=== PATIENT | male | born 1945 | race Caucasian/White ===

== ENCOUNTER 2019-11-17 19:33 | Emergency (ER) | payer MEDICARE, OTHER ==
[2019-11-17 19:43] VITALS: BP 189/80; PULSE 79
[2019-11-17 20:18] LABS: ANION GAP 12.9 mEq/L (7-13); CHLORIDE,CL 93 mmol/L (98-107); SODIUM,NA 129 mmol/L (136-145)
--- NOTE | 2019-11-17 21:17 | EDM.PDOC ---
ED HPI GENERAL MEDICAL PROBLEM - General Chief Complaint: General Stated Complaint: low sodium Time Seen by Provider: 11/17/19 19:40 Source of Information: Reports: Patient History Limitations: Reports: No Limitations - History of Present Illness INITIAL COMMENTS - FREE TEXT/NARRATIVE: [facility]ulatory, [facility] because of low sodium of 127. Patient states feels weak and tired though chronic , Has has low sodium in past. Intermittent night akening to go to bathroom and will feel short of breath walking back to bed. Notices worsening over past couple of week but no change in past 48 hours. No nausea or vomiting. No cough. Myelodysplastic disorder. - Related Data Allergies Allergy/AdvReac Type Severity Reaction Status Date / Time No Known Allergies Allergy Verified 11/17/19 19:43 Home Meds: Home Meds Aspirin [Adult Low Dose Aspirin EC] 81 mg PO DAILY 12/29/15 [History] Ergocalciferol (Vitamin D2) [Drisdol] 1 tab PO DAILY 12/29/15 [History] Insulin Aspart [NovoLOG] 5 - 6 units SUBCUT TIDAC 12/29/15 [History] Insulin NPH Hum/Reg Insulin Hm [Novolin 70-30 100 Unit/ml Vial] 16 units SUBCUT ACBREAKFAST 12/29/15 [History] Insulin NPH Hum/Reg Insulin Hm [Relion Novolin 70-30 Vial] 6 units SUBCUT ACDINNER 12/29/15 [History] Losartan Potassium 100 mg PO BID 12/29/15 [History] Multivitamin [Daily Shahida] 1 tab PO DAILY 12/29/15 [History] Sildenafil Citrate [Viagra] 100 mg PO DAILY PRN 12/29/15 [History] atenoloL [Atenolol] 100 mg PO BID 12/29/15 [History] Anagrelide HCl 1 mg PO BID 11/17/19 [History] Simvastatin 40 mg PO DAILY 11/17/19 [History] cloNIDine [Catapres] 0.2 mg PO BID 11/17/19 [History] Past Medical History HEENT History: Reports: Hard of Hearing Cardiovascular History: Reports: CAD, High Cholesterol, Hypertension Genitourinary History: Reports: Other (See Below) Other Genitourinary History: erectile dysfunction Endocrine/Metabolic History: Reports: Diabetes, Type II Hematologic History: Reports: Idiopathic Thrombocytopenia - Past Surgical History Musculoskeletal Surgical History: Reports: Other (See Below) Social & Family History - Tobacco Use Smoking Status *Q: Never Smoker - Caffeine Use Caffeine Use: Reports: Coffee - Alcohol Use Days Per Week of Alcohol Use: 7 Number of Drinks Per Day: 3 Total Drinks Per Week: 21 - Recreational Drug Use Recreational Drug Use: No ED ROS GENERAL - Review of Systems Review Of Systems: Comprehensive ROS is negative, except as noted in HPI. ED EXAM, GENERAL - Physical Exam Exam: See Below Exam Limited By: No Limitations General Appearance: Alert, No Apparent Distress, Thin Eye Exam: Bilateral Eye: EOMI, PERRL Ears: Normal External Exam Nose: Normal Inspection, Normal Mucosa Throat/Mouth: Normal Inspection, Normal Lips, Normal Oropharynx, Normal Voice Head: Atraumatic, Normocephalic Neck: Normal Inspection, Full Range of Motion Respiratory/Chest: No Respiratory Distress, Lungs Clear Cardiovascular: Normal Peripheral Pulses, Regular Rate, Rhythm, No Edema (1-2+) GI/Abdominal: Normal Bowel Sounds, Soft, Non-Tender Back Exam: Normal Inspection Extremities: Normal Inspection, Pedal Edema Neurological: Alert, Oriented, Normal Cognition, Normal Gait Psychiatric: Normal Affect, Normal Mood Skin Exam: Warm, Dry, Intact, Normal Color Course - Vital Signs Last Recorded V/S: Last Vital Signs Temp 96.9 F 11/17/19 19:38 Pulse 79 11/17/19 19:38 Resp 20 11/17/19 19:38 BP 189/80 H 11/17/19 19:38 Pulse Ox 93 L 11/17/19 19:38 - Orders/Labs/Meds Orders: Active Orders 24 hr Category Date Time Status CXR [Chest 1V Frontal] [CR] Urgent Exams 11/17/19 20:12 Taken CXR [Chest 2V] [CR] Urgent Exams 11/17/19 20:12 Stop Req Labs: Laboratory Tests 11/17/19 11/17/19 Range/Units 19:46 19:46 WBC 12.1 H (5.0-10.0) 10^3/uL RBC 3.90 L (4.6-6.2) 10^6/uL Hgb 11.6 L (14.0-18.0) g/dL Hct 33.9 L (40.0-54.0) % MCV 86.9 D (80-100) fL MCH 29.7 (27.0-34.0) pg MCHC 34.2 (33.0-35.0) g/dL Plt Count 326 D (150-450) 10^3/uL Neut % (Auto) 66.9 (42.2-75.2) % Lymph % (Auto) 17.2 L (20.5-50.1) % [place] % (Auto) 8.8 H (2-8) % Eos % (Auto) 5.5 H (1.0-3.0) % Baso % (Auto) 1.6 H (0.0-1.0) % Sodium 129 L (136-145) mmol/L Potassium 3.9 (3.5-5.1) mmol/L Chloride 93 L (98-107) mmol/L Carbon Dioxide 27 (21-32) mmol/L Anion Gap 12.9 (7-13) mEq/L BUN 22 H (7-18) mg/dL Creatinine 1.64 H (0.70-1.30) mg/dL Est Cr Clr Drug Dosing TNP Estimated GFR (MDRD) 41 BUN/Creatinine Ratio 13.4 (No establ ref range) Glucose 93 (74-99) mg/dL Calcium 8.0 L (8.5-10.1) mg/dL Total Bilirubin 0.5 (0.2-1.0) mg/dL AST 17 (15-37) U/L ALT 16 (16-63) U/L Alkaline Phosphatase 97 (46-116) U/L B-Natriuretic Peptide 437 H (0-100) pg/ml Total Protein 7.4 (6.4-8.2) g/dL Albumin 2.9 L (3.4-5.0) g/dL Globulin 4.5 Albumin/Globulin Ratio 0.64 Amylase 68 (25-115) U/L Lipase 501 H (73-393) U/L TSH, Ultra Sensitive 1.31 (0.36-3.74) uIU/mL - Radiology Interpretation Free Text/Narrative:: [facility] Final Radiology Report Call: [phone] assistance Online chat: [email or web address] Name: DELVIS GONZALEZ Age: 73Years M Date: 11/17/2019 SSN: -- : [id number] Study: XR CHEST 1 VIEW FRONTAL Requesting Physician: YARIEL GANDHI Images: 1 Addl Studies: Provided Clinical History: Contrast: Contrast Medium: Contrast Amount: Contrast Method: CONFIDENTIALITY STATEMENT This report is intended only for use by the referring physician, and only in accordance with law. If you received this in error, call [phone]. Page 1 of 1 PROCEDURE INFORMATION: Exam: XR Chest, 1 View Exam date and time: 11/17/2019 8:20 PM Age: 73 years old Clinical indication: Shortness of breath TECHNIQUE: Imaging protocol: XR of the chest Views: 1 view. COMPARISON: CR Chest 2V 11/16/2019 9:59 AM FINDINGS: Lungs: Right pleural effusion and adjacent infiltrate. Patchy bilateral infiltrates. Pleural space: Unremarkable. No pleural effusion. No pneumothorax. Heart/Mediastinum: Unremarkable. No cardiomegaly. Bones/joints: Bilateral rib fractures, age undetermined. IMPRESSION: Right pleural effusion and adjacent infiltrate. Bilateral rib fractures, age undetermined. Patchy bilateral infiltrates. Thank you for allowing us to participate in the care of your patient. Dictated and Authenticated by: Venus Jason MD 11/17/2019 8:35 PM Central Time ([place] & [place] - Re-Assessments/Exams Free Text/Narrative Re-Assessment/Exam: 11/18/19 06:[address] Eder EPSTEIN. Chronic low Na. Improved slightly from previous. CXR No pneumonia, appearance of worsening of right pleural effusion. Dr. Gaines will contact Radiology to set up tap and contact Oncology service in am. Does not feel patient neede to be transferred tonight. Patient is agreeable with plan stating "feel great" right now. Instructed he should return if any worsening of symptoms and [facility]. Departure - Departure Time of Disposition: 21:15 Disposition: Home, Self-Care 01 Condition: Good Clinical Impression: Hyponatremia, Pleural effusion - Discharge Information *PRESCRIPTION DRUG MONITORING PROGRAM REVIEWED*: No *COPY OF PRESCRIPTION DRUG MONITORING REPORT IN PATIENT ALIDA: No Instructions: Pleural Effusion Forms: ED Department Discharge Additional Instructions: [facility] Urgent follow up if severe SOB, Sudden worsening of symptoms, fever chills, weakness continue home medications Sepsis Event Note - Evaluation Sepsis Screening Result: No Definite Risk - Focused Exam Vital Signs: Vital Signs Temp Pulse Resp BP Pulse Ox 11/17/19 19:38 96.9 F 79 20 189/80 H 93 L Date Exam was Performed: 11/18/19 Time Exam was Performed: 05:57 - My Orders Last 24 Hours: My Active Orders 11/17/19 20:12 CXR [Chest 1V Frontal] [CR] Urgent CXR [Chest 2V] [CR] Urgent - Assessment/Plan Last 24 Hours: My Active Orders 11/17/19 20:12 CXR [Chest 1V Frontal] [CR] Urgent CXR [Chest 2V] [CR] Urgent
== END 2019-11-17 21:27 | disposition home or self-care (01) ==
LOC: DL.ED 19:33
DX: E87.1 Hypo-osmolality and hyponatremia (principal); J90 Pleural effusion, not elsewhere classified; I25.10 Atherosclerotic heart disease of native coronary artery without angina pectoris; E78.00 Pure hypercholesterolemia, unspecified; R06.02 Shortness of breath; I10 Essential (primary) hypertension; E11.9 Type 2 diabetes mellitus without complications; Z79.4 Long term (current) use of insulin; Z79.899 Other long term (current) drug therapy
CPT/HCPCS: 36415; 71045; 80053; 82150; 83690; 83880; 84443; 85025; 99284; 99285-25

== ENCOUNTER 2019-12-08 17:44 | Emergency (ER) | payer MEDICARE, OTHER ==
[2019-12-08 18:30] LABS: ANION GAP 9.2 mEq/L (7-13); CHLORIDE,CL 93 mmol/L (98-107); SODIUM,NA 131 mmol/L (136-145)
--- NOTE | 2019-12-08 19:10 | EDM.PDOC ---
ED HPI GENERAL MEDICAL PROBLEM - General Chief Complaint: General Stated Complaint: SODIUM IS TO LOW Time Seen by Provider: 12/08/19 20:10 Source of Information: Reports: Patient History Limitations: Reports: No Limitations - History of Present Illness INITIAL COMMENTS - FREE TEXT/NARRATIVE: ED for low sodium. Denies complaint but was seen at [facility] labs done and was told to go to ED. - Related Data Allergies Allergy/AdvReac Type Severity Reaction Status Date / Time No Known Allergies Allergy Verified 12/08/19 18:01 Home Meds: Home Meds Aspirin [Adult Low Dose Aspirin EC] 81 mg PO DAILY 12/29/15 [History] Ergocalciferol (Vitamin D2) [Drisdol] 1 tab PO DAILY 12/29/15 [History] Insulin Aspart [NovoLOG] 5 - 6 units SUBCUT TIDAC 12/29/15 [History] Insulin NPH Hum/Reg Insulin Hm [Novolin 70-30 100 Unit/ml Vial] 16 units SUBCUT ACBREAKFAST 12/29/15 [History] Insulin NPH Hum/Reg Insulin Hm [Relion Novolin 70-30 Vial] 6 units SUBCUT ACDINNER 12/29/15 [History] Losartan Potassium 100 mg PO BID 12/29/15 [History] Multivitamin [Daily Shahida] 1 tab PO BID 12/29/15 [History] Sildenafil Citrate [Viagra] 100 mg PO DAILY PRN 12/29/15 [History] atenoloL [Atenolol] 100 mg PO BID 12/29/15 [History] Anagrelide HCl 1 mg PO BID 11/17/19 [History] Simvastatin 40 mg PO DAILY 11/17/19 [History] cloNIDine [Catapres] 0.2 mg PO BID 11/17/19 [History] Past Medical History HEENT History: Reports: Hard of Hearing Cardiovascular History: Reports: CAD, High Cholesterol, Hypertension Genitourinary History: Reports: Other (See Below) Other Genitourinary History: erectile dysfunction Endocrine/Metabolic History: Reports: Diabetes, Type II Hematologic History: Reports: Idiopathic Thrombocytopenia - Past Surgical History Musculoskeletal Surgical History: Reports: Other (See Below) Social & Family History - Caffeine Use Caffeine Use: Reports: Coffee ED ROS GENERAL - Review of Systems Review Of Systems: See Below Constitutional: Reports: No Symptoms HEENT: Reports: No Symptoms Respiratory: Reports: No Symptoms Cardiovascular: Reports: Edema (feet) GI/Abdominal: Reports: No Symptoms : Reports: No Symptoms Musculoskeletal: Reports: No Symptoms Skin: Reports: No Symptoms Neurological: Reports: No Symptoms Psychiatric: Reports: Other (admits daily drinking at least 3-4 drinks) ED EXAM, GENERAL - Physical Exam Exam: See Below Exam Limited By: No Limitations General Appearance: Alert, No Apparent Distress Eye Exam: Bilateral Eye: EOMI Ears: Normal External Exam Nose: Normal Inspection Throat/Mouth: Normal Inspection Head: Atraumatic, Normocephalic Neck: Normal Inspection Respiratory/Chest: No Respiratory Distress, Lungs Clear, Normal Breath Sounds Cardiovascular: Normal Peripheral Pulses, Regular Rate, Rhythm GI/Abdominal: Normal Bowel Sounds, Soft Extremities: Pedal Edema (3*foot ankle) Neurological: Alert, Oriented, Normal Cognition, Normal Reflexes, No Motor/ Sensory Deficits Psychiatric: Normal Mood Skin Exam: Warm, Dry, Intact, Normal Color Course - Vital Signs Last Recorded V/S: Last Vital Signs Temp 96.9 F 12/08/19 20:07 Pulse 72 12/08/19 20:07 Resp 18 12/08/19 20:07 BP 146/67 H 12/08/19 20:07 Pulse Ox 92 L 12/08/19 20:07 - Orders/Labs/Meds Labs: Laboratory Tests 12/08/19 12/08/19 Range/Units 18:10 18:10 WBC 11.1 H (5.0-10.0) 10^3/uL RBC 4.09 L (4.6-6.2) 10^6/uL Hgb 12.0 L (14.0-18.0) g/dL Hct 35.4 L (40.0-54.0) % MCV 86.6 (80-100) fL MCH 29.3 (27.0-34.0) pg MCHC 33.9 (33.0-35.0) g/dL Plt Count 379 (150-450) 10^3/uL Neut % (Auto) 65.3 (42.2-75.2) % Lymph % (Auto) 19.1 L (20.5-50.1) % [place] % (Auto) 7.9 (2-8) % Eos % (Auto) 5.5 H (1.0-3.0) % Baso % (Auto) 2.2 H (0.0-1.0) % Sodium 131 L (136-145) mmol/L Potassium 4.2 (3.5-5.1) mmol/L Chloride 93 L (98-107) mmol/L Carbon Dioxide 33 H (21-32) mmol/L Anion Gap 9.2 (7-13) mEq/L BUN 34 H (7-18) mg/dL Creatinine 1.78 H (0.70-1.30) mg/dL Est Cr Clr Drug Dosing TNP Estimated GFR (MDRD) 37 Glucose 126 H (74-99) mg/dL Calcium 8.8 (8.5-10.1) mg/dL - Re-Assessments/Exams Free Text/Narrative Re-Assessment/Exam: 12/09/19 03:[address] Panda EPSTEIN [place]. Patient's Na improved from Friday asymptomatic. Renal function worsening. Recent increase in Lasix. recommend adjustment and monitoringof status. [facility]. Request to go by private vehicle. daughter to take patient. Departure - Departure Time of Disposition: 21:05 Disposition: DC/Tfer to Acute Hospital 02 Condition: Good Clinical Impression: Hyponatremia, CHF, Congestive heart failure, Renal insufficiency Edema Qualifiers: Edema type: unspecified Qualified Code(s): R60.9 - Edema, unspecified - Discharge Information *PRESCRIPTION DRUG MONITORING PROGRAM REVIEWED*: No *COPY OF PRESCRIPTION DRUG MONITORING REPORT IN PATIENT ALIDA: No Instructions: Edema, [id number] Forms: ED Department Discharge Additional Instructions: follow up with [facility] in [place] for decreased renal function, continued edema and chronic hyponatremia Sepsis Event Note (ED) - Focused Exam Vital Signs: Vital Signs Temp Pulse Resp BP Pulse Ox 12/08/19 20:07 96.9 F 72 18 146/67 H 92 L
[2019-12-08 20:07] VITALS: BP 146/67; PULSE 72
== END 2019-12-08 21:07 ==
LOC: DL.ED 17:44
DX: E87.1 Hypo-osmolality and hyponatremia (principal); I11.0 Hypertensive heart disease with heart failure; I50.9 Heart failure, unspecified; E11.9 Type 2 diabetes mellitus without complications; N28.9 Disorder of kidney and ureter, unspecified; R60.0 Localized edema; I25.10 Atherosclerotic heart disease of native coronary artery without angina pectoris; E78.00 Pure hypercholesterolemia, unspecified; Z79.4 Long term (current) use of insulin; Z79.82 Long term (current) use of aspirin; Z79.899 Other long term (current) drug therapy
CPT/HCPCS: 36415; 80048; 85025; 99284

== ENCOUNTER 2020-01-19 09:46 | Emergency (ER) | payer MEDICARE, OTHER ==
[2020-01-19 10:08] VITALS: BP 154/61; PULSE 83
--- NOTE | 2020-01-19 10:14 | EDM.PDOC ---
ED HPI GENERAL MEDICAL PROBLEM - General Chief Complaint: Gastrointestinal Problem Stated Complaint: GASTRIC PAIN Time Seen by Provider: 01/19/20 09:58 Source of Information: Reports: Patient History Limitations: Reports: No Limitations - History of Present Illness INITIAL COMMENTS - FREE TEXT/NARRATIVE: This 74 yo male patient reports to the ED under the direction of a [facility] provider due to a 5 day history of nausea/vomiting and diarrhea. The patient reports he has not had any vomiting or diarrhea today. The patient reports the [facility] prescribed him some acid pills yesterday which seems to have helped him. The patient reports he did have some toast and peanut butter today for breakfast. The patient reports he was tested for the Coronavirus while at the [facility] and refused to be tested again. Onset Date: 01/14/20 Duration: Improving Location: Reports: Abdomen Quality: Reports: Other Severity: Mild Improves with: Reports: None Worsens with: Reports: None Context: Reports: Other Associated Symptoms: Reports: No Other Symptoms - Related Data Allergies Allergy/AdvReac Type Severity Reaction Status Date / Time No Known Allergies Allergy Verified 01/19/20 10:07 Home Meds: Home Meds Aspirin [Adult Low Dose Aspirin EC] 81 mg PO DAILY 12/29/15 [History] Ergocalciferol (Vitamin D2) [Drisdol] 1 tab PO DAILY 12/29/15 [History] Insulin Aspart [NovoLOG] 5 - 6 units SUBCUT TIDAC 12/29/15 [History] Insulin NPH Hum/Reg Insulin Hm [Novolin 70-30 100 Unit/ml Vial] 16 units SUBCUT ACBREAKFAST 12/29/15 [History] Insulin NPH Hum/Reg Insulin Hm [Relion Novolin 70-30 Vial] 6 units SUBCUT ACDINNER 12/29/15 [History] Losartan Potassium 100 mg PO BID 12/29/15 [History] Multivitamin [Daily Shahida] 1 tab PO BID 12/29/15 [History] Sildenafil Citrate [Viagra] 100 mg PO DAILY PRN 12/29/15 [History] atenoloL [Atenolol] 100 mg PO BID 12/29/15 [History] Anagrelide HCl 1 mg PO BID 11/17/19 [History] Simvastatin 40 mg PO DAILY 11/17/19 [History] cloNIDine [Catapres] 0.2 mg PO BID 11/17/19 [History] Past Medical History HEENT History: Reports: Hard of Hearing Cardiovascular History: Reports: CAD, High Cholesterol, Hypertension Genitourinary History: Reports: Other (See Below) Other Genitourinary History: erectile dysfunction Endocrine/Metabolic History: Reports: Diabetes, Type II Hematologic History: Reports: Idiopathic Thrombocytopenia - Past Surgical History Musculoskeletal Surgical History: Reports: Other (See Below) Social & Family History - Family History Family Medical History: Noncontributory - Caffeine Use Caffeine Use: Reports: Coffee ED ROS GENERAL - Review of Systems Review Of Systems: Comprehensive ROS is negative, except as noted in HPI. ED EXAM, GI/ABD - Physical Exam Exam: See Below Exam Limited By: No Limitations General Appearance: Alert, WD/WN, No Apparent Distress, Thin Eyes: Bilateral: Normal Appearance, EOMI Ears: Normal External Exam, Normal Canal, Hearing Grossly Normal, Normal TMs Nose: Normal Inspection, Normal Mucosa, No Blood Throat/Mouth: Normal Inspection, Normal Lips, Normal Teeth, Normal Gums, Normal Oropharynx, Normal Voice, No Airway Compromise Head: Atraumatic, Normocephalic Neck: Normal Inspection, Supple, Non-Tender, Full Range of Motion Respiratory/Chest: No Respiratory Distress, Lungs Clear, Normal Breath Sounds, No Accessory Muscle Use, Chest Non-Tender Cardiovascular: Normal Peripheral Pulses, Regular Rate, Rhythm, No Edema, No Gallop, No JVD, No Murmur, No Rub GI/Abdominal Exam: Normal Bowel Sounds, Soft, Non-Tender, No Organomegaly, No Distention, No Abnormal Bruit, No Mass, Pelvis Stable (Male) Exam: Deferred Rectal (Males) Exam: Deferred Back Exam: Normal Inspection, Full Range of Motion, NT Extremities: Normal Inspection, Normal Range of Motion, Non-Tender, Normal Capillary Refill, No Pedal Edema Neurological: Alert, Oriented, CN II-XII Intact, Normal Cognition, Normal Gait, Normal Reflexes, No Motor/Sensory Deficits Psychiatric: Normal Affect, Normal Mood Skin Exam: Warm, Dry, Intact, Normal Color, No Rash Lymphatic: No Adenopathy Course - Vital Signs Last Recorded V/S: Last Vital Signs Temp 36.1 C 01/19/20 10:03 Pulse 83 01/19/20 10:03 Resp 14 01/19/20 10:03 BP 154/61 H 01/19/20 10:03 Pulse Ox 94 L 01/19/20 10:03 - Orders/Labs/Meds Labs: Laboratory Tests 01/19/20 01/19/20 Range/Units 10:15 10:15 WBC 10.1 H (5.0-10.0) 10^3/uL RBC 3.41 L (4.6-6.2) 10^6/uL Hgb 9.6 L D (14.0-18.0) g/dL Hct 29.3 L (40.0-54.0) % MCV 85.9 (80-100) fL MCH 28.2 (27.0-34.0) pg MCHC 32.8 L (33.0-35.0) g/dL Plt Count 337 (150-450) 10^3/uL Neut % (Auto) 67.7 (42.2-75.2) % Lymph % (Auto) 14.9 L (20.5-50.1) % [place] % (Auto) 12.8 H (2-8) % Eos % (Auto) 3.7 H (1.0-3.0) % Baso % (Auto) 0.9 (0.0-1.0) % Sodium 133 L (136-145) mmol/L Potassium 4.3 (3.5-5.1) mmol/L Chloride 97 L (98-107) mmol/L Carbon Dioxide 29 (21-32) mmol/L Anion Gap 11.3 (7-13) mEq/L BUN 22 H (7-18) mg/dL Creatinine 1.75 H (0.70-1.30) mg/dL Est Cr Clr Drug Dosing 37.09 mL/min Estimated GFR (MDRD) 38 BUN/Creatinine Ratio 12.6 (No establ ref range) Glucose 200 H (74-99) mg/dL Calcium 7.6 L (8.5-10.1) mg/dL Magnesium 1.6 L (1.8-2.4) mg/dL Total Bilirubin 0.6 (0.2-1.0) mg/dL AST 17 (15-37) U/L ALT 12 L (16-63) U/L Alkaline Phosphatase 91 (46-116) U/L B-Natriuretic Peptide 820 H (0-100) pg/ml Total Protein 6.7 (6.4-8.2) g/dL Albumin 2.7 L (3.4-5.0) g/dL Globulin 4.0 Albumin/Globulin Ratio 0.68 Amylase 21 L (25-115) U/L Lipase 133 (73-393) U/L Departure - Departure Time of Disposition: 10:58 Disposition: Home, Self-Care 01 Condition: Fair Clinical Impression: Gastroenteritis - Discharge Information *PRESCRIPTION DRUG MONITORING PROGRAM REVIEWED*: Not Applicable *COPY OF PRESCRIPTION DRUG MONITORING REPORT IN PATIENT ALIDA: Not Applicable Instructions: Viral Gastroenteritis, Adult, [id number] Forms: ED Department Discharge Care Plan Goals: The patient was advised of the examination and lab results during the visit. The patient was encouraged to stick to a BRAT diet (bananas, rice, applesauce and toast) with small frequent sips of fluid. If the patient has any additional symptoms or concerns, the patient should either return to the emergency department or follow-up with his primary care facility. Sepsis Event Note (ED) - Focused Exam Vital Signs: Vital Signs Temp Pulse Resp BP Pulse Ox 01/19/20 10:03 36.1 C 83 14 154/61 H 94 L
[2020-01-19 10:40] LABS: ANION GAP 11.3 mEq/L (7-13)
== END 2020-01-19 11:08 | disposition home or self-care (01) ==
LOC: DL.ED 09:46
DX: K52.9 Noninfective gastroenteritis and colitis, unspecified (principal); I10 Essential (primary) hypertension; I25.10 Atherosclerotic heart disease of native coronary artery without angina pectoris; E78.00 Pure hypercholesterolemia, unspecified; E11.9 Type 2 diabetes mellitus without complications; Z79.82 Long term (current) use of aspirin; Z79.899 Other long term (current) drug therapy; Z79.4 Long term (current) use of insulin
CPT/HCPCS: 36415; 80053; 82150; 83690; 83735; 83880; 85025; 99284

== ENCOUNTER 2020-01-28 09:33 | Emergency (ER) | payer MEDICARE, OTHER ==
--- NOTE | 2020-01-28 10:05 | EDM.PDOC ---
ED HPI GENERAL MEDICAL PROBLEM - General Chief Complaint: Neurological Problem Stated Complaint: PT STATES STROKE SYMTOMS Time Seen by Provider: 01/28/20 09:50 Source of Information: Reports: Patient, Old Records, RN, RN Notes Reviewed History Limitations: Reports: No Limitations - History of Present Illness INITIAL COMMENTS - FREE TEXT/NARRATIVE: Pt presents to ER from home by POV with c/o numbness in the B/L hands this morning with a 10 minute episode of inability to control the left hand. Pt denies headache, visual changes, slurred speech, difficulty with speech or swallowing, motor weakness of B/L upper or lower extremities. Pt reports recurring numbness of the hands, especially the right for well over a year. He has been seeing a chiropractor with the assumption that the numbness is from a "pinched nerve". He denies Hx of stroke. Denies chest pain, palpitations, shortness of breath, anxiety, cough, fever, recent travel, or any known COVID exposures. Onset: Today, Sudden Duration: Resolved Prior to Arrival Location: Reports: Upper Extremity, Left Severity: Moderate Improves with: Reports: None Worsens with: Reports: None - Related Data Allergies Allergy/AdvReac Type Severity Reaction Status Date / Time No Known Allergies Allergy Verified 01/28/20 10:14 Home Meds: Home Meds Aspirin [Adult Low Dose Aspirin EC] 81 mg PO DAILY 12/29/15 [History] Ergocalciferol (Vitamin D2) [Drisdol] 1 tab PO DAILY 12/29/15 [History] Insulin Aspart [NovoLOG] 5 - 6 units SUBCUT TIDAC 12/29/15 [History] Insulin NPH Hum/Reg Insulin Hm [Novolin 70-30 100 Unit/ml Vial] 15 units SUBCUT ACBREAKFAST 12/29/15 [History] Losartan Potassium 100 mg PO BID 12/29/15 [History] Multivitamin [Daily Hsahida] 1 tab PO BID 12/29/15 [History] Sildenafil Citrate [Viagra] 100 mg PO DAILY PRN 12/29/15 [History] atenoloL [Atenolol] 100 mg PO BID 12/29/15 [History] Simvastatin 40 mg PO DAILY 11/17/19 [History] cloNIDine [Catapres] 0.2 mg PO BID 11/17/19 [History] Past Medical History HEENT History: Reports: Hard of Hearing Cardiovascular History: Reports: CAD, High Cholesterol, Hypertension Genitourinary History: Reports: Other (See Below) Other Genitourinary History: erectile dysfunction Endocrine/Metabolic History: Reports: Diabetes, Type II Hematologic History: Reports: Idiopathic Thrombocytopenia - Past Surgical History Musculoskeletal Surgical History: Reports: Other (See Below) Social & Family History - Family History Family Medical History: Noncontributory - Caffeine Use Caffeine Use: Reports: Coffee - Living Situation & Occupation Living situation: Reports: Single Occupation: Retired ED ROS GENERAL - Review of Systems Review Of Systems: Comprehensive ROS is negative, except as noted in HPI. ED EXAM, NEURO - Physical Exam Exam: See Below Exam Limited By: No Limitations General Appearance: Alert, WD/WN, No Apparent Distress Eye Exam: Bilateral Eye: EOMI, Normal Inspection, PERRL Ears: Normal External Exam, Hearing Grossly Normal Nose: Normal Inspection, Normal Mucosa, No Blood Throat/Mouth: Normal Inspection, Normal Lips, Normal Oropharynx, Normal Voice, No Airway Compromise Head Exam: Atraumatic, Normocephalic Neck: Normal Inspection, Supple, Non-Tender, Full Range of Motion. No: Carotid Bruit, Lymphadenopathy (L), Lymphadenopathy (R) Respiratory/Chest: No Respiratory Distress, Lungs Clear, Normal Breath Sounds, No Accessory Muscle Use, Chest Non-Tender Cardiovascular: Regular Rate, Rhythm, No Edema GI/Abdominal: Normal Bowel Sounds, Soft, Non-Tender, No Distention Neurological: Alert, Normal Mood/Affect, Normal Dorsiflexion, CN II-XII Intact, Normal Plantar Flexion, Normal Gait, No Motor/Sensory Deficits, Oriented x 3, Other (NIH Score: 0) Back Exam: Normal Inspection Extremities: Normal Inspection, Normal Range of Motion, Non-Tender, No Pedal Edema, Normal Capillary Refill Psychiatric: Normal Affect, Normal Mood Skin Exam: Warm, Dry, Intact, Normal Color, No Rash EKG INTERPRETATION EKG Date: 01/28/20 Time: 09:56 Rhythm: Other (SR) Rate (Beats/Min): 69 [place]: Normal P-Wave: Present QRS: Normal ST-T: Normal QT: Normal Comparison: NA - No Prior EKG Course - Orders/Labs/Meds Orders: Active Orders 24 hr Category Date Time Status Blood Glucose Check, Bedside [RC] ONETIME Care 01/28/20 09:53 Active EKG 12 Lead [EKG Documentation Completion] [RC] STAT Care 01/28/20 09:53 Active CBC WITH AUTO DIFF [HEME] Stat Lab 01/28/20 10:10 Results COMPREHENSIVE METABOLIC PN,CMP [CHEM] Stat Lab 01/28/20 10:10 Received MAGNESIUM [CHEM] Stat Lab 01/28/20 10:10 Received MANUAL DIFFERENTIAL QA/NC [HEME] Stat Lab 01/28/20 10:10 Results Labs: Laboratory Tests 01/28/20 01/28/20 Range/Units 09:49 10:10 WBC 12.4 H (5.0-10.0) 10^3/uL RBC 3.35 L (4.6-6.2) 10^6/uL Hgb 9.3 L (14.0-18.0) g/dL Hct 28.7 L (40.0-54.0) % MCV 85.7 (80-100) fL MCH 27.8 (27.0-34.0) pg MCHC 32.4 L (33.0-35.0) g/dL Plt Count 500 H D (150-450) 10^3/uL Neut % (Auto) 70.7 (42.2-75.2) % Lymph % (Auto) 14.0 L (20.5-50.1) % [place] % (Auto) 8.2 H (2-8) % Eos % (Auto) 4.5 H (1.0-3.0) % Baso % (Auto) 2.6 H (0.0-1.0) % Add Manual Diff Yes POC Glucose 184 H (83-110) mg/dl - Radiology Interpretation Free Text/Narrative:: [facility] Final Radiology Report Call: [phone] assistance Online chat: [email or web address] Name: DELVIS GONZALEZ Age: 74Years M Date: 01/28/2020 SSN: -- : 1945 Study: CT HEAD WO CONT Requesting Physician: LISANDRO BOWER Images: [id number] Addl Studies: Provided Clinical History: Left upper extremity ataxia, numbness, weakness Contrast: Without Contrast Medium: Contrast Amount: Contrast Method: Page 1 of 2 PROCEDURE INFORMATION: Exam: CT Head Without Contrast Exam date and time: 01/28/2020 10:05 AM Age: 74 years old Clinical indication: Weakness, extremity; Left; Additional info: Left upper extremity ataxia, numbness, weakness TECHNIQUE: Imaging protocol: Computed tomography of the head without contrast. Radiation optimization: All CT scans at this facility use at least one of these dose optimization techniques: automated exposure control; mA and/or kV adjustment per patient size (includes targeted exams where dose is matched to clinical indication); or iterative reconstruction. Other technique: STROKE PROTOCOL was implemented. COMPARISON: No relevant prior studies available. FINDINGS: Brain: Prominent sulci. Patchy hypodensity of the cerebral white matter which are nonspecific but likely secondary to microangiopathic changes. Focus of hemorrhage in what appears to be a right parietal infarct. Additional remote right frontoparietal infarct. Ventricles: The ventricles are prominent secondary to diffuse volume loss/atrophy. Bones/joints: Unremarkable. No acute fracture. Sinuses: Visualized sinuses are unremarkable. No fluid levels. Mastoid air cells: Visualized mastoid air cells are well aerated. Soft tissues: Unremarkable. IMPRESSION: 1. Focus of hemorrhage in what appears to be a right parietal infarct. 2. Remainder of findings as described above. These findings were discussed with LISANDRO Cabrera at 11:15 a.m. MASSIEL. DELVIS GONZALEZ | Final Radiology Report CONFIDENTIALITY STATEMENT This report is intended only for use by the referring physician, and only in accordance with law. If you received this in error, call [phone]. Page 2 of 2 ASSESSMENT: ASPECTS ([place] Stroke Program Early CT Score) is 10 Thank you for allowing us to participate in the care of your patient. Dictated and Authenticated by: Felicitas Miller MD 01/28/2020 10:17 AM Central Time ([place] & [place]) [facility] Final Radiology Report Call: [phone] assistance Online chat: [email or web address] Name: DELVIS GONZALEZ Age: 74Years M Date: 01/28/2020 SSN: -- : 1945 Study: CT CERVICAL SPINE WO CONT Requesting Physician: LISANDRO BOWER Images: 271 Addl Studies: Provided Clinical History: B/L upper extremity numbness Contrast: Without Contrast Medium: Contrast Amount: Contrast Method: Page 1 of 2 PROCEDURE INFORMATION: Exam: CT Cervical Spine Without Contrast Exam date and time: 01/28/2020 10:05 AM Age: 74 years old Clinical indication: Numbness and weakness; Additional info: B/l upper extremity numbness TECHNIQUE: Imaging protocol: Computed tomography images of the cervical spine without contrast. Radiation optimization: All CT scans at this facility use at least one of these dose optimization techniques: automated exposure control; mA and/or kV adjustment per patient size (includes targeted exams where dose is matched to clinical indication); or iterative reconstruction. COMPARISON: No relevant prior studies available. FINDINGS: Vertebrae: No acute fracture. Normal alignment. Discs/Spinal canal/Neural foramina: Moderate bilateral neuroforaminal narrowing C3-C4, C5-C6 and mild bilateral C4-C5 and C6-C7. Moderate disc space narrowing C3-C7 with small anterior and posterior osteophytes. Pleural space: Partially imaged large layering right pleural effusion and smaller layering left pleural effusion. Vasculature: Vascular calcifications are present. IMPRESSION: 1. Partially imaged large layering right pleural effusion and smaller layering left pleural effusion. 2. No evidence of cervical spine fracture. Remainder of findings as described above. Thank you for allowing us to participate in the care of your patient. DELVIS GONZALEZ | Final Radiology Report CONFIDENTIALITY STATEMENT This report is intended only for use by the referring physician, and only in accordance with law. If you received this in error, call [phone]. Page 2 of 2 Dictated and Authenticated by: Felicitas Miller MD 01/28/2020 10:16 AM Central Time ([place] & [place]) - Re-Assessments/Exams Free Text/Narrative Re-Assessment/Exam: 01/28/20 10:20 [facility] One Call page to neurosurgeon, Dr. Garcia, awaiting call back. 01/28/20 10:35 Accepted to [facility] ER by Dr. Rivers with Dr. Garcia to consult. Departure - Departure Time of Disposition: 10:34 Disposition: DC/Tfer to Acute Hospital 02 Condition: Serious, Critical Clinical Impression: Hemorrhagic cerebrovascular accident (CVA) - Discharge Information *PRESCRIPTION DRUG MONITORING PROGRAM REVIEWED*: Not Applicable *COPY OF PRESCRIPTION DRUG MONITORING REPORT IN PATIENT ALIDA: Not Applicable Forms: ED Department Discharge, Interfacility Transfer EMTALA - My Orders Last 24 Hours: My Active Orders 01/28/20 09:53 Blood Glucose Check, Bedside [RC] ONETIME EKG 12 Lead [EKG Documentation Completion] [RC] STAT 01/28/20 10:10 CBC WITH AUTO DIFF [HEME] Stat COMPREHENSIVE METABOLIC PN,CMP [CHEM] Stat MAGNESIUM [CHEM] Stat MANUAL DIFFERENTIAL QA/NC [HEME] Stat - Assessment/Plan Last 24 Hours: My Active Orders 01/28/20 09:53 Blood Glucose Check, Bedside [RC] ONETIME EKG 12 Lead [EKG Documentation Completion] [RC] STAT 01/28/20 10:10 CBC WITH AUTO DIFF [HEME] Stat COMPREHENSIVE METABOLIC PN,CMP [CHEM] Stat MAGNESIUM [CHEM] Stat MANUAL DIFFERENTIAL QA/NC [HEME] Stat
--- NOTE | 2020-01-28 10:16 | CT ---
PROCEDURE INFORMATION: Exam: CT Cervical Spine Without Contrast Exam date and time: 01/28/2020 10:05 AM Age: 74 years old Clinical indication: Numbness and weakness; Additional info: B/l upper extremity numbness TECHNIQUE: Imaging protocol: Computed tomography images of the cervical spine without contrast. Radiation optimization: All CT scans at this facility use at least one of these dose optimization techniques: automated exposure control; mA and/or kV adjustment per patient size (includes targeted exams where dose is matched to clinical indication); or iterative reconstruction. COMPARISON: No relevant prior studies available. FINDINGS: Vertebrae: No acute fracture. Normal alignment. Discs/Spinal canal/Neural foramina: Moderate bilateral neuroforaminal narrowing C3-C4, C5-C6 and mild bilateral C4-C5 and C6-C7. Moderate disc space narrowing C3-C7 with small anterior and posterior osteophytes. Pleural space: Partially imaged large layering right pleural effusion and smaller layering left pleural effusion. Vasculature: Vascular calcifications are present. IMPRESSION: 1. Partially imaged large layering right pleural effusion and smaller layering left pleural effusion. 2. No evidence of cervical spine fracture. Remainder of findings as described above.
--- NOTE | 2020-01-28 10:17 | CT ---
PROCEDURE INFORMATION: Exam: CT Head Without Contrast Exam date and time: 01/28/2020 10:05 AM Age: 74 years old Clinical indication: Weakness, extremity; Left; Additional info: Left upper extremity ataxia, numbness, weakness TECHNIQUE: Imaging protocol: Computed tomography of the head without contrast. Radiation optimization: All CT scans at this facility use at least one of these dose optimization techniques: automated exposure control; mA and/or kV adjustment per patient size (includes targeted exams where dose is matched to clinical indication); or iterative reconstruction. Other technique: STROKE PROTOCOL was implemented. COMPARISON: No relevant prior studies available. FINDINGS: Brain: Prominent sulci. Patchy hypodensity of the cerebral white matter which are nonspecific but likely secondary to microangiopathic changes. Focus of hemorrhage in what appears to be a right parietal infarct. Additional remote right frontoparietal infarct. Ventricles: The ventricles are prominent secondary to diffuse volume loss/atrophy. Bones/joints: Unremarkable. No acute fracture. Sinuses: Visualized sinuses are unremarkable. No fluid levels. Mastoid air cells: Visualized mastoid air cells are well aerated. Soft tissues: Unremarkable. IMPRESSION: 1. Focus of hemorrhage in what appears to be a right parietal infarct. 2. Remainder of findings as described above. These findings were discussed with LISANDRO Cabrera at 11:15 a.m. EST. ASSESSMENT: ASPECTS ([place] Stroke Program Early CT Score) is 10
[2020-01-28 10:37] LABS: ANION GAP 10.8 mEq/L (7-13); CHLORIDE,CL 99 mmol/L (98-107); SODIUM,NA 134 mmol/L (136-145)
[2020-01-28 10:47] VITALS: BP 140/61; PULSE 66
[2020-01-28 12:16] LABS: PTT,PARTIAL THROMBOPLSTIN TIME 30.4 SEC (22.0-34.0)
== END 2020-01-28 11:46 ==
LOC: DL.ED 09:33
DX: I62.9 Nontraumatic intracranial hemorrhage, unspecified (principal); I10 Essential (primary) hypertension; E78.00 Pure hypercholesterolemia, unspecified; I25.10 Atherosclerotic heart disease of native coronary artery without angina pectoris; E11.9 Type 2 diabetes mellitus without complications; Z79.82 Long term (current) use of aspirin; Z79.4 Long term (current) use of insulin; Z79.899 Other long term (current) drug therapy
CPT/HCPCS: 36415; 70450; 72125; 80053; 82962; 83735; 85025; 85610; 85730; 93005; 93010; 99284; 99285-25

== ENCOUNTER 2020-02-01 17:44 | Emergency (ER) | payer MEDICARE, OTHER ==
[2020-02-01 17:55] VITALS: BP 178/69; PULSE 66
--- NOTE | 2020-02-01 18:08 | EDM.PDOC ---
ED HPI GENERAL MEDICAL PROBLEM - General Chief Complaint: Neuro Symptoms/Deficits Stated Complaint: AMBULANCE Time Seen by Provider: 02/01/20 17:55 Source of Information: Reports: Patient, EMS, Old Records, Provider (Dr. Reece), RN, RN Notes Reviewed, Significant Other (Janell) History Limitations: Reports: No Limitations - History of Present Illness INITIAL COMMENTS - FREE TEXT/NARRATIVE: Pt arrives to ER from home by ambulance just a couple of hours after arriving home after being discharged from [facility] in [place] where he was admitted for a hemorrhagic stroke. Pt states when he got home his right hand was numb and his speech was slurred. He admits that these symptoms are recurring, and not new. On arrival to ER pt's speech was clear and normal and his right hand was with no motor or sensory deficits. I called [facility] via One Call and spoke with the discharging physician who reports the symptoms were present during the admission, and have been worked up appropriately. In fact, the pt was about to be discharged early this morning when he complained of the right hand numbness and speech concern, so they held the discharge and repeated a CT Head which was stable. He was then discharged home this afternoon, and [facility]. Pt now feels back to normal in the ER. The pt had me speak to his S.O. Janell on the phone to explain all of this to her. She did not get to hear the discharge instructions, and was unaware that he was kept longer today to rescan due to these chronic recurring symptoms. She is now happy to come and pick him up to take him home. Onset: Unknown/Unsure Duration: Chronic, Recurring Location: Reports: Upper Extremity, Right Severity: Moderate Improves with: Reports: None Worsens with: Reports: None Associated Symptoms: Reports: No Other Symptoms - Related Data Allergies Allergy/AdvReac Type Severity Reaction Status Date / Time No Known Allergies Allergy Verified 02/01/20 17:56 Home Meds: Home Meds Aspirin [Adult Low Dose Aspirin EC] 81 mg PO DAILY 12/29/15 [History] Ergocalciferol (Vitamin D2) [Drisdol] 1 tab PO DAILY 12/29/15 [History] Insulin Aspart [NovoLOG] 5 - 6 units SUBCUT TIDAC 12/29/15 [History] Insulin NPH Hum/Reg Insulin Hm [Novolin 70-30 100 Unit/ml Vial] 15 units SUBCUT ACBREAKFAST 12/29/15 [History] Losartan Potassium 100 mg PO BID 12/29/15 [History] Multivitamin [Daily Shahida] 1 tab PO BID 12/29/15 [History] Sildenafil Citrate [Viagra] 100 mg PO DAILY PRN 12/29/15 [History] atenoloL [Atenolol] 100 mg PO BID 12/29/15 [History] Simvastatin 40 mg PO DAILY 11/17/19 [History] cloNIDine [Catapres] 0.2 mg PO BID 11/17/19 [History] Past Medical History HEENT History: Reports: Hard of Hearing Other HEENT History: has bilat. hearing aides Cardiovascular History: Reports: CAD, High Cholesterol, Hypertension Genitourinary History: Reports: Other (See Below) Other Genitourinary History: erectile dysfunction Musculoskeletal History: Reports: Neck Pain, Chronic Neurological History: Reports: CVA Endocrine/Metabolic History: Reports: Diabetes, Type II Hematologic History: Reports: Idiopathic Thrombocytopenia - Past Surgical History Musculoskeletal Surgical History: Reports: Other (See Below) Social & Family History - Family History Family Medical History: Noncontributory - Tobacco Use Smoking Status *Q: Unknown Ever Smoked - Caffeine Use Caffeine Use: Reports: Coffee - Recreational Drug Use Recreational Drug Use: No - Living Situation & Occupation Living situation: Reports: Single Occupation: Retired ED ROS GENERAL - Review of Systems Review Of Systems: Comprehensive ROS is negative, except as noted in HPI. ED EXAM, GENERAL - Physical Exam Exam: See Below Exam Limited By: No Limitations General Appearance: Alert, No Apparent Distress, Anxious Eye Exam: Bilateral Eye: Normal Inspection Ears: Hearing Grossly Normal Nose: Normal Inspection Throat/Mouth: Normal Lips, Normal Voice, No Airway Compromise Head: Atraumatic, Normocephalic Respiratory/Chest: No Respiratory Distress, Lungs Clear Cardiovascular: Regular Rate, Rhythm Neurological: Alert, Oriented, CN II-XII Intact, Normal Cognition, No Motor/Sensory Deficits Psychiatric: Anxious Skin Exam: Warm, Dry, Intact Course - Vital Signs Last Recorded V/S: Last Vital Signs Temp 97.6 F 02/01/20 17:52 Pulse 66 02/01/20 17:52 Resp 17 02/01/20 17:52 BP 178/69 H 02/01/20 17:52 Pulse Ox 94 L 02/01/20 17:52 Departure - Departure Time of Disposition: 18:05 Disposition: Home, Self-Care 01 Condition: Fair Clinical Impression: Encounter for medical screening examination, History of recent stroke - Discharge Information *PRESCRIPTION DRUG MONITORING PROGRAM REVIEWED*: Not Applicable *COPY OF PRESCRIPTION DRUG MONITORING REPORT IN PATIENT AL[place]: Not Applicable Instructions: Medical Screening Exam, Hemorrhagic Stroke Forms: ED Department Discharge Additional Instructions: [facility]. Ask your doctor to check your lungs/chest do to an abnormality found on a recent x-ray. Sepsis Event Note (ED) - Evaluation Sepsis Screening Result: No Definite Risk - Focused Exam Vital Signs: Vital Signs Temp Pulse Resp BP Pulse Ox 02/01/20 17:52 97.6 F 66 17 178/69 H 94 L
== END 2020-02-01 18:35 | disposition home or self-care (01) ==
LOC: DL.ED 17:44
DX: Z13.9 Encounter for screening, unspecified (principal); R20.0 Anesthesia of skin; I25.10 Atherosclerotic heart disease of native coronary artery without angina pectoris; E78.00 Pure hypercholesterolemia, unspecified; I10 Essential (primary) hypertension; E11.9 Type 2 diabetes mellitus without complications; Z86.73 Personal history of transient ischemic attack (TIA), and cerebral infarction without residual deficits; Z79.4 Long term (current) use of insulin; Z79.82 Long term (current) use of aspirin; Z79.899 Other long term (current) drug therapy
CPT/HCPCS: 99283

== ENCOUNTER 2020-02-04 23:04 | Observation (INO) | payer MEDICARE, OTHER ==
[2020-02-04] MEDS ORDERED: Insulin Regular, Human 100 Units/ML 3 ML Vial IV ONE (23:48)
--- NOTE | 2020-02-05 00:35 | EDM.PDOC ---
ED HPI GENERAL MEDICAL PROBLEM - General Chief Complaint: Neuro Symptoms/Deficits Stated Complaint: AMBULANCE Time Seen by Provider: 02/04/20 23:05 Source of Information: Reports: Patient, EMS, Family History Limitations: Reports: No Limitations - History of Present Illness INITIAL COMMENTS - FREE TEXT/NARRATIVE: ED via [facility] with report of "possible CVA". Patient hx discharged from on went to [place] then discharged today following stroke. Tonight, reported to have have difficulty walking and confused. Family report 1 1/2 drinks velvet and water, lack of sleep, patient remembers trying to get daughter to check blood sugars and got dizzy after number of sticks. Patient unsure why EMS called. Alert oriented on arrival, Answering questions appropriately, moving e xtremities. - Related Data Allergies Allergy/AdvReac Type Severity Reaction Status Date / Time No Known Allergies Allergy Verified 02/04/20 23:06 Home Meds: Home Meds Aspirin [Adult Low Dose Aspirin EC] 81 mg PO DAILY 12/29/15 [History] Insulin Aspart [NovoLOG] 4 units SUBCUT QAM 12/29/15 [History] Losartan Potassium 100 mg PO BID 12/29/15 [History] atenoloL [Atenolol] 100 mg PO BID 12/29/15 [History] cloNIDine [Catapres] 0.2 mg PO BID 11/17/19 [History] Acetaminophen 650 mg PO Q6HR PRN 02/05/20 [History] Anagrelide [Agrylin] 1 mg PO BID 02/05/20 [History] Betamethasone Dipropionate [Diprolene AF 0.05% Crm] 15 gm TP BID 02/05/20 [History] Cetirizine [ZyrTEC] 10 mg PO DAILY 02/05/20 [History] Cholecalciferol (Vitamin D3) [Vitamin D3] 2,000 unit PO DAILY 02/05/20 [History] Famotidine 20 mg PO DAILY 02/05/20 [History] Fluticasone Propionate [Flonase] 16 gm NS BID PRN 02/05/20 [History] Furosemide 40 mg PO DAILY 02/05/20 [History] Insulin Aspart [Insulin Aspart Flexpen] 2 unit SQ ACDINNER 02/05/20 [History] Insulin Aspart [Insulin Aspart Flexpen] 2 unit SQ ACLUNCH 02/05/20 [History] Insulin Isophane NPH, Human [HumuLIN N] 4 unit SQ QPM 02/05/20 [History] Insulin Isophane NPH, Human [HumuLIN N] 14 units SQ QAM 02/05/20 [History] Magnesium Oxide [Mag-Oxide Magnesium] 200 mg PO DAILY 02/05/20 [History] Ondansetron [Zofran] 4 mg PO Q12H PRN 02/05/20 [History] Patient's Own Medication [Ptom] 1 each PO DAILY 02/05/20 [History] atorvaSTATin [Lipitor] 40 mg PO BEDTIME 02/05/20 [History] diphenhydrAMINE [Benadryl] 25 mg PO Q12H PRN 02/05/20 [History] Past Medical History HEENT History: Reports: Hard of Hearing Other HEENT History: has bilat. hearing aides Cardiovascular History: Reports: CAD, High Cholesterol, Hypertension Genitourinary History: Reports: Other (See Below) Other Genitourinary History: erectile dysfunction Musculoskeletal History: Reports: Neck Pain, Chronic Neurological History: Reports: CVA Endocrine/Metabolic History: Reports: Diabetes, Type II Hematologic History: Reports: Idiopathic Thrombocytopenia - Past Surgical History Musculoskeletal Surgical History: Reports: Other (See Below) Social & Family History - Family History Family Medical History: Noncontributory - Tobacco Use Smoking Status *Q: Never Smoker Second Hand Smoke Exposure: No - Caffeine Use Caffeine Use: Reports: Coffee - Recreational Drug Use Recreational Drug Use: No - Living Situation & Occupation Living situation: Reports: Single Occupation: Retired ED ROS GENERAL - Review of Systems Review Of Systems: Comprehensive ROS is negative, except as noted in HPI. Constitutional: Reports: No Symptoms HEENT: Reports: No Symptoms Respiratory: Reports: No Symptoms Cardiovascular: Reports: No Symptoms Endocrine: Reports: High Glucose GI/Abdominal: Reports: No Symptoms Musculoskeletal: Reports: No Symptoms Skin: Reports: No Symptoms Neurological: Reports: Numbness, Difficulty Walking ED EXAM, NEURO - Physical Exam Exam: See Below Exam Limited By: No Limitations General Appearance: Alert, No Apparent Distress Eye Exam: Bilateral Eye: EOMI (4mm slight sluggish right), PERRL Ears: Normal External Exam Nose: Normal Inspection Throat/Mouth: Normal Inspection, Normal Lips, Normal Voice Head Exam: Atraumatic, Normocephalic Neck: Normal Inspection Respiratory/Chest: No Respiratory Distress, Lungs Clear, Normal Breath Sounds, Respiratory Distress Cardiovascular: Normal Peripheral Pulses, Regular Rate, Rhythm, No Edema GI/Abdominal: Normal Bowel Sounds, Soft Neurological: Alert, Normal Mood/Affect, Normal Dorsiflexion, CN II-XII Intact, Normal Plantar Flexion, Normal Reflexes, No Motor/Sensory Deficits, Oriented x 3, Abnormal Finger to Nose (right), Abnormal Motor (right hand, index finger riley mb weak). No: Tremor Back Exam: Normal Inspection, Full Range of Motion Extremities: Normal Inspection, Normal Range of Motion Psychiatric: Normal Affect, Normal Mood Skin Exam: Warm, Dry, Intact, Erythema (left anticubital) Course - Vital Signs Last Recorded V/S: Last Vital Signs Temp 98 F 02/05/20 01:55 Pulse 74 02/05/20 01:55 Resp 18 02/05/20 01:55 BP 125/50 L 02/05/20 01:55 Pulse Ox 96 02/05/20 01:55 - Orders/Labs/Meds Orders: Active Orders 24 hr Category Date Time Status Head wo Cont [CT] Urgent Exams 02/04/20 23:01 Ordered CULTURE BLOOD [BC] Stat Lab 02/05/20 00:05 Received CULTURE BLOOD [BC] Stat Lab 02/05/20 00:07 Results Blood Culture x2 Reflex Set [OM.PC] Stat Oth 02/05/20 00:07 Ordered Medication Orders Acetaminophen (Tylenol) 650 mg PO Q4H PRN PRN Reason: Pain (Mild 1-3)/fever Aspirin (Halfprin) 81 mg PO DAILY [facility] Atenolol (Tenormin) 100 mg PO BID [facility] Cholecalciferol (Vitamin D3) 50 mcg PO DAILY [facility] Clonidine HCl (Catapres) 0.2 mg PO BID [facility] Docusate Sodium (Colace) 100 mg PO BID PRN PRN Reason: Constipation Enoxaparin Sodium (Lovenox) 30 mg SUBCUT DAILY [facility] Famotidine (Pepcid) 20 mg PO DAILY [facility] Sodium Chloride (Normal Saline) 1,000 mls @ 100 mls/hr IV ASDIRECTED [facility] Last Admin: 02/05/20 02:19 Dose: 100 mls/hr Documented by: JERRY Insulin Human Lispro (Humalog) 0 unit SUBCUT WITHMEALSANDBED [facility]; Protocol Insulin Human NPH (Humulin N) 4 unit SQ PCDINNER [facility] Insulin Human NPH (Humulin N) 14 unit SQ QAM [facility] Magnesium Oxide (Magnesium Oxide) 250 mg PO DAILY [facility] Non-Formulary Medication (Anagrelide) 1 mg PO BID [facility] Non-Formulary Medication (Atorvastatin [Lipitor]) 40 mg PO BEDTIME [facility] Non-Formulary Medication (Cetirizine [Zyrtec]) 10 mg PO DAILY [facility] Ondansetron HCl (Zofran Odt) 4 mg PO Q4H PRN PRN Reason: nausea, able to take PO Oxycodone/Acetaminophen (Percocet 325-5 Mg) 1 tab PO Q4H PRN PRN Reason: Pain (moderate 4-6) Labs: Laboratory Tests 02/04/20 02/04/20 02/04/20 Range/Units 23:07 23:55 23:55 WBC 14.2 H (5.0-10.0) 10^3/uL RBC 3.49 L (4.6-6.2) 10^6/uL Hgb 9.8 L (14.0-18.0) g/dL Hct 29.5 L (40.0-54.0) % MCV 84.5 (80-100) fL MCH 28.1 (27.0-34.0) pg MCHC 33.2 (33.0-35.0) g/dL Plt Count 849 H D (150-450) 10^3/uL Add Manual Diff Yes Neutrophils % (Manual) 81 H (42-75) % Band Neutrophils % 5 % Lymphocytes % (Manual) 6 L (20-50) % Atypical Lymphs % 0 % Monocytes % (Manual) 2 (2-8) % Eosinophils % (Manual) 4 H (1-3) % Basophils % (Manual) 2 Platelet Estimate Marked inc Hypochromasia 3+ marked Poikilocytosis 2+ moderate PT 10.4 (9.0-12.0) SEC INR 1.1 (0.9-1.2) Sodium (136-145) mmol/L Potassium (3.5-5.1) mmol/L Chloride (98-107) mmol/L Carbon Dioxide (21-32) mmol/L Anion Gap (7-13) mEq/L BUN (7-18) mg/dL Creatinine (0.70-1.30) mg/dL Est Cr Clr Drug Dosing Estimated GFR (MDRD) BUN/Creatinine Ratio (No establ ref range) Glucose (74-99) mg/dL POC Glucose 344 H (83-110) mg/dl Lactic Acid (0.4-2.0) mmol/L Calcium (8.5-10.1) mg/dL Total Bilirubin (0.2-1.0) mg/dL AST (15-37) U/L ALT (16-63) U/L Alkaline Phosphatase (46-116) U/L Total Protein (6.4-8.2) g/dL Albumin (3.4-5.0) g/dL Globulin g/dL Albumin/Globulin Ratio Ethyl Alcohol (0) mg/dL 02/04/20 02/04/20 02/05/20 Range/Units 23:55 23:55 00:07 WBC (5.0-10.0) 10^3/uL RBC (4.6-6.2) 10^6/uL Hgb (14.0-18.0) g/dL Hct (40.0-54.0) % MCV (80-100) fL MCH (27.0-34.0) pg MCHC (33.0-35.0) g/dL Plt Count (150-450) 10^3/uL Add Manual Diff Neutrophils % (Manual) (42-75) % Band Neutrophils % % Lymphocytes % (Manual) (20-50) % Atypical Lymphs % % Monocytes % (Manual) (2-8) % Eosinophils % (Manual) (1-3) % Basophils % (Manual) Platelet Estimate Hypochromasia Poikilocytosis PT (9.0-12.0) SEC INR (0.9-1.2) Sodium 131 L (136-145) mmol/L Potassium 4.1 (3.5-5.1) mmol/L Chloride 95 L (98-107) mmol/L Carbon Dioxide 29 (21-32) mmol/L Anion Gap 11.1 (7-13) mEq/L BUN 27 H (7-18) mg/dL Creatinine 2.09 H (0.70-1.30) mg/dL Est Cr Clr Drug Dosing TNP Estimated GFR (MDRD) 31 BUN/Creatinine Ratio 12.9 (No establ ref range) Glucose 381 H (74-99) mg/dL POC Glucose (83-110) mg/dl Lactic Acid 1.7 (0.4-2.0) mmol/L Calcium 8.2 L (8.5-10.1) mg/dL Total Bilirubin 0.4 (0.2-1.0) mg/dL AST 14 L (15-37) U/L ALT 18 (16-63) U/L Alkaline Phosphatase 103 (46-116) U/L Total Protein 7.4 (6.4-8.2) g/dL Albumin 2.8 L (3.4-5.0) g/dL Globulin 4.6 g/dL Albumin/Globulin Ratio 0.61 Ethyl Alcohol < 3 (0) mg/dL 02/05/20 Range/Units 00:43 WBC (5.0-10.0) 10^3/uL RBC (4.6-6.2) 10^6/uL Hgb (14.0-18.0) g/dL Hct (40.0-54.0) % MCV (80-100) fL MCH (27.0-34.0) pg MCHC (33.0-35.0) g/dL Plt Count (150-450) 10^3/uL Add Manual Diff Neutrophils % (Manual) (42-75) % Band Neutrophils % % Lymphocytes % (Manual) (20-50) % Atypical Lymphs % % Monocytes % (Manual) (2-8) % Eosinophils % (Manual) (1-3) % Basophils % (Manual) Platelet Estimate Hypochromasia Poikilocytosis PT (9.0-12.0) SEC INR (0.9-1.2) Sodium (136-145) mmol/L Potassium (3.5-5.1) mmol/L Chloride (98-107) mmol/L Carbon Dioxide (21-32) mmol/L Anion Gap (7-13) mEq/L BUN (7-18) mg/dL Creatinine (0.70-1.30) mg/dL Est Cr Clr Drug Dosing Estimated GFR (MDRD) BUN/Creatinine Ratio (No establ ref range) Glucose (74-99) mg/dL POC Glucose 364 H (83-110) mg/dl Lactic Acid (0.4-2.0) mmol/L Calcium (8.5-10.1) mg/dL Total Bilirubin (0.2-1.0) mg/dL AST (15-37) U/L ALT (16-63) U/L Alkaline Phosphatase (46-116) U/L Total Protein (6.4-8.2) g/dL Albumin (3.4-5.0) g/dL Globulin g/dL Albumin/Globulin Ratio Ethyl Alcohol (0) mg/dL Meds: Medications Generic Name Dose Route Start Last Admin Trade Name Freq PRN Reason Stop Dose Admin Acetaminophen 650 mg 02/05/20 01:54 Tylenol PO Q4H PRN Pain (Mild 1-3)/fever Aspirin 81 mg 02/05/20 09:00 Halfprin PO DAILY [facility] Atenolol 100 mg 02/05/20 09:00 Tenormin PO BID [facility] Cholecalciferol 50 mcg 02/05/20 09:00 Vitamin D3 PO DAILY [facility] Clonidine HCl 0.2 mg 02/05/20 09:00 Catapres PO BID [facility] Docusate Sodium 100 mg 02/05/20 01:54 Colace PO BID PRN Constipation Enoxaparin Sodium 30 mg 02/05/20 09:00 Lovenox SUBCUT DAILY [facility] Famotidine 20 mg 02/05/20 09:00 Pepcid PO DAILY [facility] Sodium Chloride 1,000 mls @ 100 mls/hr 02/05/20 02:00 02/05/20 02:19 Normal Saline IV 100 mls/hr ASDIRECTED [facility] Administration Insulin Human Lispro 0 unit 02/05/20 08:00 Humalog SUBCUT WITHMEALSANDBED [facility] Protocol Insulin Human NPH 4 unit 02/05/20 18:30 Humulin N SQ PCDINNER [facility] Insulin Human NPH 14 unit 02/05/20 09:00 Humulin N SQ QAM [facility] Magnesium Oxide 250 mg 02/05/20 09:00 Magnesium Oxide PO DAILY [facility] Non-Formulary Medication 1 mg 02/05/20 09:00 Anagrelide PO BID [facility] Non-Formulary Medication 40 mg 02/05/20 21:00 Atorvastatin [Lipitor] PO BEDTIME [facility] Non-Formulary Medication 10 mg 02/05/20 09:00 Cetirizine [Zyrtec] PO DAILY [facility] Ondansetron HCl 4 mg 02/05/20 01:54 Zofran Odt PO Q4H PRN nausea, able to take PO Oxycodone/Acetaminophen 1 tab 02/05/20 01:54 Percocet 325-5 Mg PO Q4H PRN Pain (moderate 4-6) Discontinued Medications Generic Name Dose Route Start Last Admin Trade Name Freq PRN Reason Stop Dose Admin Insulin Human Regular 5 unit 02/04/20 23:48 02/04/20 23:56 Humulin R IV 02/04/20 23:49 5 units ONETIME ONE Administration Non-Formulary Medication 2 unit 02/05/20 17:00 Insulin Aspart [Insulin Aspart Flexpen] SQ ACDINNER [facility] Non-Formulary Medication 2 unit 02/05/20 11:00 Insulin Aspart [Insulin Aspart Flexpen] SQ ACLUNCH [facility] Non-Formulary Medication 4 units 02/05/20 09:00 Insulin Aspart SUBCUT QAM [facility] - Re-Assessments/Exams Free Text/Narrative Re-Assessment/Exam: TC Dr Frankel , accept patient for observation. Departure - Departure Time of Disposition: 01:15 Disposition: Refer to Observation Condition: Good Clinical Impression: Weakness of hand, Recent cerebrovascular accident (CVA), Hyperglycemia due to diabetes mellitus - Discharge Information Sepsis Event Note (ED) - Evaluation Sepsis Screening Result: No Definite Risk - Focused Exam Vital Signs: Vital Signs Temp Pulse Resp BP Pulse Ox 02/04/20 22:56 97.4 F 83 18 117/49 L 99 - My Orders Last 24 Hours: My Active Orders 02/04/20 23:01 Head wo Cont [CT] Urgent 02/05/20 00:05 CULTURE BLOOD [BC] Stat 02/05/20 00:07 CULTURE BLOOD [BC] Stat Blood Culture x2 Reflex Set [OM.PC] Stat - Assessment/Plan Last 24 Hours: My Active Orders 02/04/20 23:01 Head wo Cont [CT] Urgent 02/05/20 00:05 CULTURE BLOOD [BC] Stat 02/05/20 00:07 CULTURE BLOOD [BC] Stat Blood Culture x2 Reflex Set [OM.PC] Stat
[2020-02-05 00:38] LABS: SODIUM,NA 131 mmol/L (136-145)
[2020-02-05 00:39] LABS: ANION GAP 11.1 mEq/L (7-13); CHLORIDE,CL 95 mmol/L (98-107)
[2020-02-05] MEDS ORDERED: Acetaminophen 325 MG Tab PO PRN (01:54)
[2020-02-05] MEDS ORDERED: Acetaminophen/oxyCODONE 325-5 MG Tab PO PRN (01:54)
[2020-02-05] MEDS ORDERED: Docusate Sodium 100 MG Cap PO PRN (01:54)
[2020-02-05] MEDS ORDERED: Ondansetron 4 MG Tab.DIS PO PRN (01:54)
[2020-02-05] MEDS: Sodium Chloride 0.9% 1,000 ML IV SCH ×3 (02:19→22:24)
--- NOTE | 2020-02-05 05:30 | HP ---
CHIEF COMPLAINT: Weakness. HISTORY OF PRESENT ILLNESS: The patient is a 74-year-old gentleman with past medical history of diabetes mellitus, hypertension, dyslipidemia, coronary artery disease, and recent CVA, who was recently discharged from [place] following a CVA. Today, he was admitted through the emergency room because the patient was noted to have difficulty walking and being confused. Family reports the patient usually has 1-1/2 drinks of velvet and water, and because of the lack of sleep and being tired from the trip from [place], the patient was feeling dizzy. The daughter also checked the patient's blood sugar, which was elevated, and because of the above symptoms, she called in the ambulance, and she was brought into the emergency room. In the emergency room, the patient was alert and oriented on arrival and was answering questions appropriately and basically there are no lateralizing signs. The patient was even wondering why she was brought into the emergency room. The patient denies any headache, chest pain, shortness of breath, abdominal pain, nausea, vomiting, dysuria. PAST MEDICAL HISTORY: As in H and P. The patient also has history of idiopathic thrombocytosis. SOCIAL HISTORY: The patient is single, nonsmoker, and drinks alcohol on a regular basis. REVIEW OF SYSTEMS: As in HPI. The rest of the review of systems is negative. HOME MEDICATIONS: Clonidine 0.2 mg b.i.d., atenolol 100 mg b.i.d., Lipitor 10 mg daily, magnesium oxide 200 mg daily, anagrelide 1 mg twice a day, aspirin 81 mg daily, Pepcid 20 mg daily, Flonase nasal spray twice a day p.r.n., Lasix 40 mg daily, NovoLog 4 units in the morning, 2 units at noontime, and 2 units in the afternoon, NPH 14 units daily in the morning and 4 units in the evening, Zofran b.i.d. p.r.n., multivitamins with lutein twice a day, and vitamin D3, 50 mcg daily. ALLERGIES: No known drug allergies. PHYSICAL EXAMINATION: General: The patient is very pleasant. He is alert and oriented, not in any acute distress. Vital Signs: Blood pressure is 117/49, pulse of 83, respirations of 18, temperature of 97.4, saturation is 99% on room air. HEENT: Normocephalic. There are pink palpebral conjunctivae. Sclerae anicteric. Neck: No JVD. No lymphadenopathy. Neck is supple. Heart: Regular rate and rhythm. Normal S1 and S2. No gallops. No rubs. Lungs: Equal bilaterally. No crackles. No wheezing. Abdomen: Soft, nontender. Bowel sounds positive. Extremities: Remarkable for trace bilateral pedal edema. No calf tenderness. Neurologic: Just remarkable for some very mild [id number] deficit on the right arm. Otherwise, no other significant lateralizing sign. LABORATORY WORKUP: CBC: WBC is 14.2, hemoglobin is 9.8, hematocrit is 29.5, platelets are 849. There is also 3+ marked hypochromasia and 2+ moderate poikilocytosis. Protime is 10.4, INR is 1.1. Comp panel: Sodium is 131, chloride of 95, BUN of 27, glucose is 381, calcium of 8.2. The rest of the panel unremarkable. Alcohol level is less than 3. ADMITTING DIAGNOSES: 1. Generalized weakness. 2. Hyponatremia and hypochloremia. 3. Uncontrolled diabetes. 4. Recent cerebrovascular accident. 5. Hypertension. 6. Dyslipidemia. 7. Thrombocythemia/thrombocytosis. 8.Anemia. TREATMENT PLAN: The patient is going to be admitted to observation. He will be started on IV fluids with normal saline to correct the hyponatremia and hypochloremia, and he will be continued on his home medication and also placed on sliding scale insulin. He will be also on Lovenox for DVT prophylaxis and the rest of the management as necessary, and the patient is a full code. [facility] /[id number] ESTELA
[2020-02-05] MEDS ORDERED: Insulin Lispro 100 Units/ML 3 ML Vial SUBCUT SCH (08:00)
[2020-02-05] MEDS ORDERED: INSULIN ASPART 4 UNIT SUBCUT SCH (09:00)
[2020-02-05] MEDS ORDERED: Aspirin 81 MG Tab.EC PO SCH (09:00)
[2020-02-05] MEDS ORDERED: Insulin Isophane NPH, Human 100 Units/ML 3 ML Vial SQ SCH ×2 (09:00→18:30)
[2020-02-05] MEDS ORDERED: Atenolol 50 MG Tab PO SCH (09:00)
[2020-02-05] MEDS ORDERED: cloNIDine 0.1 MG Tab PO SCH (09:00)
[2020-02-05] MEDS: Cholecalciferol (Vitamin D3) 25 MCG Tab PO SCH (09:15)
[2020-02-05] MEDS: Famotidine 20 MG Tab PO SCH (09:15)
[2020-02-05] MEDS: Enoxaparin 30 MG/0.3 ML Syringe SUBCUT SCH (09:16)
[2020-02-05] MEDS ORDERED: Ondansetron 4 MG Tab.DIS**OWN MED PO PRN (09:52)
[2020-02-05] MEDS: ANAGRELIDE 0.5 MG PO SCH ×2 (10:15→20:55)
[2020-02-05] MEDS: INSULIN ISOPHANE NPH HUMAN 100 UNIT/ML SQ SCH ×3 (10:16→17:57)
[2020-02-05] MEDS: NOVOLOG 100 UNIT/ML SUBCUT SCH ×4 (10:17→21:14)
[2020-02-05] MEDS: INSULIN SUBCUT SCH ×4 (10:17→21:14)
[2020-02-05] MEDS ORDERED: INSULIN ASPART 2 UNIT SQ SCH ×2 (11:00→17:00)
[2020-02-05] MEDS: ATENOLOL 100 MG PO SCH (20:52)
[2020-02-05] MEDS: CLONIDINE 0.2 MG PO SCH (20:53)
[2020-02-05] MEDS ORDERED: atorvaSTATin 10 MG Tab PO SCH (21:00)
[2020-02-06 06:41] LABS: ANION GAP 14.1 mEq/L (7-13)
[2020-02-06 08:27] VITALS: BP 157/66; PULSE 80
[2020-02-06] MEDS: Enoxaparin 30 MG/0.3 ML Syringe SUBCUT SCH ×2 (08:32→08:52)
[2020-02-06] MEDS: Famotidine 20 MG Tab PO SCH (08:32)
[2020-02-06] MEDS: Cholecalciferol (Vitamin D3) 25 MCG Tab PO SCH (08:32)
[2020-02-06] MEDS: NOVOLOG 100 UNIT/ML SUBCUT SCH (08:34)
[2020-02-06] MEDS: INSULIN SUBCUT SCH (08:34)
[2020-02-06] MEDS: INSULIN ISOPHANE NPH HUMAN 100 UNIT/ML SQ SCH (08:35)
[2020-02-06] MEDS: ANAGRELIDE 0.5 MG PO SCH (08:37)
[2020-02-06] MEDS: CLONIDINE 0.2 MG PO SCH (08:37)
[2020-02-06] MEDS: ATENOLOL 100 MG PO SCH (08:37)
[2020-02-06] MEDS ORDERED: Aspirin 81 MG Tab.EC**OWN MED PO SCH (09:00)
--- NOTE | 2020-02-06 10:53 | PN ---
DATE: 02/06/2020 SUBJECTIVE: The patient continues to do well, and the patient denies any significant ongoing complaints. Denies any chest pain, shortness of breath, headache, abdominal pain, nor any other complaints. The patient mentioned that he is ready to go home. OBJECTIVE: Vital Signs: Blood pressure is 157/66, pulse of 80, respirations of 16, temperature of 99.2, and saturation is 93% on room air. Heart: Regular rate and rhythm. Normal S1 and S2. No gallops. No rubs. Lungs: Equal bilaterally. No crackles. No wheezing. Abdomen: Soft, nontender. Bowel sounds positive. Extremities: Negative for any pedal edema. No calf tenderness. Neurologic: Negative for any significant lateralizing sign. PLAN: We will discharge the patient home today, and I am going to resume his home medication, and [facility] scheduled and follow up with [facility] as also previously scheduled. [facility] /[id number]
--- NOTE | 2020-02-06 19:18 | DISCH ---
FINAL DIAGNOSES: 1. Generalized weakness secondary to fatigue, recent cerebrovascular accident, hyponatremia, and hypochloremia. 2. Type 2 diabetes mellitus. 3. Recent cerebrovascular with mild deficit to the right arm/hemiparesis. 4. Hypertension. 5. Dyslipidemia. 6. Thrombocythemia. 7. Anemia. BRIEF HISTORY OF PRESENT ILLNESS: Please see H and P. PERTINENT LABORATORIES, X-RAY, AND OTHER TESTS ON ADMISSION: See H and P. HOSPITAL COURSE: The patient was admitted to General Medicine floor under observation, and the patient was started on IV fluids. He was placed on sliding scale insulin as his blood sugar was running moderately elevated when he came in, and he was also placed on Lovenox for DVT prophylaxis, and he was resumed on his home medications. The patient did well. Hospital course was uncomplicated, and he was subsequently discharged. CONDITION ON DISCHARGE: Improved. DISCHARGE INSTRUCTIONS: The patient is to follow up with the [facility] as scheduled from [place] and also to follow up with [facility] as previously scheduled. [facility] /[id number]
== END 2020-02-06 11:30 | disposition home or self-care (01) ==
LOC: DL.ED 23:04 → DL.MS 02-05 01:13
PROVIDERS: ADMIT Internal Medicine; ATTEND Internal Medicine
DX: R53.1 Weakness (principal); E11.65 Type 2 diabetes mellitus with hyperglycemia; E87.1 Hypo-osmolality and hyponatremia; E87.8 Other disorders of electrolyte and fluid balance, not elsewhere classified; E78.5 Hyperlipidemia, unspecified; D47.3 Essential (hemorrhagic) thrombocythemia; I69.351 Hemiplegia and hemiparesis following cerebral infarction affecting right dominant side; D64.9 Anemia, unspecified; E78.00 Pure hypercholesterolemia, unspecified; I10 Essential (primary) hypertension; I25.10 Atherosclerotic heart disease of native coronary artery without angina pectoris; Z79.82 Long term (current) use of aspirin; Z79.899 Other long term (current) drug therapy
CPT/HCPCS: 36415; 70450; 80048; 80053; 80307; 82962; 83605; 85025; 85610; 87040; 93005; 96360; 96361; 96372; 99285-25; A9270-GY; G0378; J1650; J1815-GY; J7030

== ENCOUNTER 2020-03-24 11:35 | Emergency (ER) | payer MEDICARE, OTHER ==
--- NOTE | 2020-03-24 11:57 | EDM.PDOC ---
ED HPI GENERAL MEDICAL PROBLEM - General Stated Complaint: [facility] CALLED Time Seen by Provider: 03/24/20 11:57 Source of Information: Reports: Patient, Provider (MARIANO Shankar from [place]), RN, RN Notes Reviewed History Limitations: Reports: Respiratory Distress - History of Present Illness Onset: Today, Sudden - Related Data Allergies Allergy/AdvReac Type Severity Reaction Status Date / Time No Known Allergies Allergy Verified 02/04/20 23:06 Home Meds: Home Meds Aspirin [Adult Low Dose Aspirin EC] 81 mg PO DAILY 12/29/15 [History] Insulin Aspart [NovoLOG] 4 units SUBCUT QAM 12/29/15 [History] Losartan Potassium 100 mg PO BID 12/29/15 [History] atenoloL [Atenolol] 100 mg PO BID 12/29/15 [History] cloNIDine [Catapres] 0.2 mg PO BID 11/17/19 [History] Acetaminophen 650 mg PO Q6HR PRN 02/05/20 [History] Anagrelide [Agrylin] 1 mg PO BID 02/05/20 [History] Betamethasone Dipropionate [Diprolene AF 0.05% Crm] 15 gm TP BID PRN 02/05/20 [History] Cetirizine [ZyrTEC] 10 mg PO DAILY 02/05/20 [History] Cholecalciferol (Vitamin D3) [Vitamin D3] 2,000 unit PO DAILY 02/05/20 [History] Famotidine 20 mg PO DAILY PRN 02/05/20 [History] Fluticasone Propionate [Flonase] 16 gm NS BID PRN 02/05/20 [History] Furosemide 40 mg PO DAILY 02/05/20 [History] Insulin Aspart [Insulin Aspart Flexpen] 2 unit SQ ACDINNER 02/05/20 [History] Insulin Aspart [Insulin Aspart Flexpen] 2 unit SQ ACLUNCH 02/05/20 [History] Insulin Isophane NPH, Human [HumuLIN N] 4 unit SQ QPM 02/05/20 [History] Insulin Isophane NPH, Human [HumuLIN N] 14 units SQ QAM 02/05/20 [History] Magnesium Oxide [Mag-Oxide Magnesium] 200 mg PO DAILY 02/05/20 [History] Ondansetron [Zofran] 4 mg PO Q12H PRN 02/05/20 [History] Patient's Own Medication [Ptom] 1 each PO BID 02/05/20 [History] atorvaSTATin [Lipitor] 10 mg PO BEDTIME 02/05/20 [History] diphenhydrAMINE [Benadryl] 25 mg PO Q12H PRN 02/05/20 [History] Past Medical History HEENT History: Reports: Hard of Hearing Other HEENT History: has bilat. hearing aides Cardiovascular History: Reports: CAD, High Cholesterol, Hypertension Genitourinary History: Reports: Other (See Below) Other Genitourinary History: erectile dysfunction Musculoskeletal History: Reports: Neck Pain, Chronic Neurological History: Reports: CVA Endocrine/Metabolic History: Reports: Diabetes, Type II Hematologic History: Reports: Idiopathic Thrombocytopenia - Past Surgical History Musculoskeletal Surgical History: Reports: Other (See Below) Social & Family History - Family History Family Medical History: Noncontributory - Caffeine Use Caffeine Use: Reports: Coffee - Living Situation & Occupation Living situation: Reports: Single Occupation: Retired ED ROS GENERAL - Review of Systems Review Of Systems: Comprehensive ROS is negative, except as noted in HPI. ED EXAM, GENERAL - Physical Exam Exam: See Below Course - Vital Signs Last Recorded V/S: Last Vital Signs Temp 97.8 F 03/24/20 18:34 Pulse 76 03/24/20 18:34 Resp 18 03/24/20 18:34 BP 165/73 H 03/24/20 18:34 Pulse Ox 98 03/24/20 18:34 - Orders/Labs/Meds Orders: Active Orders 24 hr Category Date Time Status EKG Documentation Completion [RC] STAT Care 03/24/20 11:44 Active CULTURE BLOOD [BC] Stat Lab 03/24/20 11:58 Received CULTURE BLOOD [BC] Stat Lab 03/24/20 12:05 Received Blood Culture x2 Reflex Set [OM.PC] Stat Oth 03/24/20 11:44 Ordered Labs: Laboratory Tests 03/24/20 03/24/20 03/24/20 Range/Units 11:58 11:58 11:58 WBC 13.2 H (5.0-10.0) 10^3/uL RBC 2.95 L (4.6-6.2) 10^6/uL Hgb 8.0 L (14.0-18.0) g/dL Hct 24.4 L (40.0-54.0) % MCV 82.7 (80-100) fL MCH 27.1 (27.0-34.0) pg MCHC 32.8 L (33.0-35.0) g/dL Plt Count 476 H D (150-450) 10^3/uL Lymph % (Auto) 10.9 L (20.5-50.1) % Story % (Auto) 8.9 H (2-8) % Eos % (Auto) 2.9 (1.0-3.0) % Add Manual Diff Yes Neutrophils % (Manual) 78 H (42-75) % Band Neutrophils % 2 % Lymphocytes % (Manual) 13 L (20-50) % Atypical Lymphs % Not Reportable Monocytes % (Manual) 6 (2-8) % Eosinophils % (Manual) 1 (1-3) % Toxic Granulation 2+ moderate Hypochromasia 1+ slight Anisocytosis 1+ slight Microcytosis 1+ slight PT 11.9 (9.0-12.0) SEC INR 1.3 H (0.9-1.2) D-Dimer, Quantitative (0-400) ng/mL Sodium 128 L (136-145) mmol/L Potassium 4.4 (3.5-5.1) mmol/L Chloride 95 L (98-107) mmol/L Carbon Dioxide 27 (21-32) mmol/L Anion Gap 10.4 (7-13) mEq/L BUN 25 H (7-18) mg/dL Creatinine 1.56 H (0.70-1.30) mg/dL Est Cr Clr Drug Dosing 41.35 mL/min Estimated GFR (MDRD) 43 BUN/Creatinine Ratio 16.0 (No establ ref range) Glucose 217 H (74-99) mg/dL POC Glucose (83-110) mg/dl Lactic Acid (0.4-2.0) mmol/L Calcium 8.2 L (8.5-10.1) mg/dL Total Bilirubin 0.8 (0.2-1.0) mg/dL AST 15 (15-37) U/L ALT 16 (16-63) U/L Alkaline Phosphatase 122 H (46-116) U/L Troponin I < 0.017 (0.000-0.056) ng/mL C-Reactive Protein 10.0 H (0.0-0.9) mg/dL B-Natriuretic Peptide 789 H (0-100) pg/ml Total Protein 7.4 (6.4-8.2) g/dL Albumin 2.7 L (3.4-5.0) g/dL Globulin 4.7 Albumin/Globulin Ratio 0.57 Urine Color (YELLOW) Urine Appearance (CLEAR) Urine pH (5.0-9.0) Ur Specific [employer] [place] (1.005-1.030) Urine Protein (NEGATIVE) Urine Glucose (UA) (NEGATIVE) Urine Ketones (NEGATIVE) Urine Occult Blood (NEGATIVE) Urine Nitrite (NEGATIVE) Urine Bilirubin (NEGATIVE) Urine Urobilinogen (0.2-1.0) mg/dL Ur Leukocyte Esterase (NEGATIVE) Urine RBC /HPF Urine WBC (0-5/HPF) /HPF Ur Epithelial Cells (NOT SEEN) /HPF Urine Bacteria (0-FEW/HPF) /HPF SARS CoV-2 RNA Rapid CLARENCE (NEGATIVE) 03/24/20 03/24/20 03/24/20 Range/Units 11:58 11:58 12:31 WBC (5.0-10.0) 10^3/uL RBC (4.6-6.2) 10^6/uL Hgb (14.0-18.0) g/dL Hct (40.0-54.0) % MCV (80-100) fL MCH (27.0-34.0) pg MCHC (33.0-35.0) g/dL Plt Count (150-450) 10^3/uL Lymph % (Auto) (20.5-50.1) % Story % (Auto) (2-8) % Eos % (Auto) (1.0-3.0) % Add Manual Diff Neutrophils % (Manual) (42-75) % Band Neutrophils % % Lymphocytes % (Manual) (20-50) % Atypical Lymphs % Monocytes % (Manual) (2-8) % Eosinophils % (Manual) (1-3) % Toxic Granulation Hypochromasia Anisocytosis Microcytosis PT (9.0-12.0) SEC INR (0.9-1.2) D-Dimer, Quantitative 351 (0-400) ng/mL Sodium (136-145) mmol/L Potassium (3.5-5.1) mmol/L Chloride (98-107) mmol/L Carbon Dioxide (21-32) mmol/L Anion Gap (7-13) mEq/L BUN (7-18) mg/dL Creatinine (0.70-1.30) mg/dL Est Cr Clr Drug Dosing mL/min Estimated GFR (MDRD) BUN/Creatinine Ratio (No establ ref range) Glucose (74-99) mg/dL POC Glucose (83-110) mg/dl Lactic Acid 1.2 (0.4-2.0) mmol/L Calcium (8.5-10.1) mg/dL Total Bilirubin (0.2-1.0) mg/dL AST (15-37) U/L ALT (16-63) U/L Alkaline Phosphatase (46-116) U/L Troponin I (0.000-0.056) ng/mL C-Reactive Protein (0.0-0.9) mg/dL B-Natriuretic Peptide (0-100) pg/ml Total Protein (6.4-8.2) g/dL Albumin (3.4-5.0) g/dL Globulin Albumin/Globulin Ratio Urine Color Yellow (YELLOW) Urine Appearance Slightly cloudy (CLEAR) Urine pH 5.5 (5.0-9.0) Ur Specific [employer] 1.015 (1.005-1.030) Urine Protein Trace H (NEGATIVE) Urine Glucose (UA) 100 H (NEGATIVE) Urine Ketones Negative (NEGATIVE) Urine Occult Blood Negative (NEGATIVE) Urine Nitrite Negative (NEGATIVE) Urine Bilirubin Negative (NEGATIVE) Urine Urobilinogen 0.2 (0.2-1.0) mg/dL Ur Leukocyte Esterase Negative (NEGATIVE) Urine RBC 0-5 /HPF Urine WBC 0-5 (0-5/HPF) /HPF Ur Epithelial Cells Few (NOT SEEN) /HPF Urine Bacteria Rare (0-FEW/HPF) /HPF SARS CoV-2 RNA Rapid CLARENCE (NEGATIVE) 03/24/20 03/24/20 Range/Units 12:40 16:09 WBC (5.0-10.0) 10^3/uL RBC (4.6-6.2) 10^6/uL Hgb (14.0-18.0) g/dL Hct (40.0-54.0) % MCV (80-100) fL MCH (27.0-34.0) pg MCHC (33.0-35.0) g/dL Plt Count (150-450) 10^3/uL Lymph % (Auto) (20.5-50.1) % Story % (Auto) (2-8) % Eos % (Auto) (1.0-3.0) % Add Manual Diff Neutrophils % (Manual) (42-75) % Band Neutrophils % % Lymphocytes % (Manual) (20-50) % Atypical Lymphs % Monocytes % (Manual) (2-8) % Eosinophils % (Manual) (1-3) % Toxic Granulation Hypochromasia Anisocytosis Microcytosis PT (9.0-12.0) SEC INR (0.9-1.2) D-Dimer, Quantitative (0-400) ng/mL Sodium (136-145) mmol/L Potassium (3.5-5.1) mmol/L Chloride (98-107) mmol/L Carbon Dioxide (21-32) mmol/L Anion Gap (7-13) mEq/L BUN (7-18) mg/dL Creatinine (0.70-1.30) mg/dL Est Cr Clr Drug Dosing mL/min Estimated GFR (MDRD) BUN/Creatinine Ratio (No establ ref range) Glucose (74-99) mg/dL POC Glucose 254 H (83-110) mg/dl Lactic Acid (0.4-2.0) mmol/L Calcium (8.5-10.1) mg/dL Total Bilirubin (0.2-1.0) mg/dL AST (15-37) U/L ALT (16-63) U/L Alkaline Phosphatase (46-116) U/L Troponin I (0.000-0.056) ng/mL C-Reactive Protein (0.0-0.9) mg/dL B-Natriuretic Peptide (0-100) pg/ml Total Protein (6.4-8.2) g/dL Albumin (3.4-5.0) g/dL Globulin Albumin/Globulin Ratio Urine Color (YELLOW) Urine Appearance (CLEAR) Urine pH (5.0-9.0) Ur Specific [employer] (1.005-1.030) Urine Protein (NEGATIVE) Urine Glucose (UA) (NEGATIVE) Urine Ketones (NEGATIVE) Urine Occult Blood (NEGATIVE) Urine Nitrite (NEGATIVE) Urine Bilirubin (NEGATIVE) Urine Urobilinogen (0.2-1.0) mg/dL Ur Leukocyte Esterase (NEGATIVE) Urine RBC /HPF Urine WBC (0-5/HPF) /HPF Ur Epithelial Cells (NOT SEEN) /HPF Urine Bacteria (0-FEW/HPF) /HPF SARS CoV-2 RNA Rapid CLARENCE Negative (NEGATIVE) Meds: Medications Discontinued Medications Generic Name Dose Route Start Last Admin Trade Name Bud PRN Reason Stop Dose Admin Insulin Human Lispro 4 unit 03/24/20 17:59 03/24/20 18:27 Humalog SUBCUT 03/24/20 18:00 4 units ONETIME ONE Administration Insulin Human Regular 5 unit 03/24/20 17:22 03/24/20 18:03 Humulin R IV 03/24/20 17:23 Not Given ONETIME ONE Iopamidol 100 ml 03/24/20 17:52 03/24/20 18:20 Isovue-370 (76%) IVPUSH 03/24/20 17:53 100 ml ONETIME ONE Administration - Re-Assessments/Exams Free Text/Narrative Re-Assessment/Exam: 03/24/20 18:53 [id number] called the [facility] about transfer. Spoke with Dr. Jauregui who states he would call me back. He did not call back. [facility] [address] [facility]gui. He states he cannot take a patient that needs a thoracentesis at this time. States the patient needs to be sent elsewhere. [address] [facility] was [address]. Diaz accepted the patient for transfer. 1830 Daughter Nadeen called. She states she refuses for the patient to go to [facility]. Nursing staff explained to the daughter that [facility] was unable to take the patient, [facility] is on diversion. [place] was the next nearest facility to transfer the patient. Patient states he would like to be transferred to [place]. He states he has talked to his daughter. Departure - Departure Time of Disposition: 19:02 Disposition: DC/Tfer to Acute Hospital 02 Condition: Fair Clinical Impression: Pleural effusion Myeloblastic leukemia Qualifiers: Leukemia Active/Remission status: without remission Qualified Code(s): C92.00 - Acute myeloblastic leukemia, not having achieved remission - Discharge Information *PRESCRIPTION DRUG MONITORING PROGRAM REVIEWED*: No *COPY OF PRESCRIPTION DRUG MONITORING REPORT IN PATIENT ALIDA: No Forms: ED Department Discharge, Interfacility Transfer EMTALA Sepsis Event Note (ED) - Focused Exam Vital Signs: Vital Signs Temp Pulse Resp BP Pulse Ox 03/24/20 18:34 97.8 F 76 18 165/73 H 98 03/24/20 16:23 97.7 F 70 18 165/72 H 98 03/24/20 11:58 99 F 77 18 143/58 H 95 - My Orders Last 24 Hours: My Active Orders 03/24/20 11:44 EKG Documentation Completion [RC] STAT Blood Culture x2 Reflex Set [OM.PC] Stat 03/24/20 11:58 CULTURE BLOOD [BC] Stat 03/24/20 12:05 CULTURE BLOOD [BC] Stat - Assessment/Plan Last 24 Hours: My Active Orders 03/24/20 11:44 EKG Documentation Completion [RC] STAT Blood Culture x2 Reflex Set [OM.PC] Stat 03/24/20 11:58 CULTURE BLOOD [BC] Stat 03/24/20 12:05 CULTURE BLOOD [BC] Stat
--- NOTE | 2020-03-24 12:26 | CR ---
EXAMINATION: Chest 1V Frontal SEX: Male AGE: 74 years CLINICAL HISTORY: 74-year-old male complaining of chest pain. Septation: *No new cardiopulmonary abnormality when compared directly to 17 Nov 2019 film. Chronic asymmetric large dependent pleural effusion (pleural reactive changes) right base. Several contiguous old healed rib fractures, posterolaterally, on the left. Cardiac silhouette prominent but no pulmonary vascular congestion, cephalization of flow or alveolar edema. No new lung mass, hilar lymphadenopathy or focal lobar infiltrate/atelectasis. No pneumothorax or pneumomediastinum.
--- NOTE | 2020-03-24 14:54 | CT ---
EXAMINATION: Chest w Cont SEX: Male AGE: 74 years CLINICAL HISTORY: 74-year-old hypertensive and diabetic male with heart disease, shortness of breath (decreased oxygen sats) and serum D dimer 1190 (chronic pleural effusions/thoracentesis). Rule out PE. Scan technique: Volume acquisition of data from the chest (bony thorax, lungs and mediastinum) obtained during intravenous administration 63 cc nonionic Isovue 370 contrast at 4.8 cc/s via injector while patient was lying supine on the Siemens multi slice CT scanner [place], [place] all data archived in the PACS system for storage, reformatting axial/sagittal/coronal planes and study. Interpretation: Abnormal. 1. Large dependent, bibasilar, subpulmonic pleural effusions (huge on right, filling half of the hemithorax). 2. Underlying lower lobe atelectasis, bilaterally. 3. Mild cardiomegaly. No pericardial effusion. No pulmonary vascular congestion, cephalization of flow or alveolar edema but... suspicious "groundglass" infiltrate right upper lobe (RUL). Covid infection? 4. No discrete parenchymal lung nodule or mass lesion. No new hilar or mediastinal lymphadenopathy. 5. Specifically, no sign of intraluminal filling defect or thrombus identified in the pulmonary artery circulation. 6. Atheromatous calcifications outlining normal caliber thoracic aorta IE no aneurysm or dissection. 7. Upper abdominal viscera unremarkable where visualized. No ascites. 8. Mild kyphosis and extensive hypertrophic spondylosis dorsal spine. No fracture or dislocation. CONCLUSION: Large PLEURAL EFFUSIONS. Bibasilar atelectasis. *RUL infiltrate which could reflect large ipsilateral effusion and edema however recommend Covid testing. 3
[2020-03-24 16:18] LABS: ANION GAP 10.4 mEq/L (7-13); CHLORIDE,CL 95 mmol/L (98-107); SODIUM,NA 128 mmol/L (136-145)
[2020-03-24] MEDS ORDERED: Insulin Regular, Human 100 Units/ML 3 ML Vial IV ONE (17:22)
[2020-03-24] MEDS ORDERED: Insulin Isophane NPH, Human 100 Units/ML 3 ML Vial SQ ONE (17:45)
[2020-03-24] MEDS ORDERED: Iopamidol 755 Mg/ML 100 ML Bottle IVPUSH ONE (17:52)
[2020-03-24] MEDS ORDERED: Insulin Lispro 100 Units/ML 3 ML Vial SUBCUT ONE (17:59)
[2020-03-24 18:36] VITALS: BP 165/73; PULSE 76
== END 2020-03-24 19:00 ==
LOC: DL.ED 11:35
DX: J90 Pleural effusion, not elsewhere classified (principal); C92.00 Acute myeloblastic leukemia, not having achieved remission; I25.10 Atherosclerotic heart disease of native coronary artery without angina pectoris; E78.00 Pure hypercholesterolemia, unspecified; I10 Essential (primary) hypertension; E11.9 Type 2 diabetes mellitus without complications; Z20.828 Contact with and (suspected) exposure to other viral communicable diseases; Z79.82 Long term (current) use of aspirin; Z79.4 Long term (current) use of insulin; Z79.899 Other long term (current) drug therapy; Z86.73 Personal history of transient ischemic attack (TIA), and cerebral infarction without residual deficits
CPT/HCPCS: 36415; 71045; 71260; 80053; 81001; 82962; 83605; 83880; 84484; 85025; 85379; 85610; 86140; 87040; 93005; 99285; J1815; Q9967; U0002; 99284

== ENCOUNTER 2020-07-25 09:31 | Emergency (ER) | payer MEDICARE, OTHER ==
[2020-07-25] MEDS ORDERED: Oxymetazoline 0.05% Nasal Spray 30 ML Bottle NAS ONE (09:36)
[2020-07-25 09:56] VITALS: BP 149/76; PULSE 94
[2020-07-25] MEDS ORDERED: Lidocaine 2% Viscous Solution 15 ML Cup PO ONE (10:48)
--- NOTE | 2020-07-25 10:54 | EDM.PDOC ---
<Tu Feng Shanika - Last Filed: 07/25/20 11:55> ED HPI GENERAL MEDICAL PROBLEM - General Chief Complaint: ENT Problem Stated Complaint: BLOODY NOSE SINCE LAST NIGHT Time Seen by Provider: 07/25/20 10:50 Source of Information: Reports: Patient History Limitations: Reports: No Limitations - History of Present Illness INITIAL COMMENTS - FREE TEXT/NARRATIVE: 74 y/o M c/o nose bleed since 8 pm last night. Pt has tried direct pressure and nasal packing to control nose bleed but has been unsuccessful. No hx of nose bleeds in the past. Was transfused a few months ago but pt does not know why he was transfused. Denies em, cp, db, difficulty swallowing, abd pn, nausea, fever, cough, chills, drugs, etoh. Onset: Other (8 pm last night) Duration: Hour(s): Location: Reports: Head Severity: Mild Improves with: Reports: None Worsens with: Reports: None Associated Symptoms: Reports: No Other Symptoms - Related Data Allergies Allergy/AdvReac Type Severity Reaction Status Date / Time No Known Allergies Allergy Verified 07/25/20 09:52 Home Meds: Home Meds Aspirin [Adult Low Dose Aspirin EC] 81 mg PO DAILY 12/29/15 [History] Insulin Aspart [NovoLOG] 7 units SUBCUT TIDMEALS 12/29/15 [History] Losartan Potassium 100 mg PO BID 12/29/15 [History] atenoloL [Atenolol] 100 mg PO BID 12/29/15 [History] cloNIDine [Catapres] 0.2 mg PO BID 11/17/19 [History] Acetaminophen 650 mg PO Q6HR PRN 02/05/20 [History] Anagrelide [Agrylin] 1 mg PO BID 02/05/20 [History] Betamethasone Dipropionate [Diprolene AF 0.05% Crm] 15 gm TP BID PRN 02/05/20 [History] Cetirizine [ZyrTEC] 10 mg PO DAILY PRN 02/05/20 [History] Famotidine 20 mg PO DAILY PRN 02/05/20 [History] Furosemide 40 mg PO DAILY 02/05/20 [History] Magnesium Oxide [Mag-Oxide Magnesium] 200 mg PO DAILY 02/05/20 [History] Ondansetron [Zofran] 4 mg PO Q12H PRN 02/05/20 [History] atorvaSTATin [Lipitor] 10 mg PO BEDTIME 02/05/20 [History] diphenhydrAMINE [Benadryl] 25 mg PO Q12H PRN 02/05/20 [History] Allopurinol [Zyloprim] 100 mg PO DAILY 06/17/20 [History] Ergocalciferol 2,000 units PO DAILY 06/17/20 [History] Insulin Glarg,Human.Rec.Analog [Lantus] 14 units SQ BEDTIME 06/17/20 [History] Potassium Chloride 20 meq PO BID 06/17/20 [History] Vit A/C/E AC/Znox/Cupric Oxide [Eye Vitamin-Minerals Tablet] 1 tab PO DAILY 06/17/20 [History] hydrALAZINE [Apresoline] 50 mg PO BID 06/17/20 [History] Past Medical History HEENT History: Reports: Hard of Hearing Other HEENT History: has bilat. hearing aides Cardiovascular History: Reports: CAD, High Cholesterol, Hypertension Respiratory History: Reports: Interstitial Lung Disease, Other (See Below) Other Respiratory History: "tube to right chest to drain fluid around my lungs" Gastrointestinal History: Reports: None Genitourinary History: Reports: Other (See Below) Other Genitourinary History: erectile dysfunction Musculoskeletal History: Reports: Neck Pain, Chronic Neurological History: Reports: CVA Psychiatric History: Reports: None Endocrine/Metabolic History: Reports: Diabetes, Type II Hematologic History: Reports: Idiopathic Thrombocytopenia Immunologic History: Reports: None Oncologic (Cancer) History: Reports: None Dermatologic History: Reports: Other (See Below) Other Dermatologic History: dry skin - Infectious Disease History Infectious Disease History: Reports: None - Past Surgical History Head Surgeries/Procedures: Reports: None HEENT Surgical History: Reports: None Cardiovascular Surgical History: Reports: None Respiratory Surgical History: Reports: Thoracentesis Male Surgical History: Reports: None Endocrine Surgical History: Reports: None Neurological Surgical History: Reports: None Musculoskeletal Surgical History: Reports: Other (See Below) Other Musculoskeletal Surgeries/Procedures:: back surgery in Dermatological Surgical History: Reports: None Social & Family History - Family History Family Medical History: No Pertinent Family History - Tobacco Use Tobacco Use Status *Q: Former Tobacco User Years of Tobacco use: 20 Used Tobacco, but Quit: Yes Month/Year Tobacco Last Used: 1999 - Caffeine Use Caffeine Use: Reports: None, Coffee - Recreational Drug Use Recreational Drug Use: No - Living Situation & Occupation Living situation: Reports: Single Occupation: Retired ED ROS ENT - Review of Systems Review Of Systems: Comprehensive ROS is negative, except as noted in HPI. ED EXAM, ENT - Physical Exam Exam: See Below Exam Limited By: No Limitations General Appearance: Alert, WD/WN, No Apparent Distress Eye Exam: Bilateral Eye: PERRL Ears: Normal External Exam, Normal Canal, Hearing Grossly Normal, Normal TMs Nose: Normal Mucousa, No Blood, Other (bleeding from the right nare. Unable to determine if the bleed is posterior or anterior ) Head: Atraumatic, Normocephalic Neck: Normal Inspection, Supple, Non-Tender, Full Range of Motion Respiratory/Chest: No Respiratory Distress, Lungs Clear, Normal Breath Sounds, No Accessory Muscle Use, Chest Non-Tender Cardiovascular: Normal Peripheral Pulses, Regular Rate, Rhythm, No Edema, No Gallop, No JVD, No Murmur, No Rub GI/Abdominal: Soft, Non-Tender (Male) Exam: Deferred Rectal (Males) Exam: Deferred Extremities: Normal Inspection, Normal Range of Motion, Non-Tender, No Pedal Edema, Normal Capillary Refill Neurological: Alert, Oriented, CN II-XII Intact, Normal Cognition, Normal Gait, Normal Reflexes, No Motor/Sensory Deficits Psychiatric: Normal Affect, Normal Mood Skin: Warm, Dry, Intact, Normal Color, No Rash Course - Re-Assessments/Exams Free Text/Narrative Re-Assessment/Exam: 07/25/20 11:35 Attempted to control bleeding with Afrin nasal spray. 40 min after Afrin administration patient still bleeding from R nare. Departure - Departure Time of Disposition: 11:56 Disposition: Home, Self-Care 01 Condition: Good Clinical Impression: Epistaxis - Discharge Information *PRESCRIPTION DRUG MONITORING PROGRAM REVIEWED*: Not Applicable *COPY OF PRESCRIPTION DRUG MONITORING REPORT IN PATIENT ALIDA: Not Applicable Instructions: Nosebleed, [id number] Forms: ED Department Discharge Additional Instructions: Discussed exam, labs and follow up with patient. Follow up with your primary care facility in 2 days to have the nasal packing removed. Also discuss with your primary care facility about the lab abnormalities we discussed. You should avoid using Tylenol or ibuprofen until you have followed up with your primary care facility. If you begin bleeding again before your doctor appointment in 2 days return to the emergency room or call your primary care facility. If any other symptoms or concerns develop call your primary care facility or return to the ER. Sepsis Event Note (ED) - Evaluation Sepsis Screening Result: No Definite Risk <Getachew Ellison - Last Filed: 07/25/20 12:05> ED ENT PROCEDURES - Epistaxis Procedure Indication: Epistaxis, Uncontrolled Recent anticoagulants/antiplatlets: No Uncontrolled HTN: No Recent septal/nasal surgery: No Site of bleeding: Right Nare Clearing of clots: Patient Blew Nose Topical Meds: Phenylephrine Ice pack to area: No Posterior packing: Long Inflatable Nasal Tampon Local anesthesia - Lidocaine (Xylocaine): 2% Plain Local Anesthetic Volume: 2cc Complications: No Course - Vital Signs Last Recorded V/S: Last Vital Signs Temp 36.3 C 07/25/20 09:53 Pulse 94 07/25/20 09:53 Resp 14 07/25/20 09:53 BP 149/76 H 07/25/20 09:53 Pulse Ox 94 L 07/25/20 09:53 - Orders/Labs/Meds Labs: Laboratory Tests 07/25/20 07/25/20 07/25/20 Range/Units 11:05 11:05 11:05 WBC 8.8 (5.0-10.0) 10^3/uL RBC 3.56 L (4.6-6.2) 10^6/uL Hgb 9.2 L (14.0-18.0) g/dL Hct 28.8 L (40.0-54.0) % MCV 80.9 (80-100) fL MCH 25.8 L (27.0-34.0) pg MCHC 31.9 L (33.0-35.0) g/dL Plt Count 332 D (150-450) 10^3/uL Add Manual Diff Yes Neutrophils % (Manual) 76 H (42-75) % Band Neutrophils % 3 % Lymphocytes % (Manual) 12 L (20-50) % Monocytes % (Manual) 7 (2-8) % Eosinophils % (Manual) 2 (1-3) % Hypochromasia 1+ slight Poikilocytosis 1+ slight Anisocytosis 1+ slight Target Cells 1+ slight PT 11.1 (9.0-12.0) SEC INR 1.2 (0.9-1.2) Sodium 128 L (136-145) mmol/L Potassium 5.4 H (3.5-5.1) mmol/L Chloride 94 L (98-107) mmol/L Carbon Dioxide 31 (21-32) mmol/L Anion Gap 8.4 (7-13) mEq/L BUN 48 H (7-18) mg/dL Creatinine 1.59 H (0.70-1.30) mg/dL Est Cr Clr Drug Dosing 37.28 mL/min Estimated GFR (MDRD) 43 BUN/Creatinine Ratio 30.2 (No establ ref range) Glucose 345 H (74-99) mg/dL Calcium 8.3 L (8.5-10.1) mg/dL Total Bilirubin 0.6 (0.2-1.0) mg/dL AST 94 H (15-37) U/L ALT 125 H (16-63) U/L Alkaline Phosphatase 337 H (46-116) U/L Total Protein 7.3 (6.4-8.2) g/dL Albumin 2.7 L (3.4-5.0) g/dL Globulin 4.6 Albumin/Globulin Ratio 0.59 Meds: Medications Discontinued Medications Generic Name Dose Route Start Last Admin Trade Name Freq PRN Reason Stop Dose Admin Lidocaine HCl 15 ml 07/25/20 10:48 07/25/20 10:58 Xylocaine 2% Viscous PO 07/25/20 10:49 15 ml ONETIME ONE Administration Oxymetazoline HCl 1 ml 07/25/20 09:36 07/25/20 09:51 Nasal Decongestant [place] ARASELI 07/25/20 09:37 1 ml ONETIME ONE Administration - Re-Assessments/Exams Free Text/Narrative Re-Assessment/Exam: 07/25/20 12:03 I have examined the patient. I have discussed findings and treatment plan with the PA student. I agree with the assessment and plan in the following students note. Sepsis Event Note (ED) - Focused Exam Vital Signs: Vital Signs Temp Pulse Resp BP Pulse Ox 07/25/20 09:53 36.3 C 94 14 149/76 H 94 L
[2020-07-25 11:31] LABS: ANION GAP 8.4 mEq/L (7-13)
== END 2020-07-25 12:13 | disposition home or self-care (01) ==
LOC: DL.ED 09:31
DX: R04.0 Epistaxis (principal); I10 Essential (primary) hypertension; E78.00 Pure hypercholesterolemia, unspecified; I25.10 Atherosclerotic heart disease of native coronary artery without angina pectoris; E11.9 Type 2 diabetes mellitus without complications; Z87.891 Personal history of nicotine dependence; Z79.82 Long term (current) use of aspirin; Z79.4 Long term (current) use of insulin; Z79.899 Other long term (current) drug therapy
CPT/HCPCS: 30901; 30903; 36415; 80053; 85025; 85610; 99282; 99283-25; A9270-GY

== ENCOUNTER 2020-10-22 13:09 | Inpatient (IN) | payer OTHER, MEDICARE ==
[2020-10-22 13:56] LABS: O2 DELIVERY DEVICE ROOM AIR; O2 SATURATION ARTERIAL 97 % (95-100); PCO2 ARTERIAL 31 mmHg (35-45); PO2 ARTERIAL 98 mmHg (70-100)
[2020-10-22 13:57] LABS: ALLEN TEST POSITIVE; BASE EXCESS ARTERIAL -8 mmol/L ((-2)-(+3)); BICARBONATE,ARTERIAL 16.6 mmol/L (22-26)
[2020-10-22 14:15] LABS: CORONAVIRUS COVID-19 NAA NEGATIVE (NEGATIVE)
[2020-10-22] MEDS ORDERED: 50% Dextrose in Water 50 ML Syringe IV PRN ×2 (14:20→15:54)
[2020-10-22] MEDS ORDERED: Insulin Regular, Human 100 Units/ML 3 ML Vial IV ONE ×2 (14:20→19:30)
[2020-10-22] MEDS ORDERED: Glucagon,Human Recombinant 1 MG Vial IM PRN ×2 (14:20→15:54)
[2020-10-22 14:24] LABS: ANION GAP 29.3 mEq/L (7-13); CHLORIDE,CL 83 mmol/L (98-107); SODIUM,NA 126 mmol/L (136-145)
--- NOTE | 2020-10-22 14:32 | CR ---
PROCEDURE INFORMATION: Exam: XR Chest Exam date and time: 10/22/2020 2:04 PM Age: 74 years old Clinical indication: Chest pain TECHNIQUE: Imaging protocol: XR of the chest. Views: 1 view. Total images: 1 COMPARISON: CR Chest 1V Frontal 11/17/2019 8:20 PM FINDINGS: Lungs: Unremarkable. No consolidation. Pleural spaces: Tiny right pleural effusion. Heart/Mediastinum: The mild cardiomegaly. Bones/joints: Old left rib deformities. IMPRESSION: Mild cardiomegaly with tiny right pleural effusion.
[2020-10-22] MEDS ORDERED: Sodium Chloride 0.9% 1,000 ML IV ONE (14:36)
--- NOTE | 2020-10-22 15:26 | EDM.PDOC ---
Scribed by Tracee Guevara 10/22/20 [id number] for Diana Reid NP ED HPI GENERAL MEDICAL PROBLEM - General Chief Complaint: Diabetic Complaint Stated Complaint: AMBULANCE Time Seen by Provider: 10/22/20 13:15 Source of Information: Reports: Patient, EMS, EMS Notes Reviewed, RN, RN Notes Reviewed History Limitations: Reports: Other (hard of hearinfg) - History of Present Illness INITIAL COMMENTS - FREE TEXT/NARRATIVE: Patient is a 74-year-old male who presents to the ER per [facility] with complaint of weakness and vomiting. Patient has history of diabetes mellitus with running high blood sugars. Home monitor showed over 600. Patient states he has been getting very weak. Past medical history includes Diabetes mellitus II, hemorrhagic stroke, myeloblastic leukemia. Patient states he is normally up and around by himself--does not use walker or cane. Admits to vomiting, weakness, decreased appetite, increased thirst and increased urinary output. Denies diarrhea, chest pains, shortness of breath, or pains in general. Onset: Gradual Duration: Getting Worse Location: Reports: Generalized Severity: Severe Improves with: Reports: None Worsens with: Reports: None Associated Symptoms: Reports: No Other Symptoms - Related Data Allergies Allergy/AdvReac Type Severity Reaction Status Date / Time No Known Allergies Allergy Verified 10/22/20 13:29 Home Meds: Home Meds Aspirin [Adult Low Dose Aspirin EC] 81 mg PO DAILY 12/29/15 [History] Insulin Aspart [NovoLOG] 3 units SUBCUT TIDMEALS 12/29/15 [History] atenoloL [Atenolol] 100 mg PO BID 12/29/15 [History] cloNIDine [Catapres] 0.2 mg PO BID 11/17/19 [History] Acetaminophen 650 mg PO Q6HR PRN 02/05/20 [History] Furosemide 40 mg PO DAILY 02/05/20 [History] Ondansetron [Zofran] 4 mg PO Q12H PRN 02/05/20 [History] atorvaSTATin [Lipitor] 10 mg PO BEDTIME 02/05/20 [History] Insulin Glarg,Human.Rec.Analog [Lantus] 14 units SQ BEDTIME 06/17/20 [History] allopurinoL [Zyloprim] 100 mg PO DAILY 06/17/20 [History] hydrALAZINE [Apresoline] 50 mg PO BID 06/17/20 [History] Anagrelide [Agrylin] 0.5 mg PO BID 10/22/20 [History] Cholecalciferol (Vitamin D3) [Vitamin D] 1,000 unit PO DAILY 10/22/20 [History] Ergocalciferol (Vitamin D2) [Vitamin D2] 2,000 units PO DAILY 10/22/20 [History] Folic Acid 1 mg PO DAILY 10/22/20 [History] Magnesium Oxide [Mag-Oxide Magnesium] 200 mg PO DAILY 10/22/20 [History] Multivitamin-Min/Iron/FA/Vit K [Multi-Day Plus Minerals Tablet] 1 tab PO BID 10/22/20 [History] Omeprazole 20 mg PO DAILY 10/22/20 [History] Potassium Chloride 20 meq PO BID 10/22/20 [History] Ruxolitinib Phosphate [Jakafi] 20 mg PO BID 10/22/20 [History] Sildenafil Citrate [Viagra] 100 mg PO ASDIRECTED PRN 10/22/20 [History] Past Medical History HEENT History: Reports: Hard of Hearing Other HEENT History: has bilat. hearing aides Cardiovascular History: Reports: CAD, Heart Failure, High Cholesterol, Hypertension Respiratory History: Reports: Interstitial Lung Disease, Other (See Below) Other Respiratory History: "tube to right chest to drain fluid around my lungs" Gastrointestinal History: Reports: None Genitourinary History: Reports: Other (See Below) Other Genitourinary History: erectile dysfunction Musculoskeletal History: Reports: Neck Pain, Chronic Neurological History: Reports: CVA Psychiatric History: Reports: None Endocrine/Metabolic History: Reports: Diabetes, Type II Hematologic History: Reports: Idiopathic Thrombocytopenia Immunologic History: Reports: None Oncologic (Cancer) History: Reports: None Dermatologic History: Reports: Other (See Below) Other Dermatologic History: dry skin - Infectious Disease History Infectious Disease History: Reports: None - Past Surgical History Head Surgeries/Procedures: Reports: None HEENT Surgical History: Reports: None Cardiovascular Surgical History: Reports: None Respiratory Surgical History: Reports: Thoracentesis Male Surgical History: Reports: None Endocrine Surgical History: Reports: None Neurological Surgical History: Reports: None Musculoskeletal Surgical History: Reports: Other (See Below) Other Musculoskeletal Surgeries/Procedures:: back surgery in 1970's Dermatological Surgical History: Reports: None Social & Family History - Family History Family Medical History: No Pertinent Family History - Caffeine Use Caffeine Use: Reports: None, Coffee - Living Situation & Occupation Living situation: Reports: Single Occupation: Retired ED ROS GENERAL - Review of Systems Review Of Systems: Comprehensive ROS is negative, except as noted in HPI. ED EXAM GENERAL NO PERIP PULSE - Physical Exam Exam: See Below Exam Limited By: Other (hard of hearing) General Appearance: No Apparent Distress, Other (thin and weak) Eye Exam: Bilateral Eye: EOMI, Normal Inspection, PERRL Ears: Other (hard of hearing) Nose: Normal Inspection, Normal Mucosa, No Blood Throat/Mouth: Normal Inspection, Normal Lips, Normal Teeth, Normal Gums, Normal Oropharynx, Normal Voice, No Airway Compromise Head: Atraumatic, Normocephalic Neck: Normal Inspection, Supple, Non-Tender, Full Range of Motion Cardiovascular: Normal Peripheral Pulses, Regular Rate, Rhythm, No Edema, No Gallop, No JVD, No Murmur, No Rub GI/Abdominal: Normal Bowel Sounds, Soft, Non-Tender, No Organomegaly, No Distention, No Abnormal Bruit, No Mass (Male) Exam: Deferred Rectal (Males) Exam: Deferred Back Exam: Normal Inspection, Full Range of Motion, NT Extremities: Other (very weak. Decreased range of motion.) Neurological: Alert, Oriented, CN II-XII Intact, Normal Cognition, Normal Gait, Normal Reflexes, No Motor/Sensory Deficits Psychiatric: Normal Affect, Normal Mood Lymphatic: No Adenopathy #1 Interpretation EKG Date: 10/22/20 Time: 13:39 Rhythm: Other (atrial flutter with predominant 2:1 AV block) Rate (Beats/Min): 140 [place]: Normal P-Wave: Present QRS: Normal ST-T: Normal QT: Normal Course - Vital Signs Last Recorded V/S: Last Vital Signs Temp 97.0 F 10/22/20 13:23 Pulse 144 H 10/22/20 13:23 Resp 20 10/22/20 13:23 BP 148/81 H 10/22/20 13:23 Pulse Ox 100 10/22/20 13:23 - Orders/Labs/Meds Orders: Active Orders 24 hr Category Date Time Status Blood Glucose Check, Bedside [] ONETIME Care 10/22/20 13:19 Active EKG Documentation Completion [RC] STAT Care 10/22/20 13:26 Active CULTURE BLOOD [BC] Stat Lab 10/22/20 13:49 Received CULTURE BLOOD [BC] Stat Lab 10/22/20 13:52 Results REFLEX LACTIC ACID YES OR NO [CHEM] Routine Lab 10/22/20 14:44 Received Dextrose 50% in Water Med 10/22/20 14:20 Active 50 ml IV Q15M PRN Glucagon,Human Recombinant [GlucaGen] Med 10/22/20 14:20 Active 1 mg IM Q15M PRN Sodium Chloride 0.9% [Normal Saline] 1,000 ml Med 10/22/20 14:36 Active IV .BOLUS Blood Culture x2 Reflex Set [OM.PC] Stat Oth 10/22/20 13:26 Ordered Medication Orders Dextrose/Water (50% Dextrose In Water 50 Ml Syringe) 50 ml IV Q15M PRN PRN Reason: Hypoglycemia Glucagon (Glucagon,Human Recombinant 1 Mg Vial) 1 mg IM Q15M PRN PRN Reason: Hypoglycemia Sodium Chloride (Normal Saline) 1,000 mls @ 999 mls/hr IV .BOLUS ONE Stop: 10/22/20 15:36 Last Admin: 10/22/20 14:37 Dose: 999 mls/hr Documented by: ANGELLA Labs: Laboratory Tests 10/22/20 10/22/20 10/22/20 Range/Units 13:19 13:30 13:32 WBC (5.0-10.0) 10^3/uL Corrected WBC RBC (4.6-6.2) 10^6/uL Hgb (14.0-18.0) g/dL Hct (40.0-54.0) % MCV (80-100) fL MCH (27.0-34.0) pg MCHC (33.0-35.0) g/dL Plt Count (150-450) 10^3/uL Neut % (Auto) (42.2-75.2) % Lymph % (Auto) (20.5-50.1) % [place] % (Auto) (2-8) % Eos % (Auto) (1.0-3.0) % Baso % (Auto) (0.0-1.0) % Add Manual Diff Neutrophils % (Manual) (42-75) % Band Neutrophils % % Lymphocytes % (Manual) (20-50) % Monocytes % (Manual) (2-8) % Nucleated RBCs /100WBC PT (9.0-12.0) SEC INR (0.9-1.2) ABG pH (7.35-7.45) ABG pCO2 (35-45) mmHg ABG pO2 (70-100) mmHg ABG HCO3 (22-26) mmol/L ABG O2 Saturation (95-100) % ABG Base Excess ((-2)-(+3)) mmol/L Sid Test O2 Delivery Device Sodium (136-145) mmol/L Potassium (3.5-5.1) mmol/L Chloride (98-107) mmol/L Carbon Dioxide (21-32) mmol/L Anion Gap (7-13) mEq/L BUN (7-18) mg/dL Creatinine (0.70-1.30) mg/dL Est Cr Clr Drug Dosing mL/min Estimated GFR (MDRD) BUN/Creatinine Ratio (No establ ref range) Glucose (70-99) mg/dL POC Glucose > 600 H* (70-99) mg/dL Lactic Acid (0.4-2.0) mmol/L Calcium (8.5-10.1) mg/dL Magnesium (1.8-2.4) mg/dL Total Bilirubin (0.2-1.0) mg/dL AST (15-37) U/L ALT (16-63) U/L Alkaline Phosphatase (46-116) U/L Troponin I (0.000-0.056) ng/mL B-Natriuretic Peptide (0-100) pg/ml Total Protein (6.4-8.2) g/dL Albumin (3.4-5.0) g/dL Globulin Albumin/Globulin Ratio Urine Color Yellow (YELLOW) Urine Appearance Slightly cloudy (CLEAR) Urine pH 5.0 (5.0-9.0) Ur Specific [place] 1.015 (1.005-1.030) Urine Protein Trace H (NEGATIVE) Urine Glucose (UA) 500 H (NEGATIVE) Urine Ketones Trace H (NEGATIVE) Urine Occult Blood Trace-intact H (NEGATIVE) Urine Nitrite Negative (NEGATIVE) Urine Bilirubin Negative (NEGATIVE) Urine Urobilinogen 0.2 (0.2-1.0) mg/dL Ur Leukocyte Esterase Negative (NEGATIVE) Urine RBC 0-5 /HPF Urine WBC 0-5 (0-5/HPF) /HPF Ur Epithelial Cells Rare (NOT SEEN) /HPF Amorphous Sediment Few (NOT SEEN) /HPF Urine Bacteria Rare (0-FEW/HPF) /HPF Urine Mucus Rare (NOT SEEN) /LPF Ketones Influenza Type A RNA Negative (NEGATIVE) Influenza Type B RNA Negative (NEGATIVE) SARS-CoV-2 RNA ([place]) Negative (NEGATIVE) 10/22/20 10/22/20 10/22/20 Range/Units 13:46 13:49 13:49 WBC 4.4 L (5.0-10.0) 10^3/uL Corrected WBC 4.0 RBC 3.13 L (4.6-6.2) 10^6/uL Hgb 8.8 L (14.0-18.0) g/dL Hct 28.0 L (40.0-54.0) % MCV 89.5 D (80-100) fL MCH 28.1 (27.0-34.0) pg MCHC 31.4 L (33.0-35.0) g/dL Plt Count 402 (150-450) 10^3/uL Neut % (Auto) 36.2 L (42.2-75.2) % Lymph % (Auto) 47.1 (20.5-50.1) % [place] % (Auto) 14.2 H (2-8) % Eos % (Auto) 0.9 L (1.0-3.0) % Baso % (Auto) 1.6 H (0.0-1.0) % Add Manual Diff Yes Neutrophils % (Manual) 34 L (42-75) % Band Neutrophils % 10 % Lymphocytes % (Manual) 45 (20-50) % Monocytes % (Manual) 11 H (2-8) % Nucleated RBCs 5 /100WBC PT (9.0-12.0) SEC INR (0.9-1.2) ABG pH 7.36 (7.35-7.45) ABG pCO2 31 L (35-45) mmHg ABG pO2 98 (70-100) mmHg ABG HCO3 16.6 L (22-26) mmol/L ABG O2 Saturation 97 (95-100) % ABG Base Excess -8 L ((-2)-(+3)) mmol/L Sid Test Positive O2 Delivery Device Room air Sodium 126 L (136-145) mmol/L Potassium 5.3 H (3.5-5.1) mmol/L Chloride 83 L (98-107) mmol/L Carbon Dioxide 19 L D (21-32) mmol/L Anion Gap 29.3 H (7-13) mEq/L BUN 69 H (7-18) mg/dL Creatinine 2.79 H D (0.70-1.30) mg/dL Est Cr Clr Drug Dosing 21.53 mL/min Estimated GFR (MDRD) 22 BUN/Creatinine Ratio 24.7 (No establ ref range) Glucose 877 H* (70-99) mg/dL POC Glucose (70-99) mg/dL Lactic Acid (0.4-2.0) mmol/L Calcium 9.3 (8.5-10.1) mg/dL Magnesium 2.7 H (1.8-2.4) mg/dL Total Bilirubin 2.0 H (0.2-1.0) mg/dL AST 247 H (15-37) U/L ALT 450 H (16-63) U/L Alkaline Phosphatase 276 H (46-116) U/L Troponin I 0.045 (0.000-0.056) ng/mL B-Natriuretic Peptide (0-100) pg/ml Total Protein 8.4 H (6.4-8.2) g/dL Albumin 3.1 L (3.4-5.0) g/dL Globulin 5.3 Albumin/Globulin Ratio 0.58 Urine Color (YELLOW) Urine Appearance (CLEAR) Urine pH (5.0-9.0) Ur Specific [place] (1.005-1.030) Urine Protein (NEGATIVE) Urine Glucose (UA) (NEGATIVE) Urine Ketones (NEGATIVE) Urine Occult Blood (NEGATIVE) Urine Nitrite (NEGATIVE) Urine Bilirubin (NEGATIVE) Urine Urobilinogen (0.2-1.0) mg/dL Ur Leukocyte Esterase (NEGATIVE) Urine RBC /HPF Urine WBC (0-5/HPF) /HPF Ur Epithelial Cells (NOT SEEN) /HPF Amorphous Sediment (NOT SEEN) /HPF Urine Bacteria (0-FEW/HPF) /HPF Urine Mucus (NOT SEEN) /LPF Ketones Large-80 mg/dl Influenza Type A RNA (NEGATIVE) Influenza Type B RNA (NEGATIVE) SARS-CoV-2 RNA ([place]) (NEGATIVE) 10/22/20 10/22/20 10/22/20 Range/Units 13:49 13:49 13:49 WBC (5.0-10.0) 10^3/uL Corrected WBC RBC (4.6-6.2) 10^6/uL Hgb (14.0-18.0) g/dL Hct (40.0-54.0) % MCV (80-100) fL MCH (27.0-34.0) pg MCHC (33.0-35.0) g/dL Plt Count (150-450) 10^3/uL Neut % (Auto) (42.2-75.2) % Lymph % (Auto) (20.5-50.1) % [place] % (Auto) (2-8) % Eos % (Auto) (1.0-3.0) % Baso % (Auto) (0.0-1.0) % Add Manual Diff Neutrophils % (Manual) (42-75) % Band Neutrophils % % Lymphocytes % (Manual) (20-50) % Monocytes % (Manual) (2-8) % Nucleated RBCs /100WBC PT 17.4 H D (9.0-12.0) SEC INR 1.7 H (0.9-1.2) ABG pH (7.35-7.45) ABG pCO2 (35-45) mmHg ABG pO2 (70-100) mmHg ABG HCO3 (22-26) mmol/L ABG O2 Saturation (95-100) % ABG Base Excess ((-2)-(+3)) mmol/L Sid Test O2 Delivery Device Sodium (136-145) mmol/L Potassium (3.5-5.1) mmol/L Chloride (98-107) mmol/L Carbon Dioxide (21-32) mmol/L Anion Gap (7-13) mEq/L BUN (7-18) mg/dL Creatinine (0.70-1.30) mg/dL Est Cr Clr Drug Dosing mL/min Estimated GFR (MDRD) BUN/Creatinine Ratio (No establ ref range) Glucose (70-99) mg/dL POC Glucose (70-99) mg/dL Lactic Acid 9.4 H* (0.4-2.0) mmol/L Calcium (8.5-10.1) mg/dL Magnesium (1.8-2.4) mg/dL Total Bilirubin (0.2-1.0) mg/dL AST (15-37) U/L ALT (16-63) U/L Alkaline Phosphatase (46-116) U/L Troponin I (0.000-0.056) ng/mL B-Natriuretic Peptide 1320 H (0-100) pg/ml Total Protein (6.4-8.2) g/dL Albumin (3.4-5.0) g/dL Globulin Albumin/Globulin Ratio Urine Color (YELLOW) Urine Appearance (CLEAR) Urine pH (5.0-9.0) Ur Specific [place] (1.005-1.030) Urine Protein (NEGATIVE) Urine Glucose (UA) (NEGATIVE) Urine Ketones (NEGATIVE) Urine Occult Blood (NEGATIVE) Urine Nitrite (NEGATIVE) Urine Bilirubin (NEGATIVE) Urine Urobilinogen (0.2-1.0) mg/dL Ur Leukocyte Esterase (NEGATIVE) Urine RBC /HPF Urine WBC (0-5/HPF) /HPF Ur Epithelial Cells (NOT SEEN) /HPF Amorphous Sediment (NOT SEEN) /HPF Urine Bacteria (0-FEW/HPF) /HPF Urine Mucus (NOT SEEN) /LPF Ketones Influenza Type A RNA (NEGATIVE) Influenza Type B RNA (NEGATIVE) SARS-CoV-2 RNA ([place]) (NEGATIVE) Meds: Medications Generic Name Dose Route Start Last Admin Trade Name Freq PRN Reason Stop Dose Admin Dextrose/Water 50 ml 10/22/20 14:20 50% Dextrose In Water 50 Ml Syringe IV Q15M PRN Hypoglycemia Glucagon 1 mg 10/22/20 14:20 Glucagon,Human Recombinant 1 Mg Vial IM Q15M PRN Hypoglycemia Sodium Chloride 1,000 mls @ 999 mls/hr 10/22/20 14:36 10/22/20 14:37 Normal Saline IV 10/22/20 15:36 999 mls/hr .BOLUS ONE Administration Discontinued Medications Generic Name Dose Route Start Last Admin Trade Name Freq PRN Reason Stop Dose Admin Insulin Human Regular 15 unit 10/22/20 14:20 10/22/20 14:26 Insulin Regular, Human 100 Units/Ml 3 Ml Vial IV 10/22/20 14:21 15 units ONETIME ONE Administration - Radiology Interpretation Free Text/Narrative:: Chest xray: PROCEDURE INFORMATION: Exam: XR Chest Exam date and time: 10/22/2020 2:04 PM Age: 74 years old Clinical indication: Chest pain TECHNIQUE: Imaging protocol: XR of the chest. Views: 1 view. Total images: 1 COMPARISON: CR Chest 1V Frontal 11/17/2019 8:20 PM FINDINGS: Lungs: Unremarkable. No consolidation. Pleural spaces: Tiny right pleural effusion. Heart/Mediastinum: The mild cardiomegaly. Bones/joints: Old left rib deformities. IMPRESSION: Mild cardiomegaly with tiny right pleural effusion. Thank you for allowing us to participate in the care of your patient. Dictated and Authenticated by: Dorian Paniagua MD 10/22/2020 2:31 PM Central Time ([place] & [place]) See rad report - Re-Assessments/Exams Free Text/Narrative Re-Assessment/Exam: 10/22/20 15:24 Discussed patient case with Dr. Horner who agreed to accept the patient for acute inpatient admission for diabetic ketoacidosis. Departure - Departure Time of Disposition: 15:25 Disposition: Admitted As Inpatient 64 Condition: Poor Clinical Impression: Diabetic ketoacidosis Qualifiers: Diabetes mellitus type: type 2 Diabetes mellitus complication detail: without coma Qualified Code(s): E11.10 - Type 2 diabetes mellitus with ketoacidosis without coma - Discharge Information *PRESCRIPTION DRUG MONITORING PROGRAM REVIEWED*: No *COPY OF PRESCRIPTION DRUG MONITORING REPORT IN PATIENT ALIDA: No Sepsis Event Note (ED) - Focused Exam Vital Signs: Vital Signs Temp Pulse Resp BP Pulse Ox 10/22/20 13:23 97.0 F 144 H 20 148/81 H 100 - My Orders Last 24 Hours: My Active Orders 10/22/20 13:19 Blood Glucose Check, Bedside [RC] ONETIME 10/22/20 13:26 EKG Documentation Completion [RC] STAT Blood Culture x2 Reflex Set [OM.PC] Stat 10/22/20 13:49 CULTURE BLOOD [BC] Stat 10/22/20 13:52 CULTURE BLOOD [BC] Stat 10/22/20 14:20 Dextrose 50% in Water 50 ml IV Q15M PRN Glucagon,Human Recombinant [GlucaGen] 1 mg IM Q15M PRN 10/22/20 14:36 Sodium Chloride 0.9% [Normal Saline] 1,000 ml IV .BOLUS 10/22/20 14:44 REFLEX LACTIC ACID YES OR NO [CHEM] Routine - Assessment/Plan Last 24 Hours: My Active Orders 10/22/20 13:19 Blood Glucose Check, Bedside [RC] ONETIME 10/22/20 13:26 EKG Documentation Completion [RC] STAT Blood Culture x2 Reflex Set [OM.PC] Stat 10/22/20 13:49 CULTURE BLOOD [BC] Stat 10/22/20 13:52 CULTURE BLOOD [BC] Stat 10/22/20 14:20 Dextrose 50% in Water 50 ml IV Q15M PRN Glucagon,Human Recombinant [GlucaGen] 1 mg IM Q15M PRN 10/22/20 14:36 Sodium Chloride 0.9% [Normal Saline] 1,000 ml IV .BOLUS 10/22/20 14:44 REFLEX LACTIC ACID YES OR NO [CHEM] Routine I have read and agree with the documentation that has been completed regarding this visit. By signing this record, I attest that the documentation was completed in my physical presence and is an accurate record of the encounter.
[2020-10-22] MEDS ORDERED: Acetaminophen 325 MG Tab PO PRN ×2 (15:46→15:54)
[2020-10-22] MEDS ORDERED: Ondansetron 4 MG/2 ML SDV IVPUSH PRN (15:46)
[2020-10-22] MEDS ORDERED: Albuterol 0.083% 2.5 MG/3 ML Neb Soln NEB ONE (16:00)
[2020-10-22] MEDS ORDERED: Lactated Ringers 1,000 ML IV SCH (16:00)
--- NOTE | 2020-10-22 17:03 | PCM.HP ---
H&P History of Present Illness - General Date of Service: 10/22/20 Admit Problem/Dx: Admission Diagnosis/Problem Admission Diagnosis/Problem Diabetic ketoacidosis - History of Present Illness Initial Comments - Free Text/Narative: Ramón is a 74-year-old man who presented to the ER today with severe fatigue and mild confusion. His family reports that he was acting kind of strangely this morning, and he told him that he felt very poorly. The ambulance was called, and they found him to have a blood sugar that read "high" on their monitor, meaning it was over 400. Upon arrival to the ED, he was found to have a blood sugar of 650. Ramón is very hard of hearing, but does not report any significant symptoms other than his fatigue. His only reports has been trying to drink plenty of fluids recently, has not complained of them of any kind of adverse symptoms, no shortness of breath, no difficulty with urination or pain with urination. Ramón does have a significant past history of prostate issues and urinary problems. Ramón also has a recent history of myeloproliferative disorder, and according to his family has had to have multiple transfusions recently due to a hemoglobin that will not stay above 8 or 9. - Related Data Allergies/Adverse Reactions: Allergies Allergy/AdvReac Type Severity Reaction Status Date / Time No Known Allergies Allergy Verified 10/22/20 15:59 Home Medications: Home Meds Aspirin [Adult Low Dose Aspirin EC] 81 mg PO DAILY 12/29/15 [History] Insulin Aspart [NovoLOG] 3 units SUBCUT TIDMEALS 12/29/15 [History] atenoloL [Atenolol] 100 mg PO BID 12/29/15 [History] cloNIDine [Catapres] 0.2 mg PO BID 11/17/19 [History] Acetaminophen 650 mg PO Q6HR PRN 02/05/20 [History] Furosemide 40 mg PO DAILY 02/05/20 [History] Ondansetron [Zofran] 4 mg PO Q12H PRN 02/05/20 [History] atorvaSTATin [Lipitor] 10 mg PO BEDTIME 02/05/20 [History] Insulin Glarg,Human.Rec.Analog [Lantus] 14 units SQ BEDTIME 06/17/20 [History] allopurinoL [Zyloprim] 100 mg PO DAILY 06/17/20 [History] hydrALAZINE [Apresoline] 50 mg PO BID 06/17/20 [History] Anagrelide [Agrylin] 1 mg PO BID 10/22/20 [History] Cholecalciferol (Vitamin D3) [Vitamin D] 1,000 unit PO DAILY 10/22/20 [History] Ergocalciferol (Vitamin D2) [Vitamin D2] 2,000 units PO DAILY 10/22/20 [History] Folic Acid 1 mg PO DAILY 10/22/20 [History] Magnesium Oxide [Mag-Oxide Magnesium] 400 mg PO DAILY 10/22/20 [History] Multivitamin-Min/Iron/FA/Vit K [Multi-Day Plus Minerals Tablet] 1 tab PO BID 10/22/20 [History] Omeprazole 20 mg PO DAILY 10/22/20 [History] Potassium Chloride 20 meq PO BID 10/22/20 [History] Ruxolitinib Phosphate [Jakafi] 20 mg PO BID 10/22/20 [History] Sildenafil Citrate [Viagra] 100 mg PO ASDIRECTED PRN 10/22/20 [History] Past Medical History HEENT History: Reports: Hard of Hearing Other HEENT History: has bilat. hearing aides Cardiovascular History: Reports: CAD, Heart Failure, High Cholesterol, Hypertension Respiratory History: Reports: Interstitial Lung Disease, Other (See Below) Other Respiratory History: "tube to right chest to drain fluid around my lungs" - Chronic pleural effusion Gastrointestinal History: Reports: GERD Genitourinary History: Reports: BPH, Diabetic Nephropathy, Other (See Below) Other Genitourinary History: erectile dysfunction Musculoskeletal History: Reports: Neck Pain, Chronic Neurological History: Reports: CVA Psychiatric History: Reports: None Endocrine/Metabolic History: Reports: Diabetes, Type II Hematologic History: Reports: Other (See Below) Other Hematologic History: Essential Thrombocytosis, myeloproliferative disorder Immunologic History: Reports: None Oncologic (Cancer) History: Reports: None Dermatologic History: Reports: Other (See Below) Other Dermatologic History: dry skin - Infectious Disease History Infectious Disease History: Reports: None - Past Surgical History Head Surgeries/Procedures: Reports: None HEENT Surgical History: Reports: None Cardiovascular Surgical History: Reports: None Respiratory Surgical History: Reports: Thoracentesis Male Surgical History: Reports: None Endocrine Surgical History: Reports: None Neurological Surgical History: Reports: None Musculoskeletal Surgical History: Reports: Other (See Below) Other Musculoskeletal Surgeries/Procedures:: back surgery in Dermatological Surgical History: Reports: None Social & Family History - Family History Family Medical History: No Pertinent Family History - Tobacco Use Tobacco Use Status *Q: Current Every Day Tobacco User Years of Tobacco use: 30 Packs/Tins Daily: 0.2 Used Tobacco, but Quit: No - Caffeine Use Caffeine Use: Reports: Coffee - Recreational Drug Use Recreational Drug Use: No - Living Situation & Occupation Living situation: Reports: Single Occupation: Retired H&P Review of Systems - Review of Systems: Review Of Systems: See Below Review of Systems Comment:: General: No recent weight gain or weight loss, no fevers or chills HEENT: No headache or vertigo, no difficulty with speaking or swallowing Cardiovascular: No chest pain or palpitations, no orthopnea or PND Respiratory: No chronic cough, no dyspnea or dyspnea on exertion Gastrointestinal: See HPI; Ramnó reports he has had little to no appetite today Endocrine: No abnormal rashing or bruising, no intolerance to heat or cold Integumentary: No lesions or rashes Musculoskeletal: No myalgias or arthralgias Psychological: No increased anxiety or depressive type symptoms Rest of the review of systems is complete and negative Exam - Exam Exam: See Below - Vital Signs Vital Signs: Last Vital Signs Temp 97.0 F 10/22/20 13:23 Pulse 144 H 10/22/20 13:23 Resp 20 10/22/20 13:23 BP 148/81 H 10/22/20 13:23 Pulse Ox 100 10/22/20 13:23 Weight: 149 lb - Exam Physical Exam Comments:: General: Ramón is a 74-year-old man in no acute distress. He is very hard of hearing and does not have any hearing aids with him at this time Head is normocephalic, atraumatic Eyes: No scleral icterus, conjunctiva are quite pale Oropharynx is clear, mucous membranes are tacky to dry Neck: Supple, no lymphadenopathy, no elevated JVD is noted Heart: Regular rate and rhythm, 1 out of 6 systolic murmur heard throughout Lungs: He does have distant breath sounds in both bases, no expiratory wheezing heard Abdomen is soft, nontender to palpation, normal bowel sounds heard throughout no organomegaly is detected Cranial nerves II through XII are intact throughout, toes are downward going - Patient Data Lab Results Last 24 hrs: Laboratory Results - last 24 hr 10/22/20 10/22/20 10/22/20 Range/Units 13:19 13:30 13:32 WBC (5.0-10.0) 10^3/uL Corrected WBC RBC (4.6-6.2) 10^6/uL Hgb (14.0-18.0) g/dL Hct (40.0-54.0) % MCV (80-100) fL MCH (27.0-34.0) pg MCHC (33.0-35.0) g/dL Plt Count (150-450) 10^3/uL Neut % (Auto) (42.2-75.2) % Lymph % (Auto) (20.5-50.1) % [place] % (Auto) (2-8) % Eos % (Auto) (1.0-3.0) % Baso % (Auto) (0.0-1.0) % Add Manual Diff Neutrophils % (Manual) (42-75) % Band Neutrophils % % Lymphocytes % (Manual) (20-50) % Monocytes % (Manual) (2-8) % Nucleated RBCs /100WBC PT (9.0-12.0) SEC INR (0.9-1.2) ABG pH (7.35-7.45) ABG pCO2 (35-45) mmHg ABG pO2 (70-100) mmHg ABG HCO3 (22-26) mmol/L ABG O2 Saturation (95-100) % ABG Base Excess ((-2)-(+3)) mmol/L Sid Test O2 Delivery Device Sodium (136-145) mmol/L Potassium (3.5-5.1) mmol/L Chloride (98-107) mmol/L Carbon Dioxide (21-32) mmol/L Anion Gap (7-13) mEq/L BUN (7-18) mg/dL Creatinine (0.70-1.30) mg/dL Est Cr Clr Drug Dosing mL/min Estimated GFR (MDRD) BUN/Creatinine Ratio (No establ ref range) Glucose (70-99) mg/dL POC Glucose > 600 H* (70-99) mg/dL Lactic Acid (0.4-2.0) mmol/L Calcium (8.5-10.1) mg/dL Magnesium (1.8-2.4) mg/dL Total Bilirubin (0.2-1.0) mg/dL AST (15-37) U/L ALT (16-63) U/L Alkaline Phosphatase (46-116) U/L Troponin I (0.000-0.056) ng/mL B-Natriuretic Peptide (0-100) pg/ml Total Protein (6.4-8.2) g/dL Albumin (3.4-5.0) g/dL Globulin Albumin/Globulin Ratio Urine Color Yellow (YELLOW) Urine Appearance Slightly cloudy (CLEAR) Urine pH 5.0 (5.0-9.0) Ur Specific [place] 1.015 (1.005-1.030) Urine Protein Trace H (NEGATIVE) Urine Glucose (UA) 500 H (NEGATIVE) Urine Ketones Trace H (NEGATIVE) Urine Occult Blood Trace-intact H (NEGATIVE) Urine Nitrite Negative (NEGATIVE) Urine Bilirubin Negative (NEGATIVE) Urine Urobilinogen 0.2 (0.2-1.0) mg/dL Ur Leukocyte Esterase Negative (NEGATIVE) Urine RBC 0-5 /HPF Urine WBC 0-5 (0-5/HPF) /HPF Ur Epithelial Cells Rare (NOT SEEN) /HPF Amorphous Sediment Few (NOT SEEN) /HPF Urine Bacteria Rare (0-FEW/HPF) /HPF Urine Mucus Rare (NOT SEEN) /LPF Ketones Influenza Type A RNA Negative (NEGATIVE) Influenza Type B RNA Negative (NEGATIVE) SARS-CoV-2 RNA ([place]) Negative (NEGATIVE) 10/22/20 10/22/20 10/22/20 Range/Units 13:46 13:49 13:49 WBC 4.4 L (5.0-10.0) 10^3/uL Corrected WBC 4.0 RBC 3.13 L (4.6-6.2) 10^6/uL Hgb 8.8 L (14.0-18.0) g/dL Hct 28.0 L (40.0-54.0) % MCV 89.5 D (80-100) fL MCH 28.1 (27.0-34.0) pg MCHC 31.4 L (33.0-35.0) g/dL Plt Count 402 (150-450) 10^3/uL Neut % (Auto) 36.2 L (42.2-75.2) % Lymph % (Auto) 47.1 (20.5-50.1) % [place] % (Auto) 14.2 H (2-8) % Eos % (Auto) 0.9 L (1.0-3.0) % Baso % (Auto) 1.6 H (0.0-1.0) % Add Manual Diff Yes Neutrophils % (Manual) 34 L (42-75) % Band Neutrophils % 10 % Lymphocytes % (Manual) 45 (20-50) % Monocytes % (Manual) 11 H (2-8) % Nucleated RBCs 5 /100WBC PT (9.0-12.0) SEC INR (0.9-1.2) ABG pH 7.36 (7.35-7.45) ABG pCO2 31 L (35-45) mmHg ABG pO2 98 (70-100) mmHg ABG HCO3 16.6 L (22-26) mmol/L ABG O2 Saturation 97 (95-100) % ABG Base Excess -8 L ((-2)-(+3)) mmol/L Sid Test Positive O2 Delivery Device Room air Sodium 126 L (136-145) mmol/L Potassium 5.3 H (3.5-5.1) mmol/L Chloride 83 L (98-107) mmol/L Carbon Dioxide 19 L D (21-32) mmol/L Anion Gap 29.3 H (7-13) mEq/L BUN 69 H (7-18) mg/dL Creatinine 2.79 H D (0.70-1.30) mg/dL Est Cr Clr Drug Dosing 21.53 mL/min Estimated GFR (MDRD) 22 BUN/Creatinine Ratio 24.7 (No establ ref range) Glucose 877 H* (70-99) mg/dL POC Glucose (70-99) mg/dL Lactic Acid (0.4-2.0) mmol/L Calcium 9.3 (8.5-10.1) mg/dL Magnesium 2.7 H (1.8-2.4) mg/dL Total Bilirubin 2.0 H (0.2-1.0) mg/dL AST 247 H (15-37) U/L ALT 450 H (16-63) U/L Alkaline Phosphatase 276 H (46-116) U/L Troponin I 0.045 (0.000-0.056) ng/mL B-Natriuretic Peptide (0-100) pg/ml Total Protein 8.4 H (6.4-8.2) g/dL Albumin 3.1 L (3.4-5.0) g/dL Globulin 5.3 Albumin/Globulin Ratio 0.58 Urine Color (YELLOW) Urine Appearance (CLEAR) Urine pH (5.0-9.0) Ur Specific [place] (1.005-1.030) Urine Protein (NEGATIVE) Urine Glucose (UA) (NEGATIVE) Urine Ketones (NEGATIVE) Urine Occult Blood (NEGATIVE) Urine Nitrite (NEGATIVE) Urine Bilirubin (NEGATIVE) Urine Urobilinogen (0.2-1.0) mg/dL Ur Leukocyte Esterase (NEGATIVE) Urine RBC /HPF Urine WBC (0-5/HPF) /HPF Ur Epithelial Cells (NOT SEEN) /HPF Amorphous Sediment (NOT SEEN) /HPF Urine Bacteria (0-FEW/HPF) /HPF Urine Mucus (NOT SEEN) /LPF Ketones Large-80 mg/dl Influenza Type A RNA (NEGATIVE) Influenza Type B RNA (NEGATIVE) SARS-CoV-2 RNA ([place]) (NEGATIVE) 10/22/20 10/22/20 10/22/20 Range/Units 13:49 13:49 13:49 WBC (5.0-10.0) 10^3/uL Corrected WBC RBC (4.6-6.2) 10^6/uL Hgb (14.0-18.0) g/dL Hct (40.0-54.0) % MCV (80-100) fL MCH (27.0-34.0) pg MCHC (33.0-35.0) g/dL Plt Count (150-450) 10^3/uL Neut % (Auto) (42.2-75.2) % Lymph % (Auto) (20.5-50.1) % [place] % (Auto) (2-8) % Eos % (Auto) (1.0-3.0) % Baso % (Auto) (0.0-1.0) % Add Manual Diff Neutrophils % (Manual) (42-75) % Band Neutrophils % % Lymphocytes % (Manual) (20-50) % Monocytes % (Manual) (2-8) % Nucleated RBCs /100WBC PT 17.4 H D (9.0-12.0) SEC INR 1.7 H (0.9-1.2) ABG pH (7.35-7.45) ABG pCO2 (35-45) mmHg ABG pO2 (70-100) mmHg ABG HCO3 (22-26) mmol/L ABG O2 Saturation (95-100) % ABG Base Excess ((-2)-(+3)) mmol/L Sid Test O2 Delivery Device Sodium (136-145) mmol/L Potassium (3.5-5.1) mmol/L Chloride (98-107) mmol/L Carbon Dioxide (21-32) mmol/L Anion Gap (7-13) mEq/L BUN (7-18) mg/dL Creatinine (0.70-1.30) mg/dL Est Cr Clr Drug Dosing mL/min Estimated GFR (MDRD) BUN/Creatinine Ratio (No establ ref range) Glucose (70-99) mg/dL POC Glucose (70-99) mg/dL Lactic Acid 9.4 H* (0.4-2.0) mmol/L Calcium (8.5-10.1) mg/dL Magnesium (1.8-2.4) mg/dL Total Bilirubin (0.2-1.0) mg/dL AST (15-37) U/L ALT (16-63) U/L Alkaline Phosphatase (46-116) U/L Troponin I (0.000-0.056) ng/mL B-Natriuretic Peptide 1320 H (0-100) pg/ml Total Protein (6.4-8.2) g/dL Albumin (3.4-5.0) g/dL Globulin Albumin/Globulin Ratio Urine Color (YELLOW) Urine Appearance (CLEAR) Urine pH (5.0-9.0) Ur Specific [place] (1.005-1.030) Urine Protein (NEGATIVE) Urine Glucose (UA) (NEGATIVE) Urine Ketones (NEGATIVE) Urine Occult Blood (NEGATIVE) Urine Nitrite (NEGATIVE) Urine Bilirubin (NEGATIVE) Urine Urobilinogen (0.2-1.0) mg/dL Ur Leukocyte Esterase (NEGATIVE) Urine RBC /HPF Urine WBC (0-5/HPF) /HPF Ur Epithelial Cells (NOT SEEN) /HPF Amorphous Sediment (NOT SEEN) /HPF Urine Bacteria (0-FEW/HPF) /HPF Urine Mucus (NOT SEEN) /LPF Ketones Influenza Type A RNA (NEGATIVE) Influenza Type B RNA (NEGATIVE) SARS-CoV-2 RNA ([place]) (NEGATIVE) 10/22/20 Range/Units 15:04 WBC (5.0-10.0) 10^3/uL Corrected WBC RBC (4.6-6.2) 10^6/uL Hgb (14.0-18.0) g/dL Hct (40.0-54.0) % MCV (80-100) fL MCH (27.0-34.0) pg MCHC (33.0-35.0) g/dL Plt Count (150-450) 10^3/uL Neut % (Auto) (42.2-75.2) % Lymph % (Auto) (20.5-50.1) % [place] % (Auto) (2-8) % Eos % (Auto) (1.0-3.0) % Baso % (Auto) (0.0-1.0) % Add Manual Diff Neutrophils % (Manual) (42-75) % Band Neutrophils % % Lymphocytes % (Manual) (20-50) % Monocytes % (Manual) (2-8) % Nucleated RBCs /100WBC PT (9.0-12.0) SEC INR (0.9-1.2) ABG pH (7.35-7.45) ABG pCO2 (35-45) mmHg ABG pO2 (70-100) mmHg ABG HCO3 (22-26) mmol/L ABG O2 Saturation (95-100) % ABG Base Excess ((-2)-(+3)) mmol/L Sid Test O2 Delivery Device Sodium (136-145) mmol/L Potassium (3.5-5.1) mmol/L Chloride (98-107) mmol/L Carbon Dioxide (21-32) mmol/L Anion Gap (7-13) mEq/L BUN (7-18) mg/dL Creatinine (0.70-1.30) mg/dL Est Cr Clr Drug Dosing mL/min Estimated GFR (MDRD) BUN/Creatinine Ratio (No establ ref range) Glucose (70-99) mg/dL POC Glucose > 600 H* (70-99) mg/dL Lactic Acid (0.4-2.0) mmol/L Calcium (8.5-10.1) mg/dL Magnesium (1.8-2.4) mg/dL Total Bilirubin (0.2-1.0) mg/dL AST (15-37) U/L ALT (16-63) U/L Alkaline Phosphatase (46-116) U/L Troponin I (0.000-0.056) ng/mL B-Natriuretic Peptide (0-100) pg/ml Total Protein (6.4-8.2) g/dL Albumin (3.4-5.0) g/dL Globulin Albumin/Globulin Ratio Urine Color (YELLOW) Urine Appearance (CLEAR) Urine pH (5.0-9.0) Ur Specific [place] (1.005-1.030) Urine Protein (NEGATIVE) Urine Glucose (UA) (NEGATIVE) Urine Ketones (NEGATIVE) Urine Occult Blood (NEGATIVE) Urine Nitrite (NEGATIVE) Urine Bilirubin (NEGATIVE) Urine Urobilinogen (0.2-1.0) mg/dL Ur Leukocyte Esterase (NEGATIVE) Urine RBC /HPF Urine WBC (0-5/HPF) /HPF Ur Epithelial Cells (NOT SEEN) /HPF Amorphous Sediment (NOT SEEN) /HPF Urine Bacteria (0-FEW/HPF) /HPF Urine Mucus (NOT SEEN) /LPF Ketones Influenza Type A RNA (NEGATIVE) Influenza Type B RNA (NEGATIVE) SARS-CoV-2 RNA ([place]) (NEGATIVE) Result Diagrams: 10/22/20 13:49 10/22/20 13:49 Matt Results Last 24 hrs: Microbiology 10/22/20 13:52 Anaerobic Blood Culture - Final Blood - Arterial Line - Abg *Q Meaningful Use (ADM) - VTE Risk Assess *Q Each Risk Factor Represents 3 Points: Age 75 Years or Greater Other Thrombophilia Type: Myeloproliferative disorder Total Score 3 Point Risk Factors: 3 - Problem List (1) Diabetic ketoacidosis SNOMED Code(s): 283224939, 180920753 ICD Code: E11.10 - TYPE 2 DIABETES MELLITUS WITH KETOACIDOSIS WITHOUT COMA Status: Acute Current Visit: Yes Qualifiers: Diabetes mellitus type: type 2 Diabetes mellitus complication detail: without coma Qualified Code(s): E11.10 - Type 2 diabetes mellitus with ketoacidosis without coma (2) Essential thrombocytosis SNOMED Code(s): 814179276 ICD Code: D47.3 - ESSENTIAL (HEMORRHAGIC) THROMBOCYTHEMIA Status: Chronic Current Visit: Yes (3) Chronic kidney disease (CKD) SNOMED Code(s): 035991166 ICD Code: N18.9 - CHRONIC KIDNEY DISEASE, UNSPECIFIED Status: Chronic Current Visit: Yes (4) Chronic congestive heart failure SNOMED Code(s): 99078809 ICD Code: I50.9 - HEART FAILURE, UNSPECIFIED Status: Chronic Current Visit: Yes (5) Essential hypertension SNOMED Code(s): 76765294 ICD Code: I10 - ESSENTIAL (PRIMARY) HYPERTENSION Status: Chronic Current Visit: Yes (6) Hyperlipidemia SNOMED Code(s): 15796909 ICD Code: E78.5 - HYPERLIPIDEMIA, UNSPECIFIED Status: Chronic Current Visit: Yes (7) Type 2 diabetes mellitus SNOMED Code(s): 64808077 ICD Code: E11.9 - TYPE 2 DIABETES MELLITUS WITHOUT COMPLICATIONS Status: Chronic Current Visit: Yes (8) History of recent stroke SNOMED Code(s): 737193656 ICD Code: Z86.73 - PRSNL HX OF TIA (TIA), AND CEREB INFRC W/O RESID DEFICITS Status: Acute Current Visit: No (9) Recent cerebrovascular accident (CVA) SNOMED Code(s): 066282544 ICD Code: Z86.73 - PRSNL HX OF TIA (TIA), AND CEREB INFRC W/O RESID DEFICITS Status: Acute Current Visit: No Problem List Initiated/Reviewed/Updated: Yes Orders Last 24hrs: Active Orders 24 hr Category Date Time Status Admission Diagnosis [ADT] Stat ADT 10/22/20 15:00 Ordered Admission Status [Patient Status] [ADT] Routine ADT 10/22/20 15:00 Active Blood Glucose Check, Bedside [RC] ONETIME Care 10/22/20 15:19 Active Blood Glucose Check, Bedside [RC] Q1HR Care 10/22/20 16:00 Active Cardiac Monitoring [RC] CONTINUOUS Care 10/22/20 15:46 Active EKG Documentation Completion [RC] STAT Care 10/22/20 13:26 Active Intake and Output [RC] 06,14,22 Care 10/22/20 15:46 Active Oxygen Therapy [RC] PRN Care 10/22/20 15:35 Active Peripheral IV Care [RC] 08,20 Care 10/22/20 16:35 Active Pulse Oximetry [RC] CONTINUOUS Care 10/22/20 15:46 Active RT Aerosol Therapy [RC] ASDIRECTED Care 10/22/20 15:52 Active Up With Assistance [RC] ASDIRECTED Care 10/22/20 15:46 Active VTE/DVT Education [RC] PER UNIT ROUTINE Care 10/22/20 15:35 Active Vital Signs [RC] Q2H Care 10/22/20 15:46 Active Regular Diet [DIET] Diet 10/22/20 Dinner Active COMPREHENSIVE METABOLIC PN,CMP [CHEM] Timed Lab 10/22/20 20:00 Ordered CULTURE BLOOD [BC] Stat Lab 10/22/20 13:49 Received CULTURE BLOOD [BC] Stat Lab 10/22/20 13:52 Results REFLEX LACTIC ACID YES OR NO [CHEM] Routine Lab 10/22/20 14:44 Received Acetaminophen [TylenoL] Med 10/22/20 15:46 Active 650 mg PO Q4H PRN Aspirin [Halfprin] Med 10/23/20 09:00 Active 81 mg PO DAILY Dextrose 50% in Water Med 10/22/20 15:54 Active 50 ml IV Q15M PRN Enoxaparin [Lovenox] Med 10/22/20 16:00 Active 30 mg SUBCUT DAILY Folic Acid Med 10/23/20 09:00 Active 1 mg PO DAILY Furosemide [Lasix] Med 10/23/20 09:00 Active 40 mg PO DAILY Glucagon,Human Recombinant [GlucaGen] Med 10/22/20 15:54 Active 1 mg IM Q15M PRN Insulin Glarg,Human.Rec.Analog [LantUS] Med 10/22/20 21:00 Active 14 unit SUBCUT BEDTIME Insulin Regular in 0.9 % NACL [Myxredlin in NS 100 UNIT Med 10/22/20 16:15 Active /100 ML] 100 unit in 100 ml IV TITRATE Lactated Ringers [Ringers, Lactated] 1,000 ml Med 10/22/20 16:00 Active IV ASDIRECTED Omeprazole Med 10/23/20 06:00 Active 20 mg PO ACBREAKFAST Ondansetron [Zofran] Med 10/22/20 15:46 Active 4 mg IVPUSH Q6H PRN Ruxolitinib Phosphate [Jakafi] Med 10/22/20 21:00 Pending 20 mg PO BID Sodium Chloride 0.9% [Saline Flush] Med 10/22/20 16:34 Active 10 ml FLUSH ASDIRECTED PRN atenoloL [Tenormin] Med 10/22/20 21:00 Active 100 mg PO BID cloNIDine [Catapres] Med 10/22/20 21:00 Active 0.2 mg PO BID Blood Culture x2 Reflex Set [OM.PC] Stat Oth 10/22/20 13:26 Ordered Peripheral IV Insertion Adult [OM.PC] Routine Oth 10/22/20 16:34 Ordered Resuscitation Status Routine Resus Stat 10/22/20 15:35 Ordered Medication Orders Acetaminophen (Acetaminophen 325 Mg Tab) 650 mg PO Q4H PRN PRN Reason: Pain (Mild 1-3)/fever Aspirin (Aspirin 81 Mg Tab.Ec) 81 mg PO DAILY MARGARETTE Atenolol (Atenolol 50 Mg Tab) 100 mg PO BID MARGARETTE Clonidine HCl (Clonidine 0.1 Mg Tab) 0.2 mg PO BID MARGARETTE Dextrose/Water (50% Dextrose In Water 50 Ml Syringe) 50 ml IV Q15M PRN PRN Reason: Hypoglycemia Enoxaparin Sodium (Enoxaparin 30 Mg/0.3 Ml Syringe) 30 mg SUBCUT DAILY MARGARETTE Folic Acid (Folic Acid 1 Mg Tab) 1 mg PO DAILY MARGARETTE Furosemide (Furosemide 40 Mg Tab) 40 mg PO DAILY MARGARETTE Glucagon (Glucagon,Human Recombinant 1 Mg Vial) 1 mg IM Q15M PRN PRN Reason: Hypoglycemia Lactated Ringer's (Ringers, Lactated) 1,000 mls @ 125 mls/hr IV ASDIRECTED MARGARETTE Insulin Regular in 0.9 % NACL (Myxredlin In Ns 100 Unit/100 Ml) 100 unit in 100 mls @ 6.759 mls/hr IV TITRATE MARGARETTE; Protocol Insulin Glargine (Insulin Glarg,Human.Rec.Analog 100 Unit/Ml) 14 unit SUBCUT BEDTIME MARGARETTE Non-Formulary Medication (Ruxolitinib Phosphate [Jakafi]) 20 mg PO BID MARGARETTE Omeprazole (Omeprazole 20 Mg Cap.Cr) 20 mg PO ACBREAKFAST MARGARETTE Ondansetron HCl (Ondansetron 4 Mg/2 Ml Sdv) 4 mg IVPUSH Q6H PRN PRN Reason: Nausea/Vomiting Sodium Chloride (Sodium Chloride 0.9% 10 Ml Syringe) 10 ml FLUSH ASDIRECTED PRN PRN Reason: Keep Vein Open Assessment/Plan Comment:: Assessment: 1. 74-year-old man with diabetic ketoacidosis 2. Type 2 diabetes mellitus, insulin-dependent, with renal complication 3. Chronic kidney disease, stage II-III, from the past records I have access to it looks like his baseline creatinine is between 1.5 and 1.8 4. Resistant essential hypertension 5. Essential thrombocytosis and myeloproliferative disorder 6. Chronic congestive heart failure Plan: 1. He is admitted to acute inpatient 2. He is receiving fluid boluses at this time, we will then start him on an insulin drip. Once we get his blood sugar down to around 400, I will also start him on some D5 normal saline, to soften the descent of the blood sugars. 3. With his CBC showing a significant left shift, and his liver functions elevated as well as a lactate of 9, I think we can presume that some infection is causing his DKA. With his history of prostate problems it is most likely a urinary tract infection. We will therefore empirically treatment him with Unasyn, which should cover both respiratory and urinary infections 4. We will continue his home medications as he takes them. We will hold his hydralazine for now until his overall condition stabilizes 5. We will recheck his metabolic panel and lactate in 5 hours. 6. We will recheck all of his labs in the a.m., including liver functions and INR. 7. For VTE prophylaxis, will start him on a renal adjusted dose of Lovenox, 30 mg SQ daily
[2020-10-22] MEDS: Sodium Chloride 0.9% 10 ML Syringe FLUSH PRN (19:36)
[2020-10-22] MEDS: Enoxaparin 30 MG/0.3 ML Syringe SUBCUT SCH (19:36)
[2020-10-22] MEDS: Ampicillin/Sulbactam Na 3 GM in Sodium Chloride 0.9% 100 ML IV SCH (20:00)
[2020-10-22] MEDS ORDERED: ANAGRELIDE 0.5 MG PO SCH (21:00)
[2020-10-22] MEDS: cloNIDine 0.1 MG Tab PO SCH (21:08)
[2020-10-22] MEDS: Atenolol 50 MG Tab PO SCH (21:08)
[2020-10-22] MEDS: Insulin Glarg,Human.Rec.Analog 100 Unit/ML SUBCUT SCH (21:22)
[2020-10-22 21:35] LABS: ANION GAP 21.7 mEq/L (7-13)
[2020-10-22] MEDS ORDERED: Dextrose 5%-0.9% NaCl 1,000 ML IV SCH (22:45)
[2020-10-23] MEDS ORDERED: Lactated Ringers 1,000 ML IV SCH (03:45)
[2020-10-23] MEDS: Omeprazole 20 MG Cap.CR PO SCH (05:12)
[2020-10-23] MEDS: Ampicillin/Sulbactam Na 3 GM in Sodium Chloride 0.9% 100 ML IV SCH ×2 (05:12→18:53)
[2020-10-23 07:24] LABS: ANION GAP 10.5 mEq/L (7-13)
--- NOTE | 2020-10-23 09:29 | PCM.PN ---
- General Info Date of Service: 10/23/20 Admission Dx/Problem (Free Text): Admission Diagnosis/Problem Admission Diagnosis/Problem Diabetic ketoacidosis Subjective Update: Ramón did well overnight. He was on an insulin drip throughout all of yesterday afternoon and evening, as well as overnight. His glucoses came down nicely and incrementally, and the insulin drip was able to be discontinued at around 0500 this morning, after check of his urine showed no ketones. He reports he feels quite a bit better this morning, he seems to have color back in his cheeks. His girlfriend is here with him this morning, she states that he seems quite a bit better today as well. - Patient Data Vitals - Most Recent: Last Vital Signs Temp 98.2 F 10/23/20 08:05 Pulse 91 10/23/20 08:05 Resp 20 10/23/20 08:05 BP 170/83 H 10/23/20 08:05 Pulse Ox 97 10/23/20 08:05 Weight - Most Recent: 140 lb 9.6 oz I&O - Last 24 Hours: Intake & Output 10/22/20 10/23/20 10/23/20 22:59 06:59 14:59 Intake Total 240 1175 Balance 240 1175 Lab Results Last 24 Hours: Laboratory Results - last 24 hr 10/22/20 10/22/20 10/22/20 Range/Units 13:19 13:30 13:32 WBC (5.0-10.0) 10^3/uL Corrected WBC RBC (4.6-6.2) 10^6/uL Hgb (14.0-18.0) g/dL Hct (40.0-54.0) % MCV (80-100) fL MCH (27.0-34.0) pg MCHC (33.0-35.0) g/dL Plt Count (150-450) 10^3/uL Neut % (Auto) (42.2-75.2) % Lymph % (Auto) (20.5-50.1) % [place] % (Auto) (2-8) % Eos % (Auto) (1.0-3.0) % Baso % (Auto) (0.0-1.0) % Add Manual Diff Neutrophils % (Manual) (42-75) % Band Neutrophils % % Lymphocytes % (Manual) (20-50) % Monocytes % (Manual) (2-8) % Eosinophils % (Manual) (1-3) % Basophils % (Manual) Nucleated RBCs /100WBC Poikilocytosis Basophilic Stippling Anisocytosis Target Cells PT (9.0-12.0) SEC INR (0.9-1.2) ABG pH (7.35-7.45) ABG pCO2 (35-45) mmHg ABG pO2 (70-100) mmHg ABG HCO3 (22-26) mmol/L ABG O2 Saturation (95-100) % ABG Base Excess ((-2)-(+3)) mmol/L Sid Test O2 Delivery Device Sodium (136-145) mmol/L Potassium (3.5-5.1) mmol/L Chloride (98-107) mmol/L Carbon Dioxide (21-32) mmol/L Anion Gap (7-13) mEq/L BUN (7-18) mg/dL Creatinine (0.70-1.30) mg/dL Est Cr Clr Drug Dosing mL/min Estimated GFR (MDRD) BUN/Creatinine Ratio (No establ ref range) Glucose (70-99) mg/dL POC Glucose > 600 H* (70-99) mg/dL Lactic Acid (0.4-2.0) mmol/L Calcium (8.5-10.1) mg/dL Magnesium (1.8-2.4) mg/dL Total Bilirubin (0.2-1.0) mg/dL AST (15-37) U/L ALT (16-63) U/L Alkaline Phosphatase (46-116) U/L Troponin I (0.000-0.056) ng/mL B-Natriuretic Peptide (0-100) pg/ml Total Protein (6.4-8.2) g/dL Albumin (3.4-5.0) g/dL Globulin Albumin/Globulin Ratio Urine Color Yellow (YELLOW) Urine Appearance Slightly cloudy (CLEAR) Urine pH 5.0 (5.0-9.0) Ur Specific Dav[place] 1.015 (1.005-1.030) Urine Protein Trace H (NEGATIVE) Urine Glucose (UA) 500 H (NEGATIVE) Urine Ketones Trace H (NEGATIVE) Urine Occult Blood Trace-intact H (NEGATIVE) Urine Nitrite Negative (NEGATIVE) Urine Bilirubin Negative (NEGATIVE) Urine Urobilinogen 0.2 (0.2-1.0) mg/dL Ur Leukocyte Esterase Negative (NEGATIVE) Urine RBC 0-5 /HPF Urine WBC 0-5 (0-5/HPF) /HPF Ur Epithelial Cells Rare (NOT SEEN) /HPF Amorphous Sediment Few (NOT SEEN) /HPF Urine Bacteria Rare (0-FEW/HPF) /HPF Urine Mucus Rare (NOT SEEN) /LPF Ketones Influenza Type A RNA Negative (NEGATIVE) Influenza Type B RNA Negative (NEGATIVE) SARS-CoV-2 RNA ([place]) Negative (NEGATIVE) 10/22/20 10/22/20 10/22/20 Range/Units 13:46 13:49 13:49 WBC 4.4 L (5.0-10.0) 10^3/uL Corrected WBC 4.0 RBC 3.13 L (4.6-6.2) 10^6/uL Hgb 8.8 L (14.0-18.0) g/dL Hct 28.0 L (40.0-54.0) % MCV 89.5 D (80-100) fL MCH 28.1 (27.0-34.0) pg MCHC 31.4 L (33.0-35.0) g/dL Plt Count 402 (150-450) 10^3/uL Neut % (Auto) 36.2 L (42.2-75.2) % Lymph % (Auto) 47.1 (20.5-50.1) % [place] % (Auto) 14.2 H (2-8) % Eos % (Auto) 0.9 L (1.0-3.0) % Baso % (Auto) 1.6 H (0.0-1.0) % Add Manual Diff Yes Neutrophils % (Manual) 34 L (42-75) % Band Neutrophils % 10 % Lymphocytes % (Manual) 45 (20-50) % Monocytes % (Manual) 11 H (2-8) % Eosinophils % (Manual) (1-3) % Basophils % (Manual) Nucleated RBCs 5 /100WBC Poikilocytosis Basophilic Stippling Anisocytosis Target Cells PT (9.0-12.0) SEC INR (0.9-1.2) ABG pH 7.36 (7.35-7.45) ABG pCO2 31 L (35-45) mmHg ABG pO2 98 (70-100) mmHg ABG HCO3 16.6 L (22-26) mmol/L ABG O2 Saturation 97 (95-100) % ABG Base Excess -8 L ((-2)-(+3)) mmol/L Sid Test Positive O2 Delivery Device Room air Sodium 126 L (136-145) mmol/L Potassium 5.3 H (3.5-5.1) mmol/L Chloride 83 L (98-107) mmol/L Carbon Dioxide 19 L D (21-32) mmol/L Anion Gap 29.3 H (7-13) mEq/L BUN 69 H (7-18) mg/dL Creatinine 2.79 H D (0.70-1.30) mg/dL Est Cr Clr Drug Dosing 21.53 mL/min Estimated GFR (MDRD) 22 BUN/Creatinine Ratio 24.7 (No establ ref range) Glucose 877 H* (70-99) mg/dL POC Glucose (70-99) mg/dL Lactic Acid (0.4-2.0) mmol/L Calcium 9.3 (8.5-10.1) mg/dL Magnesium 2.7 H (1.8-2.4) mg/dL Total Bilirubin 2.0 H (0.2-1.0) mg/dL AST 247 H (15-37) U/L ALT 450 H (16-63) U/L Alkaline Phosphatase 276 H (46-116) U/L Troponin I 0.045 (0.000-0.056) ng/mL B-Natriuretic Peptide (0-100) pg/ml Total Protein 8.4 H (6.4-8.2) g/dL Albumin 3.1 L (3.4-5.0) g/dL Globulin 5.3 Albumin/Globulin Ratio 0.58 Urine Color (YELLOW) Urine Appearance (CLEAR) Urine pH (5.0-9.0) Ur Specific [place] (1.005-1.030) Urine Protein (NEGATIVE) Urine Glucose (UA) (NEGATIVE) Urine Ketones (NEGATIVE) Urine Occult Blood (NEGATIVE) Urine Nitrite (NEGATIVE) Urine Bilirubin (NEGATIVE) Urine Urobilinogen (0.2-1.0) mg/dL Ur Leukocyte Esterase (NEGATIVE) Urine RBC /HPF Urine WBC (0-5/HPF) /HPF Ur Epithelial Cells (NOT SEEN) /HPF Amorphous Sediment (NOT SEEN) /HPF Urine Bacteria (0-FEW/HPF) /HPF Urine Mucus (NOT SEEN) /LPF Ketones Large-80 mg/dl Influenza Type A RNA (NEGATIVE) Influenza Type B RNA (NEGATIVE) SARS-CoV-2 RNA ([place]) (NEGATIVE) 10/22/20 10/22/20 10/22/20 Range/Units 13:49 13:49 13:49 WBC (5.0-10.0) 10^3/uL Corrected WBC RBC (4.6-6.2) 10^6/uL Hgb (14.0-18.0) g/dL Hct (40.0-54.0) % MCV (80-100) fL MCH (27.0-34.0) pg MCHC (33.0-35.0) g/dL Plt Count (150-450) 10^3/uL Neut % (Auto) (42.2-75.2) % Lymph % (Auto) (20.5-50.1) % [place] % (Auto) (2-8) % Eos % (Auto) (1.0-3.0) % Baso % (Auto) (0.0-1.0) % Add Manual Diff Neutrophils % (Manual) (42-75) % Band Neutrophils % % Lymphocytes % (Manual) (20-50) % Monocytes % (Manual) (2-8) % Eosinophils % (Manual) (1-3) % Basophils % (Manual) Nucleated RBCs /100WBC Poikilocytosis Basophilic Stippling Anisocytosis Target Cells PT 17.4 H D (9.0-12.0) SEC INR 1.7 H (0.9-1.2) ABG pH (7.35-7.45) ABG pCO2 (35-45) mmHg ABG pO2 (70-100) mmHg ABG HCO3 (22-26) mmol/L ABG O2 Saturation (95-100) % ABG Base Excess ((-2)-(+3)) mmol/L Sid Test O2 Delivery Device Sodium (136-145) mmol/L Potassium (3.5-5.1) mmol/L Chloride (98-107) mmol/L Carbon Dioxide (21-32) mmol/L Anion Gap (7-13) mEq/L BUN (7-18) mg/dL Creatinine (0.70-1.30) mg/dL Est Cr Clr Drug Dosing mL/min Estimated GFR (MDRD) BUN/Creatinine Ratio (No establ ref range) Glucose (70-99) mg/dL POC Glucose (70-99) mg/dL Lactic Acid 9.4 H* (0.4-2.0) mmol/L Calcium (8.5-10.1) mg/dL Magnesium (1.8-2.4) mg/dL Total Bilirubin (0.2-1.0) mg/dL AST (15-37) U/L ALT (16-63) U/L Alkaline Phosphatase (46-116) U/L Troponin I (0.000-0.056) ng/mL B-Natriuretic Peptide 1320 H (0-100) pg/ml Total Protein (6.4-8.2) g/dL Albumin (3.4-5.0) g/dL Globulin Albumin/Globulin Ratio Urine Color (YELLOW) Urine Appearance (CLEAR) Urine pH (5.0-9.0) Ur Specific [place] (1.005-1.030) Urine Protein (NEGATIVE) Urine Glucose (UA) (NEGATIVE) Urine Ketones (NEGATIVE) Urine Occult Blood (NEGATIVE) Urine Nitrite (NEGATIVE) Urine Bilirubin (NEGATIVE) Urine Urobilinogen (0.2-1.0) mg/dL Ur Leukocyte Esterase (NEGATIVE) Urine RBC /HPF Urine WBC (0-5/HPF) /HPF Ur Epithelial Cells (NOT SEEN) /HPF Amorphous Sediment (NOT SEEN) /HPF Urine Bacteria (0-FEW/HPF) /HPF Urine Mucus (NOT SEEN) /LPF Ketones Influenza Type A RNA (NEGATIVE) Influenza Type B RNA (NEGATIVE) SARS-CoV-2 RNA ([place]) (NEGATIVE) 10/22/20 10/22/20 10/22/20 Range/Units 15:04 17:13 18:17 WBC (5.0-10.0) 10^3/uL Corrected WBC RBC (4.6-6.2) 10^6/uL Hgb (14.0-18.0) g/dL Hct (40.0-54.0) % MCV (80-100) fL MCH (27.0-34.0) pg MCHC (33.0-35.0) g/dL Plt Count (150-450) 10^3/uL Neut % (Auto) (42.2-75.2) % Lymph % (Auto) (20.5-50.1) % [place] % (Auto) (2-8) % Eos % (Auto) (1.0-3.0) % Baso % (Auto) (0.0-1.0) % Add Manual Diff Neutrophils % (Manual) (42-75) % Band Neutrophils % % Lymphocytes % (Manual) (20-50) % Monocytes % (Manual) (2-8) % Eosinophils % (Manual) (1-3) % Basophils % (Manual) Nucleated RBCs /100WBC Poikilocytosis Basophilic Stippling Anisocytosis Target Cells PT (9.0-12.0) SEC INR (0.9-1.2) ABG pH (7.35-7.45) ABG pCO2 (35-45) mmHg ABG pO2 (70-100) mmHg ABG HCO3 (22-26) mmol/L ABG O2 Saturation (95-100) % ABG Base Excess ((-2)-(+3)) mmol/L Sid Test O2 Delivery Device Sodium (136-145) mmol/L Potassium (3.5-5.1) mmol/L Chloride (98-107) mmol/L Carbon Dioxide (21-32) mmol/L Anion Gap (7-13) mEq/L BUN (7-18) mg/dL Creatinine (0.70-1.30) mg/dL Est Cr Clr Drug Dosing mL/min Estimated GFR (MDRD) BUN/Creatinine Ratio (No establ ref range) Glucose (70-99) mg/dL POC Glucose > 600 H* > 600 H* > 600 H* (70-99) mg/dL Lactic Acid (0.4-2.0) mmol/L Calcium (8.5-10.1) mg/dL Magnesium (1.8-2.4) mg/dL Total Bilirubin (0.2-1.0) mg/dL AST (15-37) U/L ALT (16-63) U/L Alkaline Phosphatase (46-116) U/L Troponin I (0.000-0.056) ng/mL B-Natriuretic Peptide (0-100) pg/ml Total Protein (6.4-8.2) g/dL Albumin (3.4-5.0) g/dL Globulin Albumin/Globulin Ratio Urine Color (YELLOW) Urine Appearance (CLEAR) Urine pH (5.0-9.0) Ur Specific [place] (1.005-1.030) Urine Protein (NEGATIVE) Urine Glucose (UA) (NEGATIVE) Urine Ketones (NEGATIVE) Urine Occult Blood (NEGATIVE) Urine Nitrite (NEGATIVE) Urine Bilirubin (NEGATIVE) Urine Urobilinogen (0.2-1.0) mg/dL Ur Leukocyte Esterase (NEGATIVE) Urine RBC /HPF Urine WBC (0-5/HPF) /HPF Ur Epithelial Cells (NOT SEEN) /HPF Amorphous Sediment (NOT SEEN) /HPF Urine Bacteria (0-FEW/HPF) /HPF Urine Mucus (NOT SEEN) /LPF Ketones Influenza Type A RNA (NEGATIVE) Influenza Type B RNA (NEGATIVE) SARS-CoV-2 RNA ([place]) (NEGATIVE) 10/22/20 10/22/20 10/22/20 Range/Units 20:25 20:25 21:18 WBC (5.0-10.0) 10^3/uL Corrected WBC RBC (4.6-6.2) 10^6/uL Hgb (14.0-18.0) g/dL Hct (40.0-54.0) % MCV (80-100) fL MCH (27.0-34.0) pg MCHC (33.0-35.0) g/dL Plt Count (150-450) 10^3/uL Neut % (Auto) (42.2-75.2) % Lymph % (Auto) (20.5-50.1) % [place] % (Auto) (2-8) % Eos % (Auto) (1.0-3.0) % Baso % (Auto) (0.0-1.0) % Add Manual Diff Neutrophils % (Manual) (42-75) % Band Neutrophils % % Lymphocytes % (Manual) (20-50) % Monocytes % (Manual) (2-8) % Eosinophils % (Manual) (1-3) % Basophils % (Manual) Nucleated RBCs /100WBC Poikilocytosis Basophilic Stippling Anisocytosis Target Cells PT (9.0-12.0) SEC INR (0.9-1.2) ABG pH (7.35-7.45) ABG pCO2 (35-45) mmHg ABG pO2 (70-100) mmHg ABG HCO3 (22-26) mmol/L ABG O2 Saturation (95-100) % ABG Base Excess ((-2)-(+3)) mmol/L Sid Test O2 Delivery Device Sodium 132 L (136-145) mmol/L Potassium 3.7 D (3.5-5.1) mmol/L Chloride 91 L (98-107) mmol/L Carbon Dioxide 23 (21-32) mmol/L Anion Gap 21.7 H (7-13) mEq/L BUN 64 H (7-18) mg/dL Creatinine 2.18 H (0.70-1.30) mg/dL Est Cr Clr Drug Dosing 26.00 mL/min Estimated GFR (MDRD) 30 BUN/Creatinine Ratio 29.4 (No establ ref range) Glucose 573 H* (70-99) mg/dL POC Glucose 483 H* (70-99) mg/dL Lactic Acid 3.8 H* (0.4-2.0) mmol/L Calcium 8.4 L (8.5-10.1) mg/dL Magnesium (1.8-2.4) mg/dL Total Bilirubin 1.2 H (0.2-1.0) mg/dL AST 362 H (15-37) U/L ALT 565 H (16-63) U/L Alkaline Phosphatase 259 H (46-116) U/L Troponin I (0.000-0.056) ng/mL B-Natriuretic Peptide (0-100) pg/ml Total Protein 7.3 (6.4-8.2) g/dL Albumin 2.9 L (3.4-5.0) g/dL Globulin 4.4 Albumin/Globulin Ratio 0.66 Urine Color (YELLOW) Urine Appearance (CLEAR) Urine pH (5.0-9.0) Ur Specific [place] (1.005-1.030) Urine Protein (NEGATIVE) Urine Glucose (UA) (NEGATIVE) Urine Ketones (NEGATIVE) Urine Occult Blood (NEGATIVE) Urine Nitrite (NEGATIVE) Urine Bilirubin (NEGATIVE) Urine Urobilinogen (0.2-1.0) mg/dL Ur Leukocyte Esterase (NEGATIVE) Urine RBC /HPF Urine WBC (0-5/HPF) /HPF Ur Epithelial Cells (NOT SEEN) /HPF Amorphous Sediment (NOT SEEN) /HPF Urine Bacteria (0-FEW/HPF) /HPF Urine Mucus (NOT SEEN) /LPF Ketones Influenza Type A RNA (NEGATIVE) Influenza Type B RNA (NEGATIVE) SARS-CoV-2 RNA ([place]) (NEGATIVE) 10/22/20 10/22/20 10/23/20 Range/Units 22:27 23:39 00:40 WBC (5.0-10.0) 10^3/uL Corrected WBC RBC (4.6-6.2) 10^6/uL Hgb (14.0-18.0) g/dL Hct (40.0-54.0) % MCV (80-100) fL MCH (27.0-34.0) pg MCHC (33.0-35.0) g/dL Plt Count (150-450) 10^3/uL Neut % (Auto) (42.2-75.2) % Lymph % (Auto) (20.5-50.1) % [place] % (Auto) (2-8) % Eos % (Auto) (1.0-3.0) % Baso % (Auto) (0.0-1.0) % Add Manual Diff Neutrophils % (Manual) (42-75) % Band Neutrophils % % Lymphocytes % (Manual) (20-50) % Monocytes % (Manual) (2-8) % Eosinophils % (Manual) (1-3) % Basophils % (Manual) Nucleated RBCs /100WBC Poikilocytosis Basophilic Stippling Anisocytosis Target Cells PT (9.0-12.0) SEC INR (0.9-1.2) ABG pH (7.35-7.45) ABG pCO2 (35-45) mmHg ABG pO2 (70-100) mmHg ABG HCO3 (22-26) mmol/L ABG O2 Saturation (95-100) % ABG Base Excess ((-2)-(+3)) mmol/L Sid Test O2 Delivery Device Sodium (136-145) mmol/L Potassium (3.5-5.1) mmol/L Chloride (98-107) mmol/L Carbon Dioxide (21-32) mmol/L Anion Gap (7-13) mEq/L BUN (7-18) mg/dL Creatinine (0.70-1.30) mg/dL Est Cr Clr Drug Dosing mL/min Estimated GFR (MDRD) BUN/Creatinine Ratio (No establ ref range) Glucose (70-99) mg/dL POC Glucose 377 H 308 H 222 H (70-99) mg/dL Lactic Acid (0.4-2.0) mmol/L Calcium (8.5-10.1) mg/dL Magnesium (1.8-2.4) mg/dL Total Bilirubin (0.2-1.0) mg/dL AST (15-37) U/L ALT (16-63) U/L Alkaline Phosphatase (46-116) U/L Troponin I (0.000-0.056) ng/mL B-Natriuretic Peptide (0-100) pg/ml Total Protein (6.4-8.2) g/dL Albumin (3.4-5.0) g/dL Globulin Albumin/Globulin Ratio Urine Color (YELLOW) Urine Appearance (CLEAR) Urine pH (5.0-9.0) Ur Specific [place] (1.005-1.030) Urine Protein (NEGATIVE) Urine Glucose (UA) (NEGATIVE) Urine Ketones (NEGATIVE) Urine Occult Blood (NEGATIVE) Urine Nitrite (NEGATIVE) Urine Bilirubin (NEGATIVE) Urine Urobilinogen (0.2-1.0) mg/dL Ur Leukocyte Esterase (NEGATIVE) Urine RBC /HPF Urine WBC (0-5/HPF) /HPF Ur Epithelial Cells (NOT SEEN) /HPF Amorphous Sediment (NOT SEEN) /HPF Urine Bacteria (0-FEW/HPF) /HPF Urine Mucus (NOT SEEN) /LPF Ketones Influenza Type A RNA (NEGATIVE) Influenza Type B RNA (NEGATIVE) SARS-CoV-2 RNA ([place]) (NEGATIVE) 10/23/20 10/23/20 10/23/20 Range/Units 01:42 02:50 03:26 WBC (5.0-10.0) 10^3/uL Corrected WBC RBC (4.6-6.2) 10^6/uL Hgb (14.0-18.0) g/dL Hct (40.0-54.0) % MCV (80-100) fL MCH (27.0-34.0) pg MCHC (33.0-35.0) g/dL Plt Count (150-450) 10^3/uL Neut % (Auto) (42.2-75.2) % Lymph % (Auto) (20.5-50.1) % [place] % (Auto) (2-8) % Eos % (Auto) (1.0-3.0) % Baso % (Auto) (0.0-1.0) % Add Manual Diff Neutrophils % (Manual) (42-75) % Band Neutrophils % % Lymphocytes % (Manual) (20-50) % Monocytes % (Manual) (2-8) % Eosinophils % (Manual) (1-3) % Basophils % (Manual) Nucleated RBCs /100WBC Poikilocytosis Basophilic Stippling Anisocytosis Target Cells PT (9.0-12.0) SEC INR (0.9-1.2) ABG pH (7.35-7.45) ABG pCO2 (35-45) mmHg ABG pO2 (70-100) mmHg ABG HCO3 (22-26) mmol/L ABG O2 Saturation (95-100) % ABG Base Excess ((-2)-(+3)) mmol/L Sid Test O2 Delivery Device Sodium (136-145) mmol/L Potassium (3.5-5.1) mmol/L Chloride (98-107) mmol/L Carbon Dioxide (21-32) mmol/L Anion Gap (7-13) mEq/L BUN (7-18) mg/dL Creatinine (0.70-1.30) mg/dL Est Cr Clr Drug Dosing mL/min Estimated GFR (MDRD) BUN/Creatinine Ratio (No establ ref range) Glucose (70-99) mg/dL POC Glucose 189 H 117 H (70-99) mg/dL Lactic Acid (0.4-2.0) mmol/L Calcium (8.5-10.1) mg/dL Magnesium (1.8-2.4) mg/dL Total Bilirubin (0.2-1.0) mg/dL AST (15-37) U/L ALT (16-63) U/L Alkaline Phosphatase (46-116) U/L Troponin I (0.000-0.056) ng/mL B-Natriuretic Peptide (0-100) pg/ml Total Protein (6.4-8.2) g/dL Albumin (3.4-5.0) g/dL Globulin Albumin/Globulin Ratio Urine Color Yellow (YELLOW) Urine Appearance Slightly cloudy (CLEAR) Urine pH 5.5 (5.0-9.0) Ur Specific [place] 1.015 (1.005-1.030) Urine Protein 30 H (NEGATIVE) Urine Glucose (UA) 500 H (NEGATIVE) Urine Ketones Negative (NEGATIVE) Urine Occult Blood Small H (NEGATIVE) Urine Nitrite Negative (NEGATIVE) Urine Bilirubin Negative (NEGATIVE) Urine Urobilinogen 0.2 (0.2-1.0) mg/dL Ur Leukocyte Esterase Negative (NEGATIVE) Urine RBC 0-5 /HPF Urine WBC 0-5 (0-5/HPF) /HPF Ur Epithelial Cells Rare (NOT SEEN) /HPF Amorphous Sediment Moderate (NOT SEEN) /HPF Urine Bacteria Few (0-FEW/HPF) /HPF Urine Mucus Not seen (NOT SEEN) /LPF Ketones Influenza Type A RNA (NEGATIVE) Influenza Type B RNA (NEGATIVE) SARS-CoV-2 RNA ([place]) (NEGATIVE) 10/23/20 10/23/20 10/23/20 Range/Units 05:02 05:45 06:06 WBC 3.1 L (5.0-10.0) 10^3/uL Corrected WBC 2.0 RBC 2.82 L (4.6-6.2) 10^6/uL Hgb 8.0 L (14.0-18.0) g/dL Hct 23.9 L (40.0-54.0) % MCV 84.8 D (80-100) fL MCH 28.4 (27.0-34.0) pg MCHC 33.5 (33.0-35.0) g/dL Plt Count 295 D (150-450) 10^3/uL Neut % (Auto) 43.6 (42.2-75.2) % Lymph % (Auto) 33.2 (20.5-50.1) % [place] % (Auto) 22.0 H (2-8) % Eos % (Auto) 0.6 L (1.0-3.0) % Baso % (Auto) 0.6 (0.0-1.0) % Add Manual Diff Yes Neutrophils % (Manual) 28 L (42-75) % Band Neutrophils % 15 % Lymphocytes % (Manual) 35 (20-50) % Monocytes % (Manual) 17 H (2-8) % Eosinophils % (Manual) 3 (1-3) % Basophils % (Manual) 2 Nucleated RBCs 8 /100WBC Poikilocytosis 1+ slight Basophilic Stippling Few Anisocytosis 1+ slight Target Cells 1+ slight PT (9.0-12.0) SEC INR (0.9-1.2) ABG pH (7.35-7.45) ABG pCO2 (35-45) mmHg ABG pO2 (70-100) mmHg ABG HCO3 (22-26) mmol/L ABG O2 Saturation (95-100) % ABG Base Excess ((-2)-(+3)) mmol/L Sid Test O2 Delivery Device Sodium (136-145) mmol/L Potassium (3.5-5.1) mmol/L Chloride (98-107) mmol/L Carbon Dioxide (21-32) mmol/L Anion Gap (7-13) mEq/L BUN (7-18) mg/dL Creatinine (0.70-1.30) mg/dL Est Cr Clr Drug Dosing mL/min Estimated GFR (MDRD) BUN/Creatinine Ratio (No establ ref range) Glucose (70-99) mg/dL POC Glucose 59 L 138 H (70-99) mg/dL Lactic Acid (0.4-2.0) mmol/L Calcium (8.5-10.1) mg/dL Magnesium (1.8-2.4) mg/dL Total Bilirubin (0.2-1.0) mg/dL AST (15-37) U/L ALT (16-63) U/L Alkaline Phosphatase (46-116) U/L Troponin I (0.000-0.056) ng/mL B-Natriuretic Peptide (0-100) pg/ml Total Protein (6.4-8.2) g/dL Albumin (3.4-5.0) g/dL Globulin Albumin/Globulin Ratio Urine Color (YELLOW) Urine Appearance (CLEAR) Urine pH (5.0-9.0) Ur Specific [place] (1.005-1.030) Urine Protein (NEGATIVE) Urine Glucose (UA) (NEGATIVE) Urine Ketones (NEGATIVE) Urine Occult Blood (NEGATIVE) Urine Nitrite (NEGATIVE) Urine Bilirubin (NEGATIVE) Urine Urobilinogen (0.2-1.0) mg/dL Ur Leukocyte Esterase (NEGATIVE) Urine RBC /HPF Urine WBC (0-5/HPF) /HPF Ur Epithelial Cells (NOT SEEN) /HPF Amorphous Sediment (NOT SEEN) /HPF Urine Bacteria (0-FEW/HPF) /HPF Urine Mucus (NOT SEEN) /LPF Ketones Influenza Type A RNA (NEGATIVE) Influenza Type B RNA (NEGATIVE) SARS-CoV-2 RNA ([place]) (NEGATIVE) 10/23/20 10/23/20 10/23/20 Range/Units 06:06 06:06 06:06 WBC (5.0-10.0) 10^3/uL Corrected WBC RBC (4.6-6.2) 10^6/uL Hgb (14.0-18.0) g/dL Hct (40.0-54.0) % MCV (80-100) fL MCH (27.0-34.0) pg MCHC (33.0-35.0) g/dL Plt Count (150-450) 10^3/uL Neut % (Auto) (42.2-75.2) % Lymph % (Auto) (20.5-50.1) % [place] % (Auto) (2-8) % Eos % (Auto) (1.0-3.0) % Baso % (Auto) (0.0-1.0) % Add Manual Diff Neutrophils % (Manual) (42-75) % Band Neutrophils % % Lymphocytes % (Manual) (20-50) % Monocytes % (Manual) (2-8) % Eosinophils % (Manual) (1-3) % Basophils % (Manual) Nucleated RBCs /100WBC Poikilocytosis Basophilic Stippling Anisocytosis Target Cells PT 14.4 H (9.0-12.0) SEC INR 1.4 H (0.9-1.2) ABG pH (7.35-7.45) ABG pCO2 (35-45) mmHg ABG pO2 (70-100) mmHg ABG HCO3 (22-26) mmol/L ABG O2 Saturation (95-100) % ABG Base Excess ((-2)-(+3)) mmol/L Sid Test O2 Delivery Device Sodium 139 (136-145) mmol/L Potassium 3.5 (3.5-5.1) mmol/L Chloride 99 (98-107) mmol/L Carbon Dioxide 33 H (21-32) mmol/L Anion Gap 10.5 (7-13) mEq/L BUN 50 H (7-18) mg/dL Creatinine 1.65 H (0.70-1.30) mg/dL Est Cr Clr Drug Dosing 34.36 mL/min Estimated GFR (MDRD) 41 BUN/Creatinine Ratio 30.3 (No establ ref range) Glucose 128 H (70-99) mg/dL POC Glucose (70-99) mg/dL Lactic Acid 1.4 (0.4-2.0) mmol/L Calcium 8.4 L (8.5-10.1) mg/dL Magnesium (1.8-2.4) mg/dL Total Bilirubin 1.1 H (0.2-1.0) mg/dL AST 284 H (15-37) U/L ALT 483 H (16-63) U/L Alkaline Phosphatase 235 H (46-116) U/L Troponin I (0.000-0.056) ng/mL B-Natriuretic Peptide (0-100) pg/ml Total Protein 6.8 (6.4-8.2) g/dL Albumin 2.6 L (3.4-5.0) g/dL Globulin 4.2 Albumin/Globulin Ratio 0.62 Urine Color (YELLOW) Urine Appearance (CLEAR) Urine pH (5.0-9.0) Ur Specific [place] (1.005-1.030) Urine Protein (NEGATIVE) Urine Glucose (UA) (NEGATIVE) Urine Ketones (NEGATIVE) Urine Occult Blood (NEGATIVE) Urine Nitrite (NEGATIVE) Urine Bilirubin (NEGATIVE) Urine Urobilinogen (0.2-1.0) mg/dL Ur Leukocyte Esterase (NEGATIVE) Urine RBC /HPF Urine WBC (0-5/HPF) /HPF Ur Epithelial Cells (NOT SEEN) /HPF Amorphous Sediment (NOT SEEN) /HPF Urine Bacteria (0-FEW/HPF) /HPF Urine Mucus (NOT SEEN) /LPF Ketones Influenza Type A RNA (NEGATIVE) Influenza Type B RNA (NEGATIVE) SARS-CoV-2 RNA ([place]) (NEGATIVE) 10/23/20 Range/Units 07:26 WBC (5.0-10.0) 10^3/uL Corrected WBC RBC (4.6-6.2) 10^6/uL Hgb (14.0-18.0) g/dL Hct (40.0-54.0) % MCV (80-100) fL MCH (27.0-34.0) pg MCHC (33.0-35.0) g/dL Plt Count (150-450) 10^3/uL Neut % (Auto) (42.2-75.2) % Lymph % (Auto) (20.5-50.1) % [place] % (Auto) (2-8) % Eos % (Auto) (1.0-3.0) % Baso % (Auto) (0.0-1.0) % Add Manual Diff Neutrophils % (Manual) (42-75) % Band Neutrophils % % Lymphocytes % (Manual) (20-50) % Monocytes % (Manual) (2-8) % Eosinophils % (Manual) (1-3) % Basophils % (Manual) Nucleated RBCs /100WBC Poikilocytosis Basophilic Stippling Anisocytosis Target Cells PT (9.0-12.0) SEC INR (0.9-1.2) ABG pH (7.35-7.45) ABG pCO2 (35-45) mmHg ABG pO2 (70-100) mmHg ABG HCO3 (22-26) mmol/L ABG O2 Saturation (95-100) % ABG Base Excess ((-2)-(+3)) mmol/L Sid Test O2 Delivery Device Sodium (136-145) mmol/L Potassium (3.5-5.1) mmol/L Chloride (98-107) mmol/L Carbon Dioxide (21-32) mmol/L Anion Gap (7-13) mEq/L BUN (7-18) mg/dL Creatinine (0.70-1.30) mg/dL Est Cr Clr Drug Dosing mL/min Estimated GFR (MDRD) BUN/Creatinine Ratio (No establ ref range) Glucose (70-99) mg/dL POC Glucose 106 H (70-99) mg/dL Lactic Acid (0.4-2.0) mmol/L Calcium (8.5-10.1) mg/dL Magnesium (1.8-2.4) mg/dL Total Bilirubin (0.2-1.0) mg/dL AST (15-37) U/L ALT (16-63) U/L Alkaline Phosphatase (46-116) U/L Troponin I (0.000-0.056) ng/mL B-Natriuretic Peptide (0-100) pg/ml Total Protein (6.4-8.2) g/dL Albumin (3.4-5.0) g/dL Globulin Albumin/Globulin Ratio Urine Color (YELLOW) Urine Appearance (CLEAR) Urine pH (5.0-9.0) Ur Specific [place] (1.005-1.030) Urine Protein (NEGATIVE) Urine Glucose (UA) (NEGATIVE) Urine Ketones (NEGATIVE) Urine Occult Blood (NEGATIVE) Urine Nitrite (NEGATIVE) Urine Bilirubin (NEGATIVE) Urine Urobilinogen (0.2-1.0) mg/dL Ur Leukocyte Esterase (NEGATIVE) Urine RBC /HPF Urine WBC (0-5/HPF) /HPF Ur Epithelial Cells (NOT SEEN) /HPF Amorphous Sediment (NOT SEEN) /HPF Urine Bacteria (0-FEW/HPF) /HPF Urine Mucus (NOT SEEN) /LPF Ketones Influenza Type A RNA (NEGATIVE) Influenza Type B RNA (NEGATIVE) SARS-CoV-2 RNA ([place]) (NEGATIVE) Matt Results Last 24 Hours: Microbiology 10/22/20 13:52 Anaerobic Blood Culture - Final Blood - Arterial Line - Abg Med Orders - Current: Current Medications Acetaminophen (Acetaminophen 325 Mg Tab) 650 mg PO Q4H PRN PRN Reason: Pain (Mild 1-3)/fever Aspirin (Aspirin 81 Mg Tab.Ec) 81 mg PO DAILY [facility] Atenolol (Atenolol 50 Mg Tab) 100 mg PO BID [facility] Last Admin: 10/22/20 21:08 Dose: 100 mg Documented by: Clonidine HCl (Clonidine 0.1 Mg Tab) 0.2 mg PO BID [facility] Last Admin: 10/22/20 21:08 Dose: 0.2 mg Documented by: Dextrose/Water (50% Dextrose In Water 50 Ml Syringe) 50 ml IV Q15M PRN PRN Reason: Hypoglycemia Last Admin: 10/23/20 05:06 Dose: 50 ml Documented by: Enoxaparin Sodium (Enoxaparin 30 Mg/0.3 Ml Syringe) 30 mg SUBCUT DAILY [facility] Last Admin: 10/22/20 19:36 Dose: 30 mg Documented by: Folic Acid (Folic Acid 1 Mg Tab) 1 mg PO DAILY [facility] Furosemide (Furosemide 40 Mg Tab) 40 mg PO DAILY [facility] Glucagon (Glucagon,Human Recombinant 1 Mg Vial) 1 mg IM Q15M PRN PRN Reason: Hypoglycemia Ampicillin Sodium/Sulbactam (Sodium 3 gm/ Sodium Chloride) 100 mls @ 100 mls/hr IV Q12H [facility] Last Admin: 10/23/20 05:12 Dose: 100 mls/hr Documented by: Lactated Ringer's (Ringers, Lactated) 1,000 mls @ 75 mls/hr IV ASDIRECTED [facility] Last Admin: 10/23/20 03:48 Dose: 75 mls/hr Documented by: Insulin Glargine (Insulin Glarg,Human.Rec.Analog 100 Unit/Ml) 14 unit SUBCUT BEDTIME [facility] Last Admin: 10/22/20 21:22 Dose: 14 unit Documented by: Ruxolitinib [Jakafi] 20 Mg Tablet *Own Med* 20 mg PO BID [facility] Omeprazole (Omeprazole 20 Mg Cap.Cr) 20 mg PO ACBREAKFAST [facility] Last Admin: 10/23/20 05:12 Dose: 20 mg Documented by: Ondansetron HCl (Ondansetron 4 Mg/2 Ml Sdv) 4 mg IVPUSH Q6H PRN PRN Reason: Nausea/Vomiting Sodium Chloride (Sodium Chloride 0.9% 10 Ml Syringe) 10 ml FLUSH ASDIRECTED PRN PRN Reason: Keep Vein Open Last Admin: 10/22/20 19:36 Dose: 10 ml Documented by: Discontinued Medications Acetaminophen (Acetaminophen 325 Mg Tab) 650 mg PO Q6HR PRN PRN Reason: Pain Albuterol (Albuterol 0.083% 2.5 Mg/3 Ml Neb Soln) 2.5 mg NEB ONETIME ONE Stop: 10/22/20 16:01 Last Admin: 10/22/20 19:43 Dose: 2.5 mg Documented by: Dextrose/Water (50% Dextrose In Water 50 Ml Syringe) 50 ml IV Q15M PRN PRN Reason: Hypoglycemia Glucagon (Glucagon,Human Recombinant 1 Mg Vial) 1 mg IM Q15M PRN PRN Reason: Hypoglycemia Sodium Chloride (Normal Saline) 1,000 mls @ 999 mls/hr IV .BOLUS ONE Stop: 10/22/20 15:36 Last Infusion: 10/22/20 17:27 Dose: Infused Documented by: Lactated Ringer's (Ringers, Lactated) 1,000 mls @ 125 mls/hr IV ASDIRECTED [facility] Last Admin: 10/22/20 19:36 Dose: 125 mls/hr Documented by: Insulin Regular in 0.9 % NACL (Myxredlin In Ns 100 Unit/100 Ml) 100 unit in 100 mls @ 6.759 mls/hr IV TITRATE MARGARETTE; Protocol Last Titration: 10/23/20 03:33 Dose: 0 units/kg/hr, 0 mls/hr Documented by: Dextrose/Sodium Chloride (Dextrose 5%-Normal Saline) 1,000 mls @ 75 mls/hr IV ASDIRECTED MARGARETTE Last Infusion: 10/23/20 02:16 Dose: 125 mls/hr Documented by: Insulin Human Regular (Insulin Regular, Human 100 Units/Ml 3 Ml Vial) 15 unit IV ONETIME ONE Stop: 10/22/20 14:21 Last Admin: 10/22/20 14:26 Dose: 15 units Documented by: Insulin Human Regular (Insulin Regular, Human 100 Units/Ml 3 Ml Vial) 15 unit IV ONETIME ONE Stop: 10/22/20 19:31 Last Admin: 10/22/20 19:38 Dose: 15 units Documented by: Non-Formulary Medication (Anagrelide) 0.5 mg PO BID MARGARETTE - Exam Physical Findings Comments:: General: Ramón is a 74-year-old man in no acute distress Oropharynx is clear, mucous membranes are moist Neck: Supple, no lymphadenopathy Heart: Regular rate and rhythm, 1 out of 6 to 2 out of 6 systolic murmur heard over the left sternal border Lungs: Clear to auscultation throughout Abdomen: Soft, nontender to palpation, normal bowel sounds heard throughout He is moving all of his extremities normally - Patient Data Lab Results Last 24 hrs: Laboratory Results - last 24 hr 10/22/20 10/22/20 10/22/20 Range/Units 13:19 13:30 13:32 WBC (5.0-10.0) 10^3/uL Corrected WBC RBC (4.6-6.2) 10^6/uL Hgb (14.0-18.0) g/dL Hct (40.0-54.0) % MCV (80-100) fL MCH (27.0-34.0) pg MCHC (33.0-35.0) g/dL Plt Count (150-450) 10^3/uL Neut % (Auto) (42.2-75.2) % Lymph % (Auto) (20.5-50.1) % [place] % (Auto) (2-8) % Eos % (Auto) (1.0-3.0) % Baso % (Auto) (0.0-1.0) % Add Manual Diff Neutrophils % (Manual) (42-75) % Band Neutrophils % % Lymphocytes % (Manual) (20-50) % Monocytes % (Manual) (2-8) % Eosinophils % (Manual) (1-3) % Basophils % (Manual) Nucleated RBCs /100WBC Poikilocytosis Basophilic Stippling Anisocytosis Target Cells PT (9.0-12.0) SEC INR (0.9-1.2) ABG pH (7.35-7.45) ABG pCO2 (35-45) mmHg ABG pO2 (70-100) mmHg ABG HCO3 (22-26) mmol/L ABG O2 Saturation (95-100) % ABG Base Excess ((-2)-(+3)) mmol/L Sid Test O2 Delivery Device Sodium (136-145) mmol/L Potassium (3.5-5.1) mmol/L Chloride (98-107) mmol/L Carbon Dioxide (21-32) mmol/L Anion Gap (7-13) mEq/L BUN (7-18) mg/dL Creatinine (0.70-1.30) mg/dL Est Cr Clr Drug Dosing mL/min Estimated GFR (MDRD) BUN/Creatinine Ratio (No establ ref range) Glucose (70-99) mg/dL POC Glucose > 600 H* (70-99) mg/dL Lactic Acid (0.4-2.0) mmol/L Calcium (8.5-10.1) mg/dL Magnesium (1.8-2.4) mg/dL Total Bilirubin (0.2-1.0) mg/dL AST (15-37) U/L ALT (16-63) U/L Alkaline Phosphatase (46-116) U/L Troponin I (0.000-0.056) ng/mL B-Natriuretic Peptide (0-100) pg/ml Total Protein (6.4-8.2) g/dL Albumin (3.4-5.0) g/dL Globulin Albumin/Globulin Ratio Urine Color Yellow (YELLOW) Urine Appearance Slightly cloudy (CLEAR) Urine pH 5.0 (5.0-9.0) Ur Specific Davin 1.015 (1.005-1.030) Urine Protein Trace H (NEGATIVE) Urine Glucose (UA) 500 H (NEGATIVE) Urine Ketones Trace H (NEGATIVE) Urine Occult Blood Trace-intact H (NEGATIVE) Urine Nitrite Negative (NEGATIVE) Urine Bilirubin Negative (NEGATIVE) Urine Urobilinogen 0.2 (0.2-1.0) mg/dL Ur Leukocyte Esterase Negative (NEGATIVE) Urine RBC 0-5 /HPF Urine WBC 0-5 (0-5/HPF) /HPF Ur Epithelial Cells Rare (NOT SEEN) /HPF Amorphous Sediment Few (NOT SEEN) /HPF Urine Bacteria Rare (0-FEW/HPF) /HPF Urine Mucus Rare (NOT SEEN) /LPF Ketones Influenza Type A RNA Negative (NEGATIVE) Influenza Type B RNA Negative (NEGATIVE) SARS-CoV-2 RNA ([place]) Negative (NEGATIVE) 10/22/20 10/22/20 10/22/20 Range/Units 13:46 13:49 13:49 WBC 4.4 L (5.0-10.0) 10^3/uL Corrected WBC 4.0 RBC 3.13 L (4.6-6.2) 10^6/uL Hgb 8.8 L (14.0-18.0) g/dL Hct 28.0 L (40.0-54.0) % MCV 89.5 D (80-100) fL MCH 28.1 (27.0-34.0) pg MCHC 31.4 L (33.0-35.0) g/dL Plt Count 402 (150-450) 10^3/uL Neut % (Auto) 36.2 L (42.2-75.2) % Lymph % (Auto) 47.1 (20.5-50.1) % [place] % (Auto) 14.2 H (2-8) % Eos % (Auto) 0.9 L (1.0-3.0) % Baso % (Auto) 1.6 H (0.0-1.0) % Add Manual Diff Yes Neutrophils % (Manual) 34 L (42-75) % Band Neutrophils % 10 % Lymphocytes % (Manual) 45 (20-50) % Monocytes % (Manual) 11 H (2-8) % Eosinophils % (Manual) (1-3) % Basophils % (Manual) Nucleated RBCs 5 /100WBC Poikilocytosis Basophilic Stippling Anisocytosis Target Cells PT (9.0-12.0) SEC INR (0.9-1.2) ABG pH 7.36 (7.35-7.45) ABG pCO2 31 L (35-45) mmHg ABG pO2 98 (70-100) mmHg ABG HCO3 16.6 L (22-26) mmol/L ABG O2 Saturation 97 (95-100) % ABG Base Excess -8 L ((-2)-(+3)) mmol/L Sid Test Positive O2 Delivery Device Room air Sodium 126 L (136-145) mmol/L Potassium 5.3 H (3.5-5.1) mmol/L Chloride 83 L (98-107) mmol/L Carbon Dioxide 19 L D (21-32) mmol/L Anion Gap 29.3 H (7-13) mEq/L BUN 69 H (7-18) mg/dL Creatinine 2.79 H D (0.70-1.30) mg/dL Est Cr Clr Drug Dosing 21.53 mL/min Estimated GFR (MDRD) 22 BUN/Creatinine Ratio 24.7 (No establ ref range) Glucose 877 H* (70-99) mg/dL POC Glucose (70-99) mg/dL Lactic Acid (0.4-2.0) mmol/L Calcium 9.3 (8.5-10.1) mg/dL Magnesium 2.7 H (1.8-2.4) mg/dL Total Bilirubin 2.0 H (0.2-1.0) mg/dL AST 247 H (15-37) U/L ALT 450 H (16-63) U/L Alkaline Phosphatase 276 H (46-116) U/L Troponin I 0.045 (0.000-0.056) ng/mL B-Natriuretic Peptide (0-100) pg/ml Total Protein 8.4 H (6.4-8.2) g/dL Albumin 3.1 L (3.4-5.0) g/dL Globulin 5.3 Albumin/Globulin Ratio 0.58 Urine Color (YELLOW) Urine Appearance (CLEAR) Urine pH (5.0-9.0) Ur Specific [place]in (1.005-1.030) Urine Protein (NEGATIVE) Urine Glucose (UA) (NEGATIVE) Urine Ketones (NEGATIVE) Urine Occult Blood (NEGATIVE) Urine Nitrite (NEGATIVE) Urine Bilirubin (NEGATIVE) Urine Urobilinogen (0.2-1.0) mg/dL Ur Leukocyte Esterase (NEGATIVE) Urine RBC /HPF Urine WBC (0-5/HPF) /HPF Ur Epithelial Cells (NOT SEEN) /HPF Amorphous Sediment (NOT SEEN) /HPF Urine Bacteria (0-FEW/HPF) /HPF Urine Mucus (NOT SEEN) /LPF Ketones Large-80 mg/dl Influenza Type A RNA (NEGATIVE) Influenza Type B RNA (NEGATIVE) SARS-CoV-2 RNA ([place]) (NEGATIVE) 10/22/20 10/22/20 10/22/20 Range/Units 13:49 13:49 13:49 WBC (5.0-10.0) 10^3/uL Corrected WBC RBC (4.6-6.2) 10^6/uL Hgb (14.0-18.0) g/dL Hct (40.0-54.0) % MCV (80-100) fL MCH (27.0-34.0) pg MCHC (33.0-35.0) g/dL Plt Count (150-450) 10^3/uL Neut % (Auto) (42.2-75.2) % Lymph % (Auto) (20.5-50.1) % [place] % (Auto) (2-8) % Eos % (Auto) (1.0-3.0) % Baso % (Auto) (0.0-1.0) % Add Manual Diff Neutrophils % (Manual) (42-75) % Band Neutrophils % % Lymphocytes % (Manual) (20-50) % Monocytes % (Manual) (2-8) % Eosinophils % (Manual) (1-3) % Basophils % (Manual) Nucleated RBCs /100WBC Poikilocytosis Basophilic Stippling Anisocytosis Target Cells PT 17.4 H D (9.0-12.0) SEC INR 1.7 H (0.9-1.2) ABG pH (7.35-7.45) ABG pCO2 (35-45) mmHg ABG pO2 (70-100) mmHg ABG HCO3 (22-26) mmol/L ABG O2 Saturation (95-100) % ABG Base Excess ((-2)-(+3)) mmol/L Sid Test O2 Delivery Device Sodium (136-145) mmol/L Potassium (3.5-5.1) mmol/L Chloride (98-107) mmol/L Carbon Dioxide (21-32) mmol/L Anion Gap (7-13) mEq/L BUN (7-18) mg/dL Creatinine (0.70-1.30) mg/dL Est Cr Clr Drug Dosing mL/min Estimated GFR (MDRD) BUN/Creatinine Ratio (No establ ref range) Glucose (70-99) mg/dL POC Glucose (70-99) mg/dL Lactic Acid 9.4 H* (0.4-2.0) mmol/L Calcium (8.5-10.1) mg/dL Magnesium (1.8-2.4) mg/dL Total Bilirubin (0.2-1.0) mg/dL AST (15-37) U/L ALT (16-63) U/L Alkaline Phosphatase (46-116) U/L Troponin I (0.000-0.056) ng/mL B-Natriuretic Peptide 1320 H (0-100) pg/ml Total Protein (6.4-8.2) g/dL Albumin (3.4-5.0) g/dL Globulin Albumin/Globulin Ratio Urine Color (YELLOW) Urine Appearance (CLEAR) Urine pH (5.0-9.0) Ur Specific [place] (1.005-1.030) Urine Protein (NEGATIVE) Urine Glucose (UA) (NEGATIVE) Urine Ketones (NEGATIVE) Urine Occult Blood (NEGATIVE) Urine Nitrite (NEGATIVE) Urine Bilirubin (NEGATIVE) Urine Urobilinogen (0.2-1.0) mg/dL Ur Leukocyte Esterase (NEGATIVE) Urine RBC /HPF Urine WBC (0-5/HPF) /HPF Ur Epithelial Cells (NOT SEEN) /HPF Amorphous Sediment (NOT SEEN) /HPF Urine Bacteria (0-FEW/HPF) /HPF Urine Mucus (NOT SEEN) /LPF Ketones Influenza Type A RNA (NEGATIVE) Influenza Type B RNA (NEGATIVE) SARS-CoV-2 RNA ([place]) (NEGATIVE) 10/22/20 10/22/20 10/22/20 Range/Units 15:04 17:13 18:17 WBC (5.0-10.0) 10^3/uL Corrected WBC RBC (4.6-6.2) 10^6/uL Hgb (14.0-18.0) g/dL Hct (40.0-54.0) % MCV (80-100) fL MCH (27.0-34.0) pg MCHC (33.0-35.0) g/dL Plt Count (150-450) 10^3/uL Neut % (Auto) (42.2-75.2) % Lymph % (Auto) (20.5-50.1) % [place] % (Auto) (2-8) % Eos % (Auto) (1.0-3.0) % Baso % (Auto) (0.0-1.0) % Add Manual Diff Neutrophils % (Manual) (42-75) % Band Neutrophils % % Lymphocytes % (Manual) (20-50) % Monocytes % (Manual) (2-8) % Eosinophils % (Manual) (1-3) % Basophils % (Manual) Nucleated RBCs /100WBC Poikilocytosis Basophilic Stippling Anisocytosis Target Cells PT (9.0-12.0) SEC INR (0.9-1.2) ABG pH (7.35-7.45) ABG pCO2 (35-45) mmHg ABG pO2 (70-100) mmHg ABG HCO3 (22-26) mmol/L ABG O2 Saturation (95-100) % ABG Base Excess ((-2)-(+3)) mmol/L Sid Test O2 Delivery Device Sodium (136-145) mmol/L Potassium (3.5-5.1) mmol/L Chloride (98-107) mmol/L Carbon Dioxide (21-32) mmol/L Anion Gap (7-13) mEq/L BUN (7-18) mg/dL Creatinine (0.70-1.30) mg/dL Est Cr Clr Drug Dosing mL/min Estimated GFR (MDRD) BUN/Creatinine Ratio (No establ ref range) Glucose (70-99) mg/dL POC Glucose > 600 H* > 600 H* > 600 H* (70-99) mg/dL Lactic Acid (0.4-2.0) mmol/L Calcium (8.5-10.1) mg/dL Magnesium (1.8-2.4) mg/dL Total Bilirubin (0.2-1.0) mg/dL AST (15-37) U/L ALT (16-63) U/L Alkaline Phosphatase (46-116) U/L Troponin I (0.000-0.056) ng/mL B-Natriuretic Peptide (0-100) pg/ml Total Protein (6.4-8.2) g/dL Albumin (3.4-5.0) g/dL Globulin Albumin/Globulin Ratio Urine Color (YELLOW) Urine Appearance (CLEAR) Urine pH (5.0-9.0) Ur Specific [place] (1.005-1.030) Urine Protein (NEGATIVE) Urine Glucose (UA) (NEGATIVE) Urine Ketones (NEGATIVE) Urine Occult Blood (NEGATIVE) Urine Nitrite (NEGATIVE) Urine Bilirubin (NEGATIVE) Urine Urobilinogen (0.2-1.0) mg/dL Ur Leukocyte Esterase (NEGATIVE) Urine RBC /HPF Urine WBC (0-5/HPF) /HPF Ur Epithelial Cells (NOT SEEN) /HPF Amorphous Sediment (NOT SEEN) /HPF Urine Bacteria (0-FEW/HPF) /HPF Urine Mucus (NOT SEEN) /LPF Ketones Influenza Type A RNA (NEGATIVE) Influenza Type B RNA (NEGATIVE) SARS-CoV-2 RNA ([place]) (NEGATIVE) 10/22/20 10/22/20 10/22/20 Range/Units 20:25 20:25 21:18 WBC (5.0-10.0) 10^3/uL Corrected WBC RBC (4.6-6.2) 10^6/uL Hgb (14.0-18.0) g/dL Hct (40.0-54.0) % MCV (80-100) fL MCH (27.0-34.0) pg MCHC (33.0-35.0) g/dL Plt Count (150-450) 10^3/uL Neut % (Auto) (42.2-75.2) % Lymph % (Auto) (20.5-50.1) % [place] % (Auto) (2-8) % Eos % (Auto) (1.0-3.0) % Baso % (Auto) (0.0-1.0) % Add Manual Diff Neutrophils % (Manual) (42-75) % Band Neutrophils % % Lymphocytes % (Manual) (20-50) % Monocytes % (Manual) (2-8) % Eosinophils % (Manual) (1-3) % Basophils % (Manual) Nucleated RBCs /100WBC Poikilocytosis Basophilic Stippling Anisocytosis Target Cells PT (9.0-12.0) SEC INR (0.9-1.2) ABG pH (7.35-7.45) ABG pCO2 (35-45) mmHg ABG pO2 (70-100) mmHg ABG HCO3 (22-26) mmol/L ABG O2 Saturation (95-100) % ABG Base Excess ((-2)-(+3)) mmol/L Sid Test O2 Delivery Device Sodium 132 L (136-145) mmol/L Potassium 3.7 D (3.5-5.1) mmol/L Chloride 91 L (98-107) mmol/L Carbon Dioxide 23 (21-32) mmol/L Anion Gap 21.7 H (7-13) mEq/L BUN 64 H (7-18) mg/dL Creatinine 2.18 H (0.70-1.30) mg/dL Est Cr Clr Drug Dosing 26.00 mL/min Estimated GFR (MDRD) 30 BUN/Creatinine Ratio 29.4 (No establ ref range) Glucose 573 H* (70-99) mg/dL POC Glucose 483 H* (70-99) mg/dL Lactic Acid 3.8 H* (0.4-2.0) mmol/L Calcium 8.4 L (8.5-10.1) mg/dL Magnesium (1.8-2.4) mg/dL Total Bilirubin 1.2 H (0.2-1.0) mg/dL AST 362 H (15-37) U/L ALT 565 H (16-63) U/L Alkaline Phosphatase 259 H (46-116) U/L Troponin I (0.000-0.056) ng/mL B-Natriuretic Peptide (0-100) pg/ml Total Protein 7.3 (6.4-8.2) g/dL Albumin 2.9 L (3.4-5.0) g/dL Globulin 4.4 Albumin/Globulin Ratio 0.66 Urine Color (YELLOW) Urine Appearance (CLEAR) Urine pH (5.0-9.0) Ur Specific Davin (1.005-1.030) Urine Protein (NEGATIVE) Urine Glucose (UA) (NEGATIVE) Urine Ketones (NEGATIVE) Urine Occult Blood (NEGATIVE) Urine Nitrite (NEGATIVE) Urine Bilirubin (NEGATIVE) Urine Urobilinogen (0.2-1.0) mg/dL Ur Leukocyte Esterase (NEGATIVE) Urine RBC /HPF Urine WBC (0-5/HPF) /HPF Ur Epithelial Cells (NOT SEEN) /HPF Amorphous Sediment (NOT SEEN) /HPF Urine Bacteria (0-FEW/HPF) /HPF Urine Mucus (NOT SEEN) /LPF Ketones Influenza Type A RNA (NEGATIVE) Influenza Type B RNA (NEGATIVE) SARS-CoV-2 RNA ([place]) (NEGATIVE) 10/22/20 10/22/20 10/23/20 Range/Units 22:27 23:39 00:40 WBC (5.0-10.0) 10^3/uL Corrected WBC RBC (4.6-6.2) 10^6/uL Hgb (14.0-18.0) g/dL Hct (40.0-54.0) % MCV (80-100) fL MCH (27.0-34.0) pg MCHC (33.0-35.0) g/dL Plt Count (150-450) 10^3/uL Neut % (Auto) (42.2-75.2) % Lymph % (Auto) (20.5-50.1) % [place] % (Auto) (2-8) % Eos % (Auto) (1.0-3.0) % Baso % (Auto) (0.0-1.0) % Add Manual Diff Neutrophils % (Manual) (42-75) % Band Neutrophils % % Lymphocytes % (Manual) (20-50) % Monocytes % (Manual) (2-8) % Eosinophils % (Manual) (1-3) % Basophils % (Manual) Nucleated RBCs /100WBC Poikilocytosis Basophilic Stippling Anisocytosis Target Cells PT (9.0-12.0) SEC INR (0.9-1.2) ABG pH (7.35-7.45) ABG pCO2 (35-45) mmHg ABG pO2 (70-100) mmHg ABG HCO3 (22-26) mmol/L ABG O2 Saturation (95-100) % ABG Base Excess ((-2)-(+3)) mmol/L Sid Test O2 Delivery Device Sodium (136-145) mmol/L Potassium (3.5-5.1) mmol/L Chloride (98-107) mmol/L Carbon Dioxide (21-32) mmol/L Anion Gap (7-13) mEq/L BUN (7-18) mg/dL Creatinine (0.70-1.30) mg/dL Est Cr Clr Drug Dosing mL/min Estimated GFR (MDRD) BUN/Creatinine Ratio (No establ ref range) Glucose (70-99) mg/dL POC Glucose 377 H 308 H 222 H (70-99) mg/dL Lactic Acid (0.4-2.0) mmol/L Calcium (8.5-10.1) mg/dL Magnesium (1.8-2.4) mg/dL Total Bilirubin (0.2-1.0) mg/dL AST (15-37) U/L ALT (16-63) U/L Alkaline Phosphatase (46-116) U/L Troponin I (0.000-0.056) ng/mL B-Natriuretic Peptide (0-100) pg/ml Total Protein (6.4-8.2) g/dL Albumin (3.4-5.0) g/dL Globulin Albumin/Globulin Ratio Urine Color (YELLOW) Urine Appearance (CLEAR) Urine pH (5.0-9.0) Ur Specific Davin (1.005-1.030) Urine Protein (NEGATIVE) Urine Glucose (UA) (NEGATIVE) Urine Ketones (NEGATIVE) Urine Occult Blood (NEGATIVE) Urine Nitrite (NEGATIVE) Urine Bilirubin (NEGATIVE) Urine Urobilinogen (0.2-1.0) mg/dL Ur Leukocyte Esterase (NEGATIVE) Urine RBC /HPF Urine WBC (0-5/HPF) /HPF Ur Epithelial Cells (NOT SEEN) /HPF Amorphous Sediment (NOT SEEN) /HPF Urine Bacteria (0-FEW/HPF) /HPF Urine Mucus (NOT SEEN) /LPF Ketones Influenza Type A RNA (NEGATIVE) Influenza Type B RNA (NEGATIVE) SARS-CoV-2 RNA ([place]) (NEGATIVE) 10/23/20 10/23/20 10/23/20 Range/Units 01:42 02:50 03:26 WBC (5.0-10.0) 10^3/uL Corrected WBC RBC (4.6-6.2) 10^6/uL Hgb (14.0-18.0) g/dL Hct (40.0-54.0) % MCV (80-100) fL MCH (27.0-34.0) pg MCHC (33.0-35.0) g/dL Plt Count (150-450) 10^3/uL Neut % (Auto) (42.2-75.2) % Lymph % (Auto) (20.5-50.1) % [place] % (Auto) (2-8) % Eos % (Auto) (1.0-3.0) % Baso % (Auto) (0.0-1.0) % Add Manual Diff Neutrophils % (Manual) (42-75) % Band Neutrophils % % Lymphocytes % (Manual) (20-50) % Monocytes % (Manual) (2-8) % Eosinophils % (Manual) (1-3) % Basophils % (Manual) Nucleated RBCs /100WBC Poikilocytosis Basophilic Stippling Anisocytosis Target Cells PT (9.0-12.0) SEC INR (0.9-1.2) ABG pH (7.35-7.45) ABG pCO2 (35-45) mmHg ABG pO2 (70-100) mmHg ABG HCO3 (22-26) mmol/L ABG O2 Saturation (95-100) % ABG Base Excess ((-2)-(+3)) mmol/L Sid Test O2 Delivery Device Sodium (136-145) mmol/L Potassium (3.5-5.1) mmol/L Chloride (98-107) mmol/L Carbon Dioxide (21-32) mmol/L Anion Gap (7-13) mEq/L BUN (7-18) mg/dL Creatinine (0.70-1.30) mg/dL Est Cr Clr Drug Dosing mL/min Estimated GFR (MDRD) BUN/Creatinine Ratio (No establ ref range) Glucose (70-99) mg/dL POC Glucose 189 H 117 H (70-99) mg/dL Lactic Acid (0.4-2.0) mmol/L Calcium (8.5-10.1) mg/dL Magnesium (1.8-2.4) mg/dL Total Bilirubin (0.2-1.0) mg/dL AST (15-37) U/L ALT (16-63) U/L Alkaline Phosphatase (46-116) U/L Troponin I (0.000-0.056) ng/mL B-Natriuretic Peptide (0-100) pg/ml Total Protein (6.4-8.2) g/dL Albumin (3.4-5.0) g/dL Globulin Albumin/Globulin Ratio Urine Color Yellow (YELLOW) Urine Appearance Slightly cloudy (CLEAR) Urine pH 5.5 (5.0-9.0) Ur Specific Davin 1.015 (1.005-1.030) Urine Protein 30 H (NEGATIVE) Urine Glucose (UA) 500 H (NEGATIVE) Urine Ketones Negative (NEGATIVE) Urine Occult Blood Small H (NEGATIVE) Urine Nitrite Negative (NEGATIVE) Urine Bilirubin Negative (NEGATIVE) Urine Urobilinogen 0.2 (0.2-1.0) mg/dL Ur Leukocyte Esterase Negative (NEGATIVE) Urine RBC 0-5 /HPF Urine WBC 0-5 (0-5/HPF) /HPF Ur Epithelial Cells Rare (NOT SEEN) /HPF Amorphous Sediment Moderate (NOT SEEN) /HPF Urine Bacteria Few (0-FEW/HPF) /HPF Urine Mucus Not seen (NOT SEEN) /LPF Ketones Influenza Type A RNA (NEGATIVE) Influenza Type B RNA (NEGATIVE) SARS-CoV-2 RNA ([place]) (NEGATIVE) 10/23/20 10/23/20 10/23/20 Range/Units 05:02 05:45 06:06 WBC 3.1 L (5.0-10.0) 10^3/uL Corrected WBC 2.0 RBC 2.82 L (4.6-6.2) 10^6/uL Hgb 8.0 L (14.0-18.0) g/dL Hct 23.9 L (40.0-54.0) % MCV 84.8 D (80-100) fL MCH 28.4 (27.0-34.0) pg MCHC 33.5 (33.0-35.0) g/dL Plt Count 295 D (150-450) 10^3/uL Neut % (Auto) 43.6 (42.2-75.2) % Lymph % (Auto) 33.2 (20.5-50.1) % [place] % (Auto) 22.0 H (2-8) % Eos % (Auto) 0.6 L (1.0-3.0) % Baso % (Auto) 0.6 (0.0-1.0) % Add Manual Diff Yes Neutrophils % (Manual) 28 L (42-75) % Band Neutrophils % 15 % Lymphocytes % (Manual) 35 (20-50) % Monocytes % (Manual) 17 H (2-8) % Eosinophils % (Manual) 3 (1-3) % Basophils % (Manual) 2 Nucleated RBCs 8 /100WBC Poikilocytosis 1+ slight Basophilic Stippling Few Anisocytosis 1+ slight Target Cells 1+ slight PT (9.0-12.0) SEC INR (0.9-1.2) ABG pH (7.35-7.45) ABG pCO2 (35-45) mmHg ABG pO2 (70-100) mmHg ABG HCO3 (22-26) mmol/L ABG O2 Saturation (95-100) % ABG Base Excess ((-2)-(+3)) mmol/L Sid Test O2 Delivery Device Sodium (136-145) mmol/L Potassium (3.5-5.1) mmol/L Chloride (98-107) mmol/L Carbon Dioxide (21-32) mmol/L Anion Gap (7-13) mEq/L BUN (7-18) mg/dL Creatinine (0.70-1.30) mg/dL Est Cr Clr Drug Dosing mL/min Estimated GFR (MDRD) BUN/Creatinine Ratio (No establ ref range) Glucose (70-99) mg/dL POC Glucose 59 L 138 H (70-99) mg/dL Lactic Acid (0.4-2.0) mmol/L Calcium (8.5-10.1) mg/dL Magnesium (1.8-2.4) mg/dL Total Bilirubin (0.2-1.0) mg/dL AST (15-37) U/L ALT (16-63) U/L Alkaline Phosphatase (46-116) U/L Troponin I (0.000-0.056) ng/mL B-Natriuretic Peptide (0-100) pg/ml Total Protein (6.4-8.2) g/dL Albumin (3.4-5.0) g/dL Globulin Albumin/Globulin Ratio Urine Color (YELLOW) Urine Appearance (CLEAR) Urine pH (5.0-9.0) Ur Specific [place] (1.005-1.030) Urine Protein (NEGATIVE) Urine Glucose (UA) (NEGATIVE) Urine Ketones (NEGATIVE) Urine Occult Blood (NEGATIVE) Urine Nitrite (NEGATIVE) Urine Bilirubin (NEGATIVE) Urine Urobilinogen (0.2-1.0) mg/dL Ur Leukocyte Esterase (NEGATIVE) Urine RBC /HPF Urine WBC (0-5/HPF) /HPF Ur Epithelial Cells (NOT SEEN) /HPF Amorphous Sediment (NOT SEEN) /HPF Urine Bacteria (0-FEW/HPF) /HPF Urine Mucus (NOT SEEN) /LPF Ketones Influenza Type A RNA (NEGATIVE) Influenza Type B RNA (NEGATIVE) SARS-CoV-2 RNA ([place]) (NEGATIVE) 10/23/20 10/23/20 10/23/20 Range/Units 06:06 06:06 06:06 WBC (5.0-10.0) 10^3/uL Corrected WBC RBC (4.6-6.2) 10^6/uL Hgb (14.0-18.0) g/dL Hct (40.0-54.0) % MCV (80-100) fL MCH (27.0-34.0) pg MCHC (33.0-35.0) g/dL Plt Count (150-450) 10^3/uL Neut % (Auto) (42.2-75.2) % Lymph % (Auto) (20.5-50.1) % [place] % (Auto) (2-8) % Eos % (Auto) (1.0-3.0) % Baso % (Auto) (0.0-1.0) % Add Manual Diff Neutrophils % (Manual) (42-75) % Band Neutrophils % % Lymphocytes % (Manual) (20-50) % Monocytes % (Manual) (2-8) % Eosinophils % (Manual) (1-3) % Basophils % (Manual) Nucleated RBCs /100WBC Poikilocytosis Basophilic Stippling Anisocytosis Target Cells PT 14.4 H (9.0-12.0) SEC INR 1.4 H (0.9-1.2) ABG pH (7.35-7.45) ABG pCO2 (35-45) mmHg ABG pO2 (70-100) mmHg ABG HCO3 (22-26) mmol/L ABG O2 Saturation (95-100) % ABG Base Excess ((-2)-(+3)) mmol/L Sid Test O2 Delivery Device Sodium 139 (136-145) mmol/L Potassium 3.5 (3.5-5.1) mmol/L Chloride 99 (98-107) mmol/L Carbon Dioxide 33 H (21-32) mmol/L Anion Gap 10.5 (7-13) mEq/L BUN 50 H (7-18) mg/dL Creatinine 1.65 H (0.70-1.30) mg/dL Est Cr Clr Drug Dosing 34.36 mL/min Estimated GFR (MDRD) 41 BUN/Creatinine Ratio 30.3 (No establ ref range) Glucose 128 H (70-99) mg/dL POC Glucose (70-99) mg/dL Lactic Acid 1.4 (0.4-2.0) mmol/L Calcium 8.4 L (8.5-10.1) mg/dL Magnesium (1.8-2.4) mg/dL Total Bilirubin 1.1 H (0.2-1.0) mg/dL AST 284 H (15-37) U/L ALT 483 H (16-63) U/L Alkaline Phosphatase 235 H (46-116) U/L Troponin I (0.000-0.056) ng/mL B-Natriuretic Peptide (0-100) pg/ml Total Protein 6.8 (6.4-8.2) g/dL Albumin 2.6 L (3.4-5.0) g/dL Globulin 4.2 Albumin/Globulin Ratio 0.62 Urine Color (YELLOW) Urine Appearance (CLEAR) Urine pH (5.0-9.0) Ur Specific [place] (1.005-1.030) Urine Protein (NEGATIVE) Urine Glucose (UA) (NEGATIVE) Urine Ketones (NEGATIVE) Urine Occult Blood (NEGATIVE) Urine Nitrite (NEGATIVE) Urine Bilirubin (NEGATIVE) Urine Urobilinogen (0.2-1.0) mg/dL Ur Leukocyte Esterase (NEGATIVE) Urine RBC /HPF Urine WBC (0-5/HPF) /HPF Ur Epithelial Cells (NOT SEEN) /HPF Amorphous Sediment (NOT SEEN) /HPF Urine Bacteria (0-FEW/HPF) /HPF Urine Mucus (NOT SEEN) /LPF Ketones Influenza Type A RNA (NEGATIVE) Influenza Type B RNA (NEGATIVE) SARS-CoV-2 RNA ([place]) (NEGATIVE) 10/23/20 Range/Units 07:26 WBC (5.0-10.0) 10^3/uL Corrected WBC RBC (4.6-6.2) 10^6/uL Hgb (14.0-18.0) g/dL Hct (40.0-54.0) % MCV (80-100) fL MCH (27.0-34.0) pg MCHC (33.0-35.0) g/dL Plt Count (150-450) 10^3/uL Neut % (Auto) (42.2-75.2) % Lymph % (Auto) (20.5-50.1) % [place] % (Auto) (2-8) % Eos % (Auto) (1.0-3.0) % Baso % (Auto) (0.0-1.0) % Add Manual Diff Neutrophils % (Manual) (42-75) % Band Neutrophils % % Lymphocytes % (Manual) (20-50) % Monocytes % (Manual) (2-8) % Eosinophils % (Manual) (1-3) % Basophils % (Manual) Nucleated RBCs /100WBC Poikilocytosis Basophilic Stippling Anisocytosis Target Cells PT (9.0-12.0) SEC INR (0.9-1.2) ABG pH (7.35-7.45) ABG pCO2 (35-45) mmHg ABG pO2 (70-100) mmHg ABG HCO3 (22-26) mmol/L ABG O2 Saturation (95-100) % ABG Base Excess ((-2)-(+3)) mmol/L Sid Test O2 Delivery Device Sodium (136-145) mmol/L Potassium (3.5-5.1) mmol/L Chloride (98-107) mmol/L Carbon Dioxide (21-32) mmol/L Anion Gap (7-13) mEq/L BUN (7-18) mg/dL Creatinine (0.70-1.30) mg/dL Est Cr Clr Drug Dosing mL/min Estimated GFR (MDRD) BUN/Creatinine Ratio (No establ ref range) Glucose (70-99) mg/dL POC Glucose 106 H (70-99) mg/dL Lactic Acid (0.4-2.0) mmol/L Calcium (8.5-10.1) mg/dL Magnesium (1.8-2.4) mg/dL Total Bilirubin (0.2-1.0) mg/dL AST (15-37) U/L ALT (16-63) U/L Alkaline Phosphatase (46-116) U/L Troponin I (0.000-0.056) ng/mL B-Natriuretic Peptide (0-100) pg/ml Total Protein (6.4-8.2) g/dL Albumin (3.4-5.0) g/dL Globulin Albumin/Globulin Ratio Urine Color (YELLOW) Urine Appearance (CLEAR) Urine pH (5.0-9.0) Ur Specific Davin (1.005-1.030) Urine Protein (NEGATIVE) Urine Glucose (UA) (NEGATIVE) Urine Ketones (NEGATIVE) Urine Occult Blood (NEGATIVE) Urine Nitrite (NEGATIVE) Urine Bilirubin (NEGATIVE) Urine Urobilinogen (0.2-1.0) mg/dL Ur Leukocyte Esterase (NEGATIVE) Urine RBC /HPF Urine WBC (0-5/HPF) /HPF Ur Epithelial Cells (NOT SEEN) /HPF Amorphous Sediment (NOT SEEN) /HPF Urine Bacteria (0-FEW/HPF) /HPF Urine Mucus (NOT SEEN) /LPF Ketones Influenza Type A RNA (NEGATIVE) Influenza Type B RNA (NEGATIVE) SARS-CoV-2 RNA ([place]) (NEGATIVE) Result Diagrams: 10/23/20 06:06 10/23/20 06:06 Matt Results Last 24 hrs: Microbiology 10/22/20 13:52 Anaerobic Blood Culture - Final Blood - Arterial Line - Abg Sepsis Event Note - Evaluation Sepsis Screening Result: No Definite Risk - Focused Exam Vital Signs: Vital Signs Temp Pulse Resp BP BP Pulse Ox 10/23/20 08:05 98.2 F 91 20 170/83 H 97 10/23/20 04:00 97.8 F 78 14 120/67 98 10/23/20 00:00 97.8 F 86 14 126/57 L 97 - Problem List & Annotations (1) Diabetic ketoacidosis SNOMED Code(s): 797973208, 900615101 Code(s): E11.10 - TYPE 2 DIABETES MELLITUS WITH KETOACIDOSIS WITHOUT COMA Status: Acute Current Visit: Yes Qualifiers: Diabetes mellitus type: type 2 Diabetes mellitus complication detail: without coma Qualified Code(s): E11.10 - Type 2 diabetes mellitus with ketoacidosis without coma (2) Essential thrombocytosis SNOMED Code(s): 663847751 Code(s): D47.3 - ESSENTIAL (HEMORRHAGIC) THROMBOCYTHEMIA Status: Chronic Current Visit: Yes (3) Chronic kidney disease (CKD) SNOMED Code(s): 317384546 Code(s): N18.9 - CHRONIC KIDNEY DISEASE, UNSPECIFIED Status: Chronic Cur rent Visit: Yes (4) Chronic congestive heart failure SNOMED Code(s): 29285984 Code(s): I50.9 - HEART FAILURE, UNSPECIFIED Status: Chronic Current Visit: Yes (5) Essential hypertension SNOMED Code(s): 79608353 Code(s): I10 - ESSENTIAL (PRIMARY) HYPERTENSION Status: Chronic Current Visit: Yes (6) Hyperlipidemia SNOMED Code(s): 18668057 Code(s): E78.5 - HYPERLIPIDEMIA, UNSPECIFIED Status: Chronic Current Visit: Yes (7) Type 2 diabetes mellitus SNOMED Code(s): 28051116 Code(s): E11.9 - TYPE 2 DIABETES MELLITUS WITHOUT COMPLICATIONS Status: Chronic Current Visit: Yes (8) History of recent stroke SNOMED Code(s): 962021075 Code(s): Z86.73 - PRSNL HX OF TIA (TIA), AND CEREB INFRC W/O RESID DEFICITS Status: Acute Current Visit: No - Problem List Review Problem List Initiated/Reviewed/Updated: Yes - My Orders Last 24 Hours: My Active Orders 10/22/20 15:35 Oxygen Therapy [RC] PRN VTE/DVT Education [RC] PER UNIT ROUTINE Resuscitation Status Routine 10/22/20 15:46 Cardiac Monitoring [RC] CONTINUOUS Intake and Output [RC] 06,14,22 Pulse Oximetry [RC] CONTINUOUS Up With Assistance [RC] ASDIRECTED Vital Signs [RC] Q4HR Acetaminophen [TylenoL] 650 mg PO Q4H PRN Ondansetron [Zofran] 4 mg IVPUSH Q6H PRN 10/22/20 15:52 RT Aerosol Therapy [RC] ASDIRECTED 10/22/20 15:54 Dextrose 50% in Water 50 ml IV Q15M PRN Glucagon,Human Recombinant [GlucaGen] 1 mg IM Q15M PRN 10/22/20 16:00 Enoxaparin [Lovenox] 30 mg SUBCUT DAILY 10/22/20 16:34 Sodium Chloride 0.9% [Saline Flush] 10 ml FLUSH ASDIRECTED PRN Peripheral IV Insertion Adult [OM.PC] Routine 10/22/20 16:35 Peripheral IV Care [RC] 08,20 10/22/20 Dinner Regular Diet [DIET] 10/22/20 18:00 Ampicillin/Sulbactam Na [Unasyn] 3 gm Sodium Chloride 0.9% [Normal Saline] 100 ml IV Q12H 10/22/20 21:00 Insulin Glarg,Human.Rec.Analog [LantUS] 14 unit SUBCUT BEDTIME atenoloL [Tenormin] 100 mg PO BID cloNIDine [Catapres] 0.2 mg PO BID 10/23/20 03:45 Lactated Ringers [Ringers, Lactated] 1,000 ml IV ASDIRECTED 10/23/20 06:00 Omeprazole 20 mg PO ACBREAKFAST 10/23/20 09:00 URINALYSIS W/O MICROSCOPIC [UA W/O MICROSCOPIC] [URIN] Routine Aspirin [Halfprin] 81 mg PO DAILY Folic Acid 1 mg PO DAILY Furosemide [Lasix] 40 mg PO DAILY Ruxolitinib Phosphate [Jakafi] 20 mg PO BID - Plan Plan:: Assessment: 1. Diabetic ketoacidosis, resolved 2. Acute UTI, leading to #1 3. Type 2 diabetes mellitus, insulin-dependent, with renal complication: Creatinine is improving nicely, his GFR has improved 4. Chronic kidney disease, stage II-III, from the past records I have access to it looks like his baseline creatinine is between 1.5 and 1.8 5. Resistant essential hypertension 6. Essential thrombocytosis and myeloproliferative disorder 7. Chronic congestive heart failure Plan: 1. Insulin drip is now stopped, he is not on any mealtime insulin at home, so we will continue to check 4 times daily glucoses for the next 24 hours, we will not do any sliding scale correction unless it is significantly out of range 2. Continue Unasyn IV for a total of at least 48 hours 3. Continue to monitor urine output, will check his kidney function again in the a.m. 4. His hemoglobin today was 8.0, but his hematocrit was 23, leading to suggest that this was most likely dilutional. I did discuss this with his staff mechanical engineer in [place], he gave me the guidance that unless his hemoglobin dropped to 7 or below, he would not transfuse him at this time. Ramón has had numerous transfusions recently due to his myeloproliferative disorder 5. Continue VTE prophylaxis with subcu Lovenox 6. Anticipate possible discharge home tomorrow, if he is still feeling well, and performing all of his ADLs independently
[2020-10-23] MEDS: Atenolol 50 MG Tab PO SCH ×2 (09:49→21:58)
[2020-10-23] MEDS: cloNIDine 0.1 MG Tab PO SCH ×2 (09:49→21:57)
[2020-10-23] MEDS: Furosemide 40 MG Tab PO SCH (09:49)
[2020-10-23] MEDS: Folic Acid 1 MG Tab PO SCH (09:49)
[2020-10-23] MEDS: Aspirin 81 MG Tab.EC PO SCH (09:49)
[2020-10-23] MEDS: Enoxaparin 30 MG/0.3 ML Syringe SUBCUT SCH (09:50)
[2020-10-23] MEDS: RUXOLITINIB PO SCH ×2 (10:05→21:58)
[2020-10-23] MEDS: Insulin Glarg,Human.Rec.Analog 100 Unit/ML SUBCUT SCH (21:59)
[2020-10-24] MEDS: Omeprazole 20 MG Cap.CR PO SCH (05:14)
[2020-10-24] MEDS: Ampicillin/Sulbactam Na 3 GM in Sodium Chloride 0.9% 100 ML IV SCH (07:28)
[2020-10-24] MEDS: Sodium Chloride 0.9% 10 ML Syringe FLUSH PRN (07:28)
[2020-10-24 07:58] VITALS: BP 179/74; PULSE 72
[2020-10-24] MEDS: Enoxaparin 30 MG/0.3 ML Syringe SUBCUT SCH (08:50)
[2020-10-24] MEDS: cloNIDine 0.1 MG Tab PO SCH (08:51)
[2020-10-24] MEDS: Aspirin 81 MG Tab.EC PO SCH (08:51)
[2020-10-24] MEDS: Folic Acid 1 MG Tab PO SCH (08:51)
[2020-10-24] MEDS: Furosemide 40 MG Tab PO SCH (08:51)
[2020-10-24] MEDS: Atenolol 50 MG Tab PO SCH (08:51)
[2020-10-24] MEDS: RUXOLITINIB PO SCH (08:52)
[2020-10-24 09:40] LABS: ANION GAP 9.9 mEq/L (7-13)
[2020-10-24] MEDS ORDERED: Potassium Chloride 10 MEQ Tab.ER PO ONE (10:59)
--- NOTE | 2020-10-24 14:32 | PCM.DCSUM1 ---
Discharge Summary - Hospital Course Free Text/Narrative:: Ramón is a 74-year-old man admitted 2 days ago with diabetic ketoacidosis. This was thought to be secondary to a smoldering urinary tract infection that he had going on. He was admitted on IV fluids as well as an insulin drip. He responded very well to the insulin drip and IV fluid titration on hospital day #0. By the morning of hospital day #1, the insulin drip was discontinued, and he was ketone free. He also responded very well to the IV Unasyn, having no further fevers or chills, and was able to ambulate morning of hospital day #1. His significant other and family reported him back to his baseline as far as mentation on the afternoon of hospital day #1, by hospital day #2 was able to independently ambulate, and perform all of his ADLs without assistance. - Discharge Data Discharge Date: 10/24/20 Discharge Disposition: Home, Self-Care 01 Condition: Good - Referral to Home Health Primary Care Physician: PCP Unobtainable - Discharge Diagnosis/Problem(s) (1) Diabetic ketoacidosis SNOMED Code(s): 004858979, 139201344 ICD Code: E11.10 - TYPE 2 DIABETES MELLITUS WITH KETOACIDOSIS WITHOUT COMA Status: Acute Qualifiers: Diabetes mellitus type: type 2 Diabetes mellitus complication detail: without coma Qualified Code(s): E11.10 - Type 2 diabetes mellitus with ketoacidosis without coma (2) Essential thrombocytosis SNOMED Code(s): 621427316 ICD Code: D47.3 - ESSENTIAL (HEMORRHAGIC) THROMBOCYTHEMIA Status: Chronic (3) Chronic kidney disease (CKD) SNOMED Code(s): 475679692 ICD Code: N18.9 - CHRONIC KIDNEY DISEASE, UNSPECIFIED Status: Chronic (4) Chronic congestive heart failure SNOMED Code(s): 17479934 ICD Code: I50.9 - HEART FAILURE, UNSPECIFIED Status: Chronic (5) Essential hypertension SNOMED Code(s): 22724962 ICD Code: I10 - ESSENTIAL (PRIMARY) HYPERTENSION Status: Chronic (6) Hyperlipidemia SNOMED Code(s): 60463712 ICD Code: E78.5 - HYPERLIPIDEMIA, UNSPECIFIED Status: Chronic (7) Type 2 diabetes mellitus SNOMED Code(s): 62496426 ICD Code: E11.9 - TYPE 2 DIABETES MELLITUS WITHOUT COMPLICATIONS Status: Chronic (8) History of recent stroke SNOMED Code(s): 436368501 ICD Code: Z86.73 - PRSNL HX OF TIA (TIA), AND CEREB INFRC W/O RESID DEFICITS Status: Acute - Discharge Plan *PRESCRIPTION DRUG MONITORING PROGRAM REVIEWED*: Not Applicable *COPY OF PRESCRIPTION DRUG MONITORING REPORT IN PATIENT [place]: Not Applicable Prescriptions/Med Rec: Amoxicillin/Clavulanate K [Augmentin 875-125 MG] 1 tab PO BID 7 Days #14 tablet Home Medications: Home Meds Aspirin [Adult Low Dose Aspirin EC] 81 mg PO DAILY 12/29/15 [History] Insulin Aspart [NovoLOG] 3 units SUBCUT TIDMEALS 12/29/15 [History] atenoloL [Atenolol] 100 mg PO BID 12/29/15 [History] cloNIDine [Catapres] 0.2 mg PO BID 11/17/19 [History] Acetaminophen 650 mg PO Q6HR PRN 02/05/20 [History] Furosemide 40 mg PO DAILY 02/05/20 [History] Ondansetron [Zofran] 4 mg PO Q12H PRN 02/05/20 [History] atorvaSTATin [Lipitor] 10 mg PO BEDTIME 02/05/20 [History] Insulin Glarg,Human.Rec.Analog [Lantus] 14 units SQ BEDTIME 06/17/20 [History] hydrALAZINE [Apresoline] 50 mg PO BID 06/17/20 [History] Cholecalciferol (Vitamin D3) [Vitamin D] 1,000 unit PO DAILY 10/22/20 [History] Ergocalciferol (Vitamin D2) [Vitamin D2] 2,000 units PO DAILY 10/22/20 [History] Folic Acid 1 mg PO DAILY 10/22/20 [History] Magnesium Oxide [Mag-Oxide Magnesium] 400 mg PO DAILY 10/22/20 [History] Multivitamin-Min/Iron/FA/Vit K [Multi-Day Plus Minerals Tablet] 1 tab PO BID 10/22/20 [History] Omeprazole 20 mg PO DAILY 10/22/20 [History] Potassium Chloride 20 meq PO BID 10/22/20 [History] Ruxolitinib Phosphate [Jakafi] 20 mg PO BID 10/22/20 [History] Sildenafil Citrate [Viagra] 100 mg PO ASDIRECTED PRN 10/22/20 [History] Amoxicillin/Clavulanate K [Augmentin 875-125 MG] 1 tab PO BID 7 Days #14 tablet 10/24/20 [Rx] Patient Handouts: Hypokalemia, Urinary Tract Infection, Adult, [id number], Hyperglycemia, [id number] Referrals: Virgie Bowers PA [Ordering Only Provider] - - Discharge Summary/Plan Comment DC Time >30 min.: Yes (Greater than 30 minutes spent arranging follow-up, as w ell as communicating) Discharge Summary/Plan Comment: Discharge diagnoses: 1. 74-year-old man with diabetic ketoacidosis 2. Chronic kidney disease 3. Essential thrombocytosis 4. Type 2 diabetes mellitus 5. Essential hypertension Discharge plan: 1. He is discharged home in the care of his significant other. 2. Augmentin, 875 mg p.o. twice daily x10 days 3. His potassium was bordering on the low side day of discharge, he was given some extra oral potassium to take here in the hospital, and his oral potassium at home was refilled. He will need to be seen in 2 days time in the clinic for repeat renal function testing. - Patient Data Vitals - Most Recent: Last Vital Signs Temp 98.7 F 10/24/20 07:57 Pulse 72 10/24/20 08:51 Resp 20 10/24/20 07:57 BP 179/74 H 10/24/20 08:51 Pulse Ox 98 10/24/20 07:57 Weight - Most Recent: 138 lb 3.2 oz I&O - Last 24 hours: Intake & Output 10/23/20 10/24/20 10/24/20 22:59 06:59 14:59 Intake Total 300 300 500 Output Total 900 800 100 Balance -600 -500 400 Lab Results - Last 24 hrs: Laboratory Results - last 24 hr 10/23/20 10/23/20 10/24/20 Range/Units 16:43 20:37 07:44 WBC (5.0-10.0) 10^3/uL RBC (4.6-6.2) 10^6/uL Hgb (14.0-18.0) g/dL Hct (40.0-54.0) % MCV (80-100) fL MCH (27.0-34.0) pg MCHC (33.0-35.0) g/dL Plt Count (150-450) 10^3/uL Neut % (Auto) (42.2-75.2) % Lymph % (Auto) (20.5-50.1) % [place] % (Auto) (2-8) % Eos % (Auto) (1.0-3.0) % Baso % (Auto) (0.0-1.0) % Add Manual Diff Neutrophils % (Manual) (42-75) % Band Neutrophils % % Lymphocytes % (Manual) (20-50) % Monocytes % (Manual) (2-8) % Eosinophils % (Manual) (1-3) % Metamyelocytes % Myelocytes % Poikilocytosis Target Cells Ovalocytes Schistocytes PT (9.0-12.0) SEC INR (0.9-1.2) Sodium (136-145) mmol/L Potassium (3.5-5.1) mmol/L Chloride (98-107) mmol/L Carbon Dioxide (21-32) mmol/L Anion Gap (7-13) mEq/L BUN (7-18) mg/dL Creatinine (0.70-1.30) mg/dL Est Cr Clr Drug Dosing mL/min Estimated GFR (MDRD) BUN/Creatinine Ratio (No establ ref range) Glucose (70-99) mg/dL POC Glucose 163 H 229 H 204 H (70-99) mg/dL Calcium (8.5-10.1) mg/dL Total Bilirubin (0.2-1.0) mg/dL AST (15-37) U/L ALT (16-63) U/L Alkaline Phosphatase (46-116) U/L Total Protein (6.4-8.2) g/dL Albumin (3.4-5.0) g/dL Globulin Albumin/Globulin Ratio 10/24/20 10/24/20 10/24/20 Range/Units 08:36 08:36 08:36 WBC 2.9 L (5.0-10.0) 10^3/uL RBC 3.14 L (4.6-6.2) 10^6/uL Hgb 9.1 L (14.0-18.0) g/dL Hct 27.4 L (40.0-54.0) % MCV 87.3 (80-100) fL MCH 29.0 (27.0-34.0) pg MCHC 33.2 (33.0-35.0) g/dL Plt Count 279 (150-450) 10^3/uL Neut % (Auto) 35.1 L (42.2-75.2) % Lymph % (Auto) 51.0 H (20.5-50.1) % [place] % (Auto) 11.2 H (2-8) % Eos % (Auto) 1.7 (1.0-3.0) % Baso % (Auto) 1.0 (0.0-1.0) % Add Manual Diff Yes Neutrophils % (Manual) 41 L (42-75) % Band Neutrophils % 6 % Lymphocytes % (Manual) 45 (20-50) % Monocytes % (Manual) 4 (2-8) % Eosinophils % (Manual) 1 (1-3) % Metamyelocytes % 2 Myelocytes % 1 Poikilocytosis 2+ moderate Target Cells Rare Ovalocytes 1+ slight Schistocytes 1+ slight PT 12.7 H (9.0-12.0) SEC INR 1.3 H (0.9-1.2) Sodium 138 (136-145) mmol/L Potassium 2.9 L (3.5-5.1) mmol/L Chloride 96 L (98-107) mmol/L Carbon Dioxide 35 H (21-32) mmol/L Anion Gap 9.9 (7-13) mEq/L BUN 36 H (7-18) mg/dL Creatinine 1.71 H (0.70-1.30) mg/dL Est Cr Clr Drug Dosing 32.59 mL/min Estimated GFR (MDRD) 39 BUN/Creatinine Ratio 21.1 (No establ ref range) Glucose 210 H (70-99) mg/dL POC Glucose (70-99) mg/dL Calcium 8.1 L (8.5-10.1) mg/dL Total Bilirubin 1.2 H (0.2-1.0) mg/dL AST 145 H (15-37) U/L ALT 399 H (16-63) U/L Alkaline Phosphatase 255 H (46-116) U/L Total Protein 8.1 (6.4-8.2) g/dL Albumin 2.8 L (3.4-5.0) g/dL Globulin 5.3 Albumin/Globulin Ratio 0.53 VICKI Results - Last 24 hrs: Microbiology 10/22/20 13:52 Aerobic Blood Culture - Preliminary Blood - Arterial Line - Abg NO GROWTH AFTER 2 DAYS Anaerobic Blood Culture - Final 10/22/20 13:49 Aerobic Blood Culture - Preliminary Blood - Arm, Right NO GROWTH AFTER 2 DAYS Anaerobic Blood Culture - Preliminary Med Orders - Current: Current Medications Acetaminophen (Acetaminophen 325 Mg Tab) 650 mg PO Q4H PRN PRN Reason: Pain (Mild 1-3)/fever Aspirin (Aspirin 81 Mg Tab.Ec) 81 mg PO DAILY [facility] Last Admin: 10/24/20 08:51 Dose: 81 mg Documented by: Atenolol (Atenolol 50 Mg Tab) 100 mg PO BID [facility] Last Admin: 10/24/20 08:51 Dose: 100 mg Documented by: Clonidine HCl (Clonidine 0.1 Mg Tab) 0.2 mg PO BID [facility] Last Admin: 10/24/20 08:51 Dose: 0.2 mg Documented by: Dextrose/Water (50% Dextrose In Water 50 Ml Syringe) 50 ml IV Q15M PRN PRN Reason: Hypoglycemia Last Admin: 10/23/20 05:06 Dose: 50 ml Documented by: Enoxaparin Sodium (Enoxaparin 30 Mg/0.3 Ml Syringe) 30 mg SUBCUT DAILY [facility] Last Admin: 10/24/20 08:50 Dose: 30 mg Documented by: Folic Acid (Folic Acid 1 Mg Tab) 1 mg PO DAILY [facility] Last Admin: 10/24/20 08:51 Dose: 1 mg Documented by: Furosemide (Furosemide 40 Mg Tab) 40 mg PO DAILY [facility] Last Admin: 10/24/20 08:51 Dose: 40 mg Documented by: Glucagon (Glucagon,Human Recombinant 1 Mg Vial) 1 mg IM Q15M PRN PRN Reason: Hypoglycemia Ampicillin Sodium/Sulbactam (Sodium 3 gm/ Sodium Chloride) 100 mls @ 100 mls/hr IV Q12H [facility] Last Infusion: 10/24/20 09:24 Dose: Infused Documented by: Insulin Glargine (Insulin Glarg,Human.Rec.Analog 100 Unit/Ml) 14 unit SUBCUT BEDTIME [facility] Last Admin: 10/23/20 21:59 Dose: 14 unit Documented by: Ruxolitinib [Jakafi] 20 Mg Tablet *Own Med* 20 mg PO BID [facility] Last Admin: 10/24/20 08:52 Dose: 20 mg Documented by: Omeprazole (Omeprazole 20 Mg Cap.Cr) 20 mg PO ACBREAKFAST [facility] Last Admin: 10/24/20 05:14 Dose: 20 mg Documented by: Ondansetron HCl (Ondansetron 4 Mg/2 Ml Sdv) 4 mg IVPUSH Q6H PRN PRN Reason: Nausea/Vomiting Sodium Chloride (Sodium Chloride 0.9% 10 Ml Syringe) 10 ml FLUSH ASDIRECTED PRN PRN Reason: Keep Vein Open Last Admin: 10/24/20 07:28 Dose: 10 ml Documented by: Discontinued Medications Acetaminophen (Acetaminophen 325 Mg Tab) 650 mg PO Q6HR PRN PRN Reason: Pain Albuterol (Albuterol 0.083% 2.5 Mg/3 Ml Neb Soln) 2.5 mg NEB ONETIME ONE Stop: 10/22/20 16:01 Last Admin: 10/22/20 19:43 Dose: 2.5 mg Documented by: Dextrose/Water (50% Dextrose In Water 50 Ml Syringe) 50 ml IV Q15M PRN PRN Reason: Hypoglycemia Glucagon (Glucagon,Human Recombinant 1 Mg Vial) 1 mg IM Q15M PRN PRN Reason: Hypoglycemia Sodium Chloride (Normal Saline) 1,000 mls @ 999 mls/hr IV .BOLUS ONE Stop: 10/22/20 15:36 Last Infusion: 10/22/20 17:27 Dose: Infused Documented by: Lactated Ringer's (Ringers, Lactated) 1,000 mls @ 125 mls/hr IV ASDIRECTED [facility] Last Admin: 10/22/20 19:36 Dose: 125 mls/hr Documented by: Insulin Regular in 0.9 % NACL (Myxredlin In Ns 100 Unit/100 Ml) 100 unit in 100 mls @ 6.759 mls/hr IV TITRATE [facility]; Protocol Last Titration: 10/23/20 03:33 Dose: 0 units/kg/hr, 0 mls/hr Documented by: Dextrose/Sodium Chloride (Dextrose 5%-Normal Saline) 1,000 mls @ 75 mls/hr IV ASDIRECTED [facility] Last Infusion: 10/23/20 02:16 Dose: 125 mls/hr Documented by: Lactated Ringer's (Ringers, Lactated) 1,000 mls @ 75 mls/hr IV ASDIRECTED [facility] Last Admin: 10/23/20 03:48 Dose: 75 mls/hr Documented by: Insulin Human Regular (Insulin Regular, Human 100 Units/Ml 3 Ml Vial) 15 unit IV ONETIME ONE Stop: 10/22/20 14:21 Last Admin: 10/22/20 14:26 Dose: 15 units Documented by: Insulin Human Regular (Insulin Regular, Human 100 Units/Ml 3 Ml Vial) 15 unit IV ONETIME ONE Stop: 10/22/20 19:31 Last Admin: 10/22/20 19:38 Dose: 15 units Documented by: Non-Formulary Medication (Anagrelide) 0.5 mg PO BID [facility] Potassium Chloride (Potassium Chloride 10 Meq Tab.Er) 40 meq PO ONETIME ONE Stop: 10/24/20 11:00 Last Admin: 10/24/20 11:09 Dose: 40 meq Documented by:
== END 2020-10-24 15:00 | disposition home or self-care (01) | DRG 638 ==
LOC: DL.ED 13:09 → DL.MS 15:00
PROVIDERS: ADMIT Family Medicine; ATTEND Family Medicine
DX: E11.10 Type 2 diabetes mellitus with ketoacidosis without coma (principal); I11.0 Hypertensive heart disease with heart failure; I13.0 Hypertensive heart and chronic kidney disease with heart failure and stage 1 through stage 4 chronic kidney disease, or unspecified chronic kidney disease; C94.6 Myelodysplastic disease, not elsewhere classified; H91.93 Unspecified hearing loss, bilateral; E78.00 Pure hypercholesterolemia, unspecified; J84.9 Interstitial pulmonary disease, unspecified; N39.0 Urinary tract infection, site not specified; D47.3 Essential (hemorrhagic) thrombocythemia; I50.9 Heart failure, unspecified; F17.210 Nicotine dependence, cigarettes, uncomplicated; D69.3 Immune thrombocytopenic purpura; N18.30 Chronic kidney disease, stage 3 unspecified; E78.5 Hyperlipidemia, unspecified; E11.22 Type 2 diabetes mellitus with diabetic chronic kidney disease; H91.90 Unspecified hearing loss, unspecified ear; I25.10 Atherosclerotic heart disease of native coronary artery without angina pectoris; K21.9 Gastro-esophageal reflux disease without esophagitis; E11.42 Type 2 diabetes mellitus with diabetic polyneuropathy; N40.0 Benign prostatic hyperplasia without lower urinary tract symptoms; N52.9 Male erectile dysfunction, unspecified; G89.29 Other chronic pain; M54.2 Cervicalgia; Z86.73 Personal history of transient ischemic attack (TIA), and cerebral infarction without residual deficits; Z79.82 Long term (current) use of aspirin; Z79.899 Other long term (current) drug therapy; Z79.4 Long term (current) use of insulin; Z98.890 Other specified postprocedural states; Z20.822 Contact with and (suspected) exposure to COVID-19
CPT/HCPCS: 0240U; 36415; 36600; 71045; 80053; 81001; 81003; 82009; 82803; 82947; 83605; 83735; 83880; 84484; 85025; 85610; 87040; 87077; 87186; 93005; 93010; 94640; 99284; 99285-25; A9270-GY; J0295; J1650; J1815-GY; J7030; J7042; J7120; J7613-GY